=== PATIENT | female | born 1965 | race Caucasian/White ===

== ENCOUNTER 2018-04-09 06:50 | Inpatient (IN) | payer SELFPAY ==
[2018-04-09] VITALS (15 sets, daily range): BP systolic 109–156; BP diastolic 57–91
[~2018-04-09] VITALS: Ht 157.5 cm; Wt 71.7 kg
[2018-04-09] MEDS ORDERED: IV NORMAL SALINE 1000ML BAG 1,000 ML IV ONE ×2 (07:00→08:45)
[2018-04-09] MEDS ORDERED: ONDANSETRON PF 4 MG/2 ML VIAL. IV ONE (07:00)
[2018-04-09] MEDS ORDERED: MORPHINE SULFATE 4 MG/ML DISP.SYRIN. IV ONE ×2 (07:00→08:15)
[2018-04-09] MEDS ORDERED: IOHEXOL 300 MG/ML 100ML VIAL. IV ONE (07:15)
[2018-04-09] MEDS ORDERED: CONTRAST GIVEN. MC PRN (07:15)
--- NOTE | 2018-04-09 07:23 | PHYS DOC ---
Past Medical History Past Medical History: No Pertinent History, CAD Past Surgical History: Cholecystectomy, Hysterectomy Alcohol Use: None Drug Use: None Adult General Chief Complaint Chief Complaint: ABDOMINAL PAIN HPI HPI Patient is a 52 year old F who presents with epigastric abdominal pain. Pt woke up with severe pain in her upper abd. Denies prior history of similar. Denies vomiting or diarrhea. Had a BM this AM which was normal for her. Denies cp, sob, dizziness. Pt is a difficult historian. PMH: notes that a few years ago she 3 times due to a heart attack PSH: Cholecystectomy SH: +Tobacco, denies ETOH, denies drugs Review of Systems Review of Systems Constitutional: Denies fever or chills Eyes: Denies change in visual acuity, redness, or eye pain HENT: Denies nasal congestion or sore throat Respiratory: Denies cough or shortness of breath Cardiovascular: Denies chest pain GI: Denies nausea, vomiting, bloody stools or diarrhea, +abd pain : Denies dysuria or hematuria Musculoskeletal: Denies back pain or joint pain Integument: Denies rash or skin lesions Neurologic: Denies headache, focal weakness or sensory changes Endocrine: Denies polyuria or polydipsia All other systems were reviewed and found to be within normal limits, except as documented in this note. Current Medications Current Medications Current Medications Medications (Trade) Dose Ordered Sig/Rajesh Start Time Stop Time Status Last Admin Dose Admin Dexamethasone Sodium Phosphate (Decadron) 20 mg STK-MED ONCE 04/09/18 08:53 04/09/18 08:54 DC Fentanyl Citrate (Fentanyl 2ml Vial) 100 mcg STK-MED ONCE 04/09/18 08:54 04/09/18 08:56 DC Info (CONTRAST GIVEN -- Rx MONITORING) 1 each PRN DAILY PRN 04/09/18 07:15 04/11/18 07:14 Iohexol (Omnipaque 300 Mg/ml) 75 ml 1X ONCE 04/09/18 07:15 04/09/18 07:16 DC 04/09/18 08:20 75 ML Lidocaine HCl (Lidocaine Pf 2% Vial) 5 ml STK-MED ONCE 04/09/18 08:53 04/09/18 08:54 DC Lorazepam (Ativan) 1 mg 1X ONCE 04/09/18 08:45 04/09/18 08:46 DC 04/09/18 08:41 1 MG Midazolam HCl (Versed) 2 mg STK-MED ONCE 04/09/18 08:54 04/09/18 08:55 DC Morphine Sulfate (Morphine Sulfate) 4 mg PRN Q2HR PRN 04/09/18 09:15 04/10/18 09:14 UNV Ondansetron HCl (Zofran) 4 mg PRN Q8HRS PRN 04/09/18 09:15 04/10/18 09:14 UNV Piperacillin Sod/ Tazobactam Sod 3.375 gm/Sodium Chloride 50 ml @ 100 mls/hr 1X ONCE 04/09/18 09:00 04/09/18 09:29 04/09/18 08:54 100 MLS/HR Propofol 20 ml @ As Directed STK-MED ONCE 04/09/18 08:53 04/09/18 08:54 DC Rocuronium [place] (Zemuron) 50 mg STK-MED ONCE 04/09/18 08:53 04/09/18 08:54 DC Sodium Chloride 1,000 ml @ 1,000 mls/hr 1X ONCE 04/09/18 08:45 04/09/18 09:44 04/09/18 08:45 1,000 MLS/HR Allergies Allergies Allergies Coded Allergies Type Severity Reaction Last Updated Verified No Known Drug Allergies 12/17/14 No Physical Exam Physical Exam Constitutional: Well developed, well nourished, no acute distress, non-toxic appearance. HENT: Normocephalic, atraumatic, bilateral external ears normal, oropharynx moist, no oral exudates, nose normal. Eyes: PERRLA, EOMI, conjunctiva normal, no discharge. Neck: Normal range of motion, no tenderness, supple, no stridor. Cardiovascular:Heart rate regular rhythm, no murmur Lungs & Thorax: Bilateral breath sounds clear to auscultation Abdomen: Bowel sounds normal, soft, TTP upper abdomen Skin: Warm, dry, no erythema, no rash. Back: No tenderness, no CVA tenderness. Extremities: No tenderness, no cyanosis, no clubbing, ROM intact, no edema. Neurologic: Alert and oriented X 3, normal motor function, normal sensory function, no focal deficits noted. Current Patient Data Vital Signs Vital Signs Date Time Temp Pulse Resp B/P (MAP) Pulse Ox O2 Delivery O2 Flow Rate FiO2 04/09/18 08:10 32 97 Room Air 04/09/18 06:58 97.8 84 151/81 (104) 97.8 Lab Values Laboratory Tests Test 04/09/18 07:10 04/09/18 07:21 04/09/18 07:22 04/09/18 07:45 White Blood Count 18.1 x10^3/uL (4.0-11.0) H Red Blood Count 4.71 x10^6/uL (3.50-5.40) Hemoglobin 14.6 g/dL (12.0-15.5) Hematocrit 42.9 % (36.0-47.0) Mean Corpuscular Volume 91 fL (79-100) Mean Corpuscular Hemoglobin 31 pg (25-35) Mean Corpuscular Hemoglobin Concent 34 g/dL (31-37) Red Cell Distribution Width 13.2 % (11.5-14.5) Platelet Count 485 x10^3/uL (140-400) H Neutrophils (%) (Auto) 74 % (31-73) H Lymphocytes (%) (Auto) 18 % (24-48) L Monocytes (%) (Auto) 6 % (0-9) Eosinophils (%) (Auto) 2 % (0-3) Basophils (%) (Auto) 1 % (0-3) Neutrophils # (Auto) 13.3 x10^3uL (1.8-7.7) H Lymphocytes # (Auto) 3.2 x10^3/uL (1.0-4.8) Monocytes # (Auto) 1.2 x10^3/uL (0.0-1.1) H Eosinophils # (Auto) 0.3 x10^3/uL (0.0-0.7) Basophils # (Auto) 0.2 x10^3/uL (0.0-0.2) Platelet Estimate Pending Lactic Acid Level 1.5 mmol/L (0.4-2.0) POC Troponin I 0.00 ng/ml (<0.08) POC Hemoglobin 14.6 g/dL (12-15) POC Hematocrit 43 % (36-40) H POC Sodium 143 mmol/L (135-145) POC Potassium 3.7 mmol/L (3.5-5.0) POC Chloride 102 mmol/L (98-110) POC Total CO2 31 mmol/L (23-32) Anion Gap 14 mmol/L (6-14) POC Blood Urea Nitrogen 27 mg/dL (8-26) H POC Creatinine 1.2 mg/dL (0.5-1.4) Glucose Level 136 mg/dL (70-99) H POC Ionized Calcium (Melba) 1.15 mmol/L (1.13-1.32) Urine Collection Type U cath Urine Color Yellow Urine Clarity Clear Urine pH 7.0 Urine Specific [place] >=1.030 Urine Protein Negative mg/dL (NEG-TRACE) Urine Glucose (UA) Negative mg/dL (NEG) Urine Ketones (Stick) Negative mg/dL (NEG) Urine Blood Negative (NEG) Urine Nitrite Negative (NEG) Urine Bilirubin Negative (NEG) Urine Urobilinogen Dipstick 1.0 mg/dL (0.2 mg/dL) Urine Leukocyte Esterase Negative (NEG) Urine RBC 6-10 /HPF (0-2) Urine WBC 0 /HPF (0-4) Urine Squamous Epithelial Cells Few /LPF Urine Bacteria 0 /HPF (0-FEW) Urine Mucus Slight /LPF Urine Opiates Screen Pos (NEG) Urine Methadone Screen Neg (NEG) Urine Barbiturates Neg (NEG) Urine Phencyclidine Screen Neg (NEG) Urine Amphetamine/Methamphetamine Pos (NEG) Urine Benzodiazepines Screen Neg (NEG) Urine Cocaine Screen Neg (NEG) Urine Cannabinoids Screen Neg (NEG) Urine Ethyl Alcohol Neg (NEG) Test 04/09/18 08:00 Sodium Level 143 mmol/L (136-145) Potassium Level 3.9 mmol/L (3.5-5.1) Chloride Level 105 mmol/L (98-107) Carbon Dioxide Level 28 mmol/L (21-32) Anion Gap 10 (6-14) Blood Urea Nitrogen 27 mg/dL (7-20) H Creatinine 1.2 mg/dL (0.6-1.0) H Estimated GFR (Cockcroft-Gault) 47.0 BUN/Creatinine Ratio 23 (6-20) H Glucose Level 152 mg/dL (70-99) H Calcium Level 9.2 mg/dL (8.5-10.1) Total Bilirubin 0.2 mg/dL (0.2-1.0) Aspartate Amino Transferase (AST) 18 U/L (15-37) Alanine Aminotransferase (ALT) 27 U/L (14-59) Alkaline Phosphatase 121 U/L (46-116) H SR-Bds-R-Type Natriuretic Peptide 67 pg/mL (0-124) Total Protein 7.4 g/dL (6.4-8.2) Albumin 3.8 g/dL (3.4-5.0) Albumin/Globulin Ratio 1.1 (1.0-1.7) Lipase 176 U/L (73-393) Laboratory Tests 04/09/18 07:10 Laboratory Tests 04/09/18 07:22 04/09/18 08:00 EKG EKG NSR 74 bpm, no ST elev or depr to suggest ischemia, normal intervals, normal axis Radiology/Procedures Radiology/Procedures Critical care time was 30 minutes minutes exclusive of procedures. Pt has a high probability of life threatening condition. Course & Med Decision Making Course & Med Decision Making Pertinent Labs and Imaging studies reviewed. (See chart for details) 52 y/o F with h/o CAD presents for epigastric abdominal pain. Exam is benign. Noted epigastric TTP. Check labs. Morphine and zofran given. CT A/P and TEST PREPARATION TUTOR ordered. CXR shows free air. CT shows free air, likely perforated gastric ulcer. Zosyn ordered. Dr. Rojas consulted, pt is NPO, plan for OR today. Pt hemodynamically stable while in ER. continue fluid resuscitation. Admit to Dr. Infante [id number]. [place] Disclaimer Dragon Disclaimer This electronic medical record was generated, in whole or in part, using a voice recognition dictation system. Departure Departure Impression: Primary Impression: Pneumoperitoneum Disposition: ADMITTED INPATIENT Admitting Physician: David Ly Condition: CRITICAL Referrals: NO PCP (PCP) NUPUR WELLER MD Apr 09, 2018 07:22
[2018-04-09 07:32] LABS: BASO # 0.2 x10^3/uL (0.0-0.2); BASO % 1 % (0-3); EOS # 0.3 x10^3/uL (0.0-0.7); EOS % 2 % (0-3); HEMATOCRIT 42.9 % (36.0-47.0); HEMOGLOBIN 14.6 g/dL (12.0-15.5); LYMPH # 3.2 x10^3/uL (1.0-4.8); LYMPH % 18 % (24-48); MEAN CORPUSCULAR HEMOGLOBIN 31 pg (25-35); MEAN CORPUSCULAR HGB CONC 34 g/dL (31-37); MEAN CORPUSCULAR VOLUME 91 fL (79-100); MONO # 1.2 x10^3/uL (0.0-1.1); MONO % 6 % (0-9); NEUT # 13.3 x10^3uL (1.8-7.7); NEUT % 74 % (31-73); PLATELET COUNT 485 x10^3/uL (140-400); RED BLOOD COUNT 4.71 x10^6/uL (3.50-5.40); RED CELL DISTRIBUTION WIDTH 13.2 % (11.5-14.5); WHITE BLOOD COUNT 18.1 x10^3/uL (4.0-11.0)
[2018-04-09 07:43] LABS: CREATININE ISTAT 1.2 mg/dL (0.5-1.4); HEMOGLOBIN ISTAT 14.6 g/dL (12-15); ION CA ISTAT 1.15 mmol/L (1.13-1.32); POTASSIUM ISTAT 3.7 mmol/L (3.5-5.0)
--- NOTE | 2018-04-09 07:55 | RAD ---
Portable chest, 04/09/2018: HISTORY: Chest pain Comparison is made to a study from 12/17/2014. The heart size and pulmonary vascularity are normal. No pulmonary infiltrate is seen. There is no evidence of pleural fluid. There is a faint lucency along the dome of the right hemidiaphragm. The appearance raises the possibility of a tiny amount of free air in the abdomen. IMPRESSION: 1. No acute infiltrates. 2. Possible pneumoperitoneum. Given the history of severe abdominal pain, CT scanning of the abdomen and pelvis is suggested for further evaluation. Electronically signed by: Jake Nguyễn MD (04/09/2018 7:51 AM) [facility]
[2018-04-09 08:05] LABS: BARBITURATES NEG (NEG); BENZODIAZEPINES NEG (NEG); CANNABINOIDS NEG (NEG); COCAINE NEG (NEG); METHADONE NEG (NEG); OPIATES POS (NEG); PHENCYCLIDINE NEG (NEG)
[2018-04-09 08:06] LABS: AMPHETAMINE/METHAMPHETAMINE POS (NEG)
[2018-04-09 08:09] LABS: BACTERIA,URINE 0 /HPF (0-FEW); BILIRUBIN,URINE NEGATIVE (NEG); CLARITY,URINE CLEAR; COLOR,URINE YELLOW; NITRITE,URINE NEGATIVE (NEG); PROTEIN,URINE NEGATIVE (NEG-TRACE); SQUAMOUS EPITHELIAL CELL,UR FEW /LPF; WBC,URINE 0 /HPF (0-4)
[2018-04-09] MEDS ORDERED: MORPHINE SULFATE 10 MG/ML VIAL. IV ONE (08:15)
[2018-04-09 08:27] LABS: CALCIUM 9.2 mg/dL (8.5-10.1); CREATININE 1.2 mg/dL (0.6-1.0); POTASSIUM 3.9 mmol/L (3.5-5.1)
[2018-04-09 08:33] LABS: ALBUMIN 3.8 g/dL (3.4-5.0); ALBUMIN/GLOBULIN RATIO 1.1 (1.0-1.7); TOTAL BILIRUBIN 0.2 mg/dL (0.2-1.0); TOTAL PROTEIN 7.4 g/dL (6.4-8.2)
--- NOTE | 2018-04-09 08:46 | EKG ---
[facility] [address] [place] [address] Test Date: 2018-04-09 Test Time: 06:53:02 Pat Name: ANTHONY SCHMIDT Department: Room: Gender: F Transportation Maintenance Operator: : 1965 Requested By: NUPUR WELLER Order Number: [id number] Reading MD: Measurements Intervals [place] Rate: 74 P: 15 ME: 138 QRS: 64 QRSD: 90 T: 58 QT: 404 QTc: 454 Interpretive Statements SINUS RHYTHM LEFT ATRIAL ABNORMALITY ABNORMAL ECG RI6.01 No previous ECG available for comparison
--- NOTE | 2018-04-09 08:50 | RAD ---
PQRS Compliance Statement: One or more of the following individualized dose reduction techniques were utilized for this examination: 1. Automated exposure control 2. Adjustment of the mA and/or kV according to patient size 3. Use of iterative reconstruction technique CT ABD PELV W/ IV CONTRST ONLY Clinical Indication: SEVERE ABD PAIN Comparison: None. Technique: Helical CT imaging of the abdomen and pelvis is performed after 60 cc of Omnipaque 300 IV contrast. Oral contrast not given. Findings: Mild dependent atelectasis in the lung bases. Cardiac size normal. There is moderate pneumoperitoneum. The source is the stomach. There is a defect of the wall that is probably a perforated ulcer at the fundus body junction along the inner curvature, for example image 20. There is free air and fluid medial to the stomach and extending inferiorly to just inferior to the pancreas. The fluid collection inferiorly does not appear well organized but measures 3 cm AP by 6.6 cm transverse, image 29. Cholecystectomy. Liver, spleen, pancreas, adrenal glands, and abdominal aorta caliber are normal. Kidneys enhance symmetrically, no hydronephrosis. There is cortical scarring of the left kidney, for example coronal image 33. There is no dilated small bowel. The appendix is normal. Scattered stool in the colon. There is no colon wall thickening. Urinary bladder is decompressed. Hysterectomy. Trace pelvic free fluid. No acute bone abnormality. IMPRESSION: 1. There is moderate pneumoperitoneum and moderate free fluid medial and inferior to the stomach. There is gastric perforation at the fundus body junction along the lesser curvature. There may be underlying ulcer. 2. Trace pelvic free fluid. FOR INTERNAL CODING PURPOSES Critical result: Findings discussed with NUPUR WELLER at 04/09/2018 8:33 AM. RESULT CODE: (C) Electronically signed by: Emmanuel Nunez MD (04/09/2018 8:46 AM) [id number]
[2018-04-09] MEDS ORDERED: ONDANSETRON PF 4 MG/2 ML VIAL. ONE (08:53)
[2018-04-09] MEDS ORDERED: DEXAMETHASONE SOD PHOS 20 MG/5 ML VIAL. ONE (08:53)
[2018-04-09] MEDS ORDERED: LIDOCAINE 2% PF Vial for OR 5 ML VIAL. ONE (08:53)
[2018-04-09] MEDS ORDERED: ROCURONIUM 50 MG/5 ML VIAL. ONE ×2 (08:53→11:55)
[2018-04-09] MEDS ORDERED: PROPOFOL 20 ML IV ONE (08:53)
[2018-04-09] MEDS ORDERED: fentaNYL PF VIAL 100 MCG/2 ML VIAL ONE ×2 (08:54→11:00)
[2018-04-09] MEDS ORDERED: MIDAZOLAM HCL/PF 2 MG/2 ML VIAL. ONE (08:54)
[2018-04-09] MEDS ORDERED: PIPERACILLIN/TAZOBACTAM 3.375 GM in IV NORMAL SALINE 50ML 50 ML IV ONE (09:00)
[2018-04-09] MEDS ORDERED: BUPIVACAINE-EPI 0.25%-1:200000 50 ML VIAL. ONE (09:01)
[2018-04-09] MEDS ORDERED: ONDANSETRON PF 4 MG/2 ML VIAL. IV PRN ×3 (09:15→15:00)
[2018-04-09] MEDS ORDERED: MORPHINE SULFATE 4 MG/ML DISP.SYRIN. IV PRN (09:15)
[2018-04-09] MEDS ORDERED: IV RINGERS,LACTATED 1000ML 1,000 ML IV SCH (09:17)
[2018-04-09] MEDS ORDERED: MORPHINE SULFATE 2 MG/ML DISP.SYRIN. IV PRN ×2 (09:30→18:45)
[2018-04-09] MEDS ORDERED: LIDOCAINE 1% PF 2 ML VIAL. ID PRN (09:30)
[2018-04-09] MEDS ORDERED: PROCHLORPERAZINE 10 MG/2 ML VIAL. IV PRN (09:30)
[2018-04-09] MEDS ORDERED: fentaNYL PF VIAL 100 MCG/2 ML VIAL IV PRN ×2 (09:30)
--- NOTE | 2018-04-09 09:36 | PDOC2 ---
CONSULT Date of Consult Date of Consult DATE: 04/09/18 TIME: 09:31 History of Present Illness Reason for Visit: The patient is a 52 year old female who reported to the ER this morning with abdominal pain. She is a difficult historian due to her discomfort, but she states the pain started this morning. She is unable to provide further details and moans repeatedly. Past Medical History Past Medical History Records show CAD, IA, tobacco use Past Surgical History Past Surgical History lap cristina, hysterectomy Social History Social History admits to tobacco use, denies alcohol Current Medications Current Medications Current Medications Sodium Chloride 1,000 ml @ 1,000 mls/hr 1X ONCE IV Last administered on at 07:36; Start 04/09/18 at 07:00; Stop 04/09/18 at 07:59; Status DC Ondansetron HCl (Zofran) 4 mg 1X ONCE IV Last administered on 04/09/18at 07:35; Start 04/09/18 at 07:00; Stop 04/09/18 at 07:02; Status DC Morphine Sulfate (Morphine Sulfate) 4 mg 1X ONCE IV Last administered on at 07:36; Start 04/09/18 at 07:00; Stop 04/09/18 at 07:03; Status DC Iohexol (Omnipaque 300 Mg/ml) 75 ml 1X ONCE IV Last administered on 04/09/18at 08:20; Start 04/09/18 at 07:15; Stop 04/09/18 at 07:16; Status DC Info (CONTRAST GIVEN -- Rx MONITORING) 1 each PRN DAILY PRN MC SEE COMMENTS; Start 04/09/18 at 07:15; Stop 04/11/18 at 07:14 Morphine Sulfate (Morphine Sulfate) 4 mg 1X ONCE IV ; Start 04/09/18 at 08:15; Stop 04/09/18 at 08:15; Status DC Morphine Sulfate (Morphine Sulfate) 6 mg 1X ONCE IV Last administered on at 08:10; Start 04/09/18 at 08:15; Stop 04/09/18 at 08:16; Status DC Lorazepam (Ativan) 1 mg 1X ONCE IV Last administered on 04/09/18at 08:41; Start 04/09/18 at 08:45; Stop 04/09/18 at 08:46; Status DC Piperacillin Sod/ Tazobactam Sod 3.375 gm/Sodium Chloride 50 ml @ 100 mls/hr 1X ONCE IV Last administered on 04/09/18at 08:54; Start 04/09/18 at 09:00; Stop 04/09/18 at 09:29; Status DC Sodium Chloride 1,000 ml @ 1,000 mls/hr 1X ONCE IV Last administered on at 08:45; Start 04/09/18 at 08:45; Stop 04/09/18 at 09:44 Propofol 20 ml @ As Directed STK-MED ONCE IV ; Start 04/09/18 at 08:53; Stop 04/09 at 08:54; Status DC Lidocaine HCl (Lidocaine Pf 2% Vial) 5 ml STK-MED ONCE .ROUTE ; Start 04/09/18 at 08:53; Stop 04/09/18 at 08:54; Status DC Dexamethasone Sodium Phosphate (Decadron) 20 mg STK-MED ONCE .ROUTE ; Start 04/09 at 08:53; Stop 04/09/18 at 08:54; Status DC Ondansetron HCl (Zofran) 4 mg STK-MED ONCE .ROUTE ; Start 04/09/18 at 08:53; Stop 04/09/18 at 08:54; Status DC Rocuronium [place] (Zemuron) 50 mg STK-MED ONCE .ROUTE ; Start 04/09/18 at 08:53 ; Stop 04/09/18 at 08:54; Status DC Midazolam HCl (Versed) 2 mg STK-MED ONCE .ROUTE ; Start 04/09/18 at 08:54; Stop 04/09/18 at 08:55; Status DC Fentanyl Citrate (Fentanyl 2ml Vial) 100 mcg STK-MED ONCE .ROUTE ; Start at 08:54; Stop 04/09/18 at 08:56; Status DC Ondansetron HCl (Zofran) 4 mg PRN Q8HRS PRN IV NAUSEA/VOMITING; Start 04/09/18 at 09:15; Stop 04/10/18 at 09:14 Morphine Sulfate (Morphine Sulfate) 4 mg PRN Q2HR PRN IV PAIN; Start 04/09/18 at 09:15; Stop 04/10/18 at 09:14 Ondansetron HCl (Zofran) 4 mg PRN Q6HRS PRN IV NAUSEA/VOMITING; Start 04/09/18 at 09:30; Stop 04/10/18 at 09:29 Fentanyl Citrate (Fentanyl 2ml Vial) 25 mcg PRN Q5MIN PRN IV MILD PAIN; Start 04/09/18 at 09:30; Stop 04/10/18 at 09:29 Fentanyl Citrate (Fentanyl 2ml Vial) 50 mcg PRN Q5MIN PRN IV MODERATE TO SEVERE PAIN; Start 04/09/18 at 09:30; Stop 04/10/18 at 09:29 Morphine Sulfate (Morphine Sulfate) 1 mg PRN Q10MIN PRN IV SEVERE PAIN; Start 04/09/18 at 09:30; Stop 04/10/18 at 09:29 Ringer's Solution 1,000 ml @ 30 mls/hr Q24H IV ; Start 04/09/18 at 09:17; Stop 04/09/18 at 21:16 Lidocaine HCl (Xylocaine-Mpf 1% Vial) 2 ml PRN 1X PRN ID PRIOR TO IV START; Start 04/09/18 at 09:30; Stop 04/10/18 at 09:29 Prochlorperazine Edisylate (Compazine) 5 mg PACU PRN PRN IV NAUSEA, MRX1; Start 04/09/18 at 09:30; Stop 04/10/18 at 09:29 Allergies Allergies: Coded Allergies: No Known Drug Allergies (Unverified , 12/17/14) ROS Review of System unable to obtain ROS due to patients discomfort Physical Exam General: Alert, severe distress HEENT: Atraumatic Lungs: Clear to auscultation Abdomen: Other (diffusely tender, acute abdomen) Extremities: No clubbing, No cyanosis Skin: No rashes MUSCULOSKELETAL: No joint tenderness, No deformity Vitals VITALS Vital Signs Date Time Temp Pulse Resp B/P (MAP) Pulse Ox O2 Delivery O2 Flow Rate FiO2 04/09/18 09:00 82 31 157/72 (100) 98 04/09/18 08:40 Room Air 04/09/18 07:00 98.7 98.7 Labs Labs Laboratory Tests Test 04/09/18 07:10 04/09/18 07:21 04/09/18 07:22 04/09/18 07:45 White Blood Count 18.1 x10^3/uL (4.0-11.0) Red Blood Count 4.71 x10^6/uL (3.50-5.40) Hemoglobin 14.6 g/dL (12.0-15.5) Hematocrit 42.9 % (36.0-47.0) Mean Corpuscular Volume 91 fL (79-100) Mean Corpuscular Hemoglobin 31 pg (25-35) Mean Corpuscular Hemoglobin Concent 34 g/dL (31-37) Red Cell Distribution Width 13.2 % (11.5-14.5) Platelet Count 485 x10^3/uL (140-400) Neutrophils (%) (Auto) 74 % (31-73) Lymphocytes (%) (Auto) 18 % (24-48) Monocytes (%) (Auto) 6 % (0-9) Eosinophils (%) (Auto) 2 % (0-3) Basophils (%) (Auto) 1 % (0-3) Neutrophils # (Auto) 13.3 x10^3uL (1.8-7.7) Lymphocytes # (Auto) 3.2 x10^3/uL (1.0-4.8) Monocytes # (Auto) 1.2 x10^3/uL (0.0-1.1) Eosinophils # (Auto) 0.3 x10^3/uL (0.0-0.7) Basophils # (Auto) 0.2 x10^3/uL (0.0-0.2) Lactic Acid Level 1.5 mmol/L (0.4-2.0) Bedside Troponin I 0.00 ng/ml (<0.08) Bedside Hemoglobin 14.6 g/dL (12-15) Bedside Hematocrit 43 % (36-40) Bedside Sodium 143 mmol/L (135-145) Bedside Potassium 3.7 mmol/L (3.5-5.0) Bedside Chloride 102 mmol/L (98-110) Bedside Total CO2 31 mmol/L (23-32) Anion Gap 14 mmol/L (6-14) Bedside Blood Urea Nitrogen 27 mg/dL (8-26) Bedside Creatinine 1.2 mg/dL (0.5-1.4) Glucose Level 136 mg/dL (70-99) Bedside Ionized Calcium (Melba) 1.15 mmol/L (1.13-1.32) Urine Collection Type U cath Urine Color Yellow Urine Clarity Clear Urine pH 7.0 Urine Specific [place] >=1.030 Urine Protein Negative mg/dL (NEG-TRACE) Urine Glucose (UA) Negative mg/dL (NEG) Urine Ketones (Stick) Negative mg/dL (NEG) Urine Blood Negative (NEG) Urine Nitrite Negative (NEG) Urine Bilirubin Negative (NEG) Urine Urobilinogen Dipstick 1.0 mg/dL (0.2 mg/dL) Urine Leukocyte Esterase Negative (NEG) Urine RBC 6-10 /HPF (0-2) Urine WBC 0 /HPF (0-4) Urine Squamous Epithelial Cells Few /LPF Urine Bacteria 0 /HPF (0-FEW) Urine Mucus Slight /LPF Urine Opiates Screen Pos (NEG) Urine Methadone Screen Neg (NEG) Urine Barbiturates Neg (NEG) Urine Phencyclidine Screen Neg (NEG) Urine Amphetamine/Methamphetamine Pos (NEG) Urine Benzodiazepines Screen Neg (NEG) Urine Cocaine Screen Neg (NEG) Urine Cannabinoids Screen Neg (NEG) Urine Ethyl Alcohol Neg (NEG) Test 04/09/18 08:00 Sodium Level 143 mmol/L (136-145) Potassium Level 3.9 mmol/L (3.5-5.1) Chloride Level 105 mmol/L (98-107) Carbon Dioxide Level 28 mmol/L (21-32) Anion Gap 10 (6-14) Blood Urea Nitrogen 27 mg/dL (7-20) Creatinine 1.2 mg/dL (0.6-1.0) Estimated GFR (Cockcroft-Gault) 47.0 BUN/Creatinine Ratio 23 (6-20) Glucose Level 152 mg/dL (70-99) Calcium Level 9.2 mg/dL (8.5-10.1) Total Bilirubin 0.2 mg/dL (0.2-1.0) Aspartate Amino Transf (AST/SGOT) 18 U/L (15-37) Alanine Aminotransferase (ALT/SGPT) 27 U/L (14-59) Alkaline Phosphatase 121 U/L (46-116) VA-Dhx-N-Type Natriuretic Peptide 67 pg/mL (0-124) Total Protein 7.4 g/dL (6.4-8.2) Albumin 3.8 g/dL (3.4-5.0) Albumin/Globulin Ratio 1.1 (1.0-1.7) Lipase 176 U/L (73-393) Laboratory Tests Test 04/09/18 07:10 04/09/18 07:21 04/09/18 07:22 04/09/18 07:45 White Blood Count 18.1 x10^3/uL (4.0-11.0) Red Blood Count 4.71 x10^6/uL (3.50-5.40) Hemoglobin 14.6 g/dL (12.0-15.5) Hematocrit 42.9 % (36.0-47.0) Mean Corpuscular Volume 91 fL (79-100) Mean Corpuscular Hemoglobin 31 pg (25-35) Mean Corpuscular Hemoglobin Concent 34 g/dL (31-37) Red Cell Distribution Width 13.2 % (11.5-14.5) Platelet Count 485 x10^3/uL (140-400) Neutrophils (%) (Auto) 74 % (31-73) Lymphocytes (%) (Auto) 18 % (24-48) Monocytes (%) (Auto) 6 % (0-9) Eosinophils (%) (Auto) 2 % (0-3) Basophils (%) (Auto) 1 % (0-3) Neutrophils # (Auto) 13.3 x10^3uL (1.8-7.7) Lymphocytes # (Auto) 3.2 x10^3/uL (1.0-4.8) Monocytes # (Auto) 1.2 x10^3/uL (0.0-1.1) Eosinophils # (Auto) 0.3 x10^3/uL (0.0-0.7) Basophils # (Auto) 0.2 x10^3/uL (0.0-0.2) Lactic Acid Level 1.5 mmol/L (0.4-2.0) Bedside Troponin I 0.00 ng/ml (<0.08) Bedside Hemoglobin 14.6 g/dL (12-15) Bedside Hematocrit 43 % (36-40) Bedside Sodium 143 mmol/L (135-145) Bedside Potassium 3.7 mmol/L (3.5-5.0) Bedside Chloride 102 mmol/L (98-110) Bedside Total CO2 31 mmol/L (23-32) Anion Gap 14 mmol/L (6-14) Bedside Blood Urea Nitrogen 27 mg/dL (8-26) Bedside Creatinine 1.2 mg/dL (0.5-1.4) Glucose Level 136 mg/dL (70-99) Bedside Ionized Calcium (Melba) 1.15 mmol/L (1.13-1.32) Urine Collection Type U cath Urine Color Yellow Urine Clarity Clear Urine pH 7.0 Urine Specific [place] >=1.030 Urine Protein Negative mg/dL (NEG-TRACE) Urine Glucose (UA) Negative mg/dL (NEG) Urine Ketones (Stick) Negative mg/dL (NEG) Urine Blood Negative (NEG) Urine Nitrite Negative (NEG) Urine Bilirubin Negative (NEG) Urine Urobilinogen Dipstick 1.0 mg/dL (0.2 mg/dL) Urine Leukocyte Esterase Negative (NEG) Urine RBC 6-10 /HPF (0-2) Urine WBC 0 /HPF (0-4) Urine Squamous Epithelial Cells Few /LPF Urine Bacteria 0 /HPF (0-FEW) Urine Mucus Slight /LPF Urine Opiates Screen Pos (NEG) Urine Methadone Screen Neg (NEG) Urine Barbiturates Neg (NEG) Urine Phencyclidine Screen Neg (NEG) Urine Amphetamine/Methamphetamine Pos (NEG) Urine Benzodiazepines Screen Neg (NEG) Urine Cocaine Screen Neg (NEG) Urine Cannabinoids Screen Neg (NEG) Urine Ethyl Alcohol Neg (NEG) Test 04/09/18 08:00 Sodium Level 143 mmol/L (136-145) Potassium Level 3.9 mmol/L (3.5-5.1) Chloride Level 105 mmol/L (98-107) Carbon Dioxide Level 28 mmol/L (21-32) Anion Gap 10 (6-14) Blood Urea Nitrogen 27 mg/dL (7-20) Creatinine 1.2 mg/dL (0.6-1.0) Estimated GFR (Cockcroft-Gault) 47.0 BUN/Creatinine Ratio 23 (6-20) Glucose Level 152 mg/dL (70-99) Calcium Level 9.2 mg/dL (8.5-10.1) Total Bilirubin 0.2 mg/dL (0.2-1.0) Aspartate Amino Transf (AST/SGOT) 18 U/L (15-37) Alanine Aminotransferase (ALT/SGPT) 27 U/L (14-59) Alkaline Phosphatase 121 U/L (46-116) LI-Yug-D-Type Natriuretic Peptide 67 pg/mL (0-124) Total Protein 7.4 g/dL (6.4-8.2) Albumin 3.8 g/dL (3.4-5.0) Albumin/Globulin Ratio 1.1 (1.0-1.7) Lipase 176 U/L (73-393) Assessment/Plan Assessment/Plan 52 year old female with abdominal pain, CT showing free air, possible gastric source. Recommend to OR for evaluation/treatment. I attempted to inform the patient of the details and risks of surgery. She states that she understands and would like to proceed. SUDHIR ORTEGA MD Apr 09, 2018 09:36
[2018-04-09] MEDS ORDERED: ALBUMIN HUMAN 5% 500 ML IV ONE (10:23)
[2018-04-09 10:47] LABS: % BANDS 3 % (0-9); % EOS 2 % (0-5); % LYMPHS 28 % (24-48); % MONOS 6 % (0-10); % SEGS 61 % (35-66)
[2018-04-09 10:48] LABS: PLT ESTIMATE INCREASED (ADEQUATE)
--- NOTE | 2018-04-09 11:13 | PDOC1 ---
History and Physical Date of Admission Date of Admission DATE: 04/09/18 TIME: 11:12 Identification/Chief Complaint Chief Complaint 52 year old F who presents with epigastric abdominal pain. ACUTE severe pain in her upper abd THIS AM Past Medical History Past Medical History Past Medical History Past Medical History: No Pertinent History, CAD Past Surgical History: Cholecystectomy, Hysterectomy Alcohol Use: None Drug Use: METH FAMILY HX HTN Renal/: No pertinent hx Family History Family History: High Cholestrol Family History: Parent Social History Smoke: No ALCOHOL: rare Drugs: Crystal meth Current Medications Current Medications Current Medications Sodium Chloride 1,000 ml @ 1,000 mls/hr 1X ONCE IV Last administered on at 07:36; Start 04/09/18 at 07:00; Stop 04/09/18 at 07:59; Status DC Ondansetron HCl (Zofran) 4 mg 1X ONCE IV Last administered on 04/09/18at 07:35; Start 04/09/18 at 07:00; Stop 04/09/18 at 07:02; Status DC Morphine Sulfate (Morphine Sulfate) 4 mg 1X ONCE IV Last administered on at 07:36; Start 04/09/18 at 07:00; Stop 04/09/18 at 07:03; Status DC Iohexol (Omnipaque 300 Mg/ml) 75 ml 1X ONCE IV Last administered on 04/09/18at 08:20; Start 04/09/18 at 07:15; Stop 04/09/18 at 07:16; Status DC Info (CONTRAST GIVEN -- Rx MONITORING) 1 each PRN DAILY PRN MC SEE COMMENTS; Start 04/09/18 at 07:15; Stop 04/11/18 at 07:14 Morphine Sulfate (Morphine Sulfate) 4 mg 1X ONCE IV ; Start 04/09/18 at 08:15; Stop 04/09/18 at 08:15; Status DC Morphine Sulfate (Morphine Sulfate) 6 mg 1X ONCE IV Last administered on at 08:10; Start 04/09/18 at 08:15; Stop 04/09/18 at 08:16; Status DC Lorazepam (Ativan) 1 mg 1X ONCE IV Last administered on 04/09/18at 08:41; Start 04/09/18 at 08:45; Stop 04/09/18 at 08:46; Status DC Piperacillin Sod/ Tazobactam Sod 3.375 gm/Sodium Chloride 50 ml @ 100 mls/hr 1X ONCE IV Last administered on 04/09/18at 08:54; Start 04/09/18 at 09:00; Stop 04/09/18 at 09:29; Status DC Sodium Chloride 1,000 ml @ 1,000 mls/hr 1X ONCE IV Last administered on at 08:45; Start 04/09/18 at 08:45; Stop 04/09/18 at 09:44; Status DC Propofol 20 ml @ As Directed STK-MED ONCE IV ; Start 04/09/18 at 08:53; Stop 04/09 at 08:54; Status DC Lidocaine HCl (Lidocaine Pf 2% Vial) 5 ml STK-MED ONCE .ROUTE ; Start 04/09/18 at 08:53; Stop 04/09/18 at 08:54; Status DC Dexamethasone Sodium Phosphate (Decadron) 20 mg STK-MED ONCE .ROUTE ; Start 04/09 at 08:53; Stop 04/09/18 at 08:54; Status DC Ondansetron HCl (Zofran) 4 mg STK-MED ONCE .ROUTE ; Start 04/09/18 at 08:53; Stop 04/09/18 at 08:54; Status DC Rocuronium [place] (Zemuron) 50 mg STK-MED ONCE .ROUTE ; Start 04/09/18 at 08:53 ; Stop 04/09/18 at 08:54; Status DC Midazolam HCl (Versed) 2 mg STK-MED ONCE .ROUTE ; Start 04/09/18 at 08:54; Stop 04/09/18 at 08:55; Status DC Fentanyl Citrate (Fentanyl 2ml Vial) 100 mcg STK-MED ONCE .ROUTE ; Start at 08:54; Stop 04/09/18 at 08:56; Status DC Ondansetron HCl (Zofran) 4 mg PRN Q8HRS PRN IV NAUSEA/VOMITING; Start 04/09/18 at 09:15; Stop 04/10/18 at 09:14 Morphine Sulfate (Morphine Sulfate) 4 mg PRN Q2HR PRN IV PAIN; Start 04/09/18 at 09:15; Stop 04/10/18 at 09:14 Ondansetron HCl (Zofran) 4 mg PRN Q6HRS PRN IV NAUSEA/VOMITING; Start 04/09/18 at 09:30; Stop 04/10/18 at 09:29 Fentanyl Citrate (Fentanyl 2ml Vial) 25 mcg PRN Q5MIN PRN IV MILD PAIN; Start 04/09/18 at 09:30; Stop 04/10/18 at 09:29 Fentanyl Citrate (Fentanyl 2ml Vial) 50 mcg PRN Q5MIN PRN IV MODERATE TO SEVERE PAIN; Start 04/09/18 at 09:30; Stop 04/10/18 at 09:29 Morphine Sulfate (Morphine Sulfate) 1 mg PRN Q10MIN PRN IV SEVERE PAIN; Start 04/09/18 at 09:30; Stop 04/10/18 at 09:29 Ringer's Solution 1,000 ml @ 30 mls/hr Q24H IV ; Start 04/09/18 at 09:17; Stop 04/09/18 at 21:16 Lidocaine HCl (Xylocaine-Mpf 1% Vial) 2 ml PRN 1X PRN ID PRIOR TO IV START; Start 04/09/18 at 09:30; Stop 04/10/18 at 09:29 Prochlorperazine Edisylate (Compazine) 5 mg PACU PRN PRN IV NAUSEA, MRX1; Start 04/09/18 at 09:30; Stop 04/10/18 at 09:29 Bupivacaine HCl/ Epinephrine Bitart (Marcaine-Epi 0.25%-[id number]) 50 ml STK-MED ONCE .ROUTE ; Start 04/09/18 at 09:01; Stop 04/09/18 at 10:02; Status DC Albumin Human 500 ml @ As Directed STK-MED ONCE IV ; Start 04/09/18 at 10:23; Stop 04/09/18 at 10:24; Status DC Fentanyl Citrate (Fentanyl 2ml Vial) 100 mcg STK-MED ONCE .ROUTE ; Start at 11:00; Stop 04/09/18 at 11:01; Status DC Allergies Allergies: Coded Allergies: No Known Drug Allergies (Unverified , 12/17/14) ROS Review of System Review of Systems Review of Systems Constitutional: Denies fever or chills Eyes: Denies change in visual acuity, redness, or eye pain HENT: Denies nasal congestion or sore throat Respiratory: Denies cough or shortness of breath Cardiovascular: Denies chest pain GI: Denies nausea, vomiting, bloody stools or diarrhea, +abd pain : Denies dysuria or hematuria Musculoskeletal: Denies back pain or joint pain Integument: Denies rash or skin lesions Neurologic: Denies headache, focal weakness or sensory changes Endocrine: Denies polyuria or polydipsia 14 PT systems were reviewed and found to be within normal limits, except as documented PSYCHOLOGICAL ROS: YES: Anxiety Physical Exam Physical Exam Physical Exam Physical Exam Constitutional: Well developed, well nourished, severe acute distress, non- toxic appearance. HENT: Normocephalic, atraumatic, bilateral external ears normal, oropharynx moist, no oral exudates, nose normal. Eyes: PERRLA, EOMI, conjunctiva normal, no discharge. Neck: Normal range of motion, no tenderness, supple, no stridor. Cardiovascular:Heart rate regular rhythm, no murmur Lungs & Thorax: Bilateral breath sounds clear to auscultation Abdomen: TTP upper abdomen Skin: Warm, dry, no erythema, no rash. Back: No tenderness, no CVA tenderness. Extremities: No tenderness, no cyanosis, no clubbing, ROM intact, no edema. Neurologic: Alert and oriented X 3, normal motor function, no focal deficits noted. General: Cooperative Breasts: Not examined Rectal Exam: not examined Extremities: No cyanosis Neuro: Cranial nerves 3-12 NL Vitals Vitals Vital Signs Date Time Temp Pulse Resp B/P (MAP) Pulse Ox O2 Delivery O2 Flow Rate FiO2 04/09/18 09:00 82 31 157/72 (100) 98 04/09/18 08:40 Room Air 04/09/18 07:00 98.7 98.7 Labs Labs Laboratory Tests Test 04/09/18 07:10 04/09/18 07:21 04/09/18 07:22 04/09/18 07:45 White Blood Count 18.1 x10^3/uL (4.0-11.0) Red Blood Count 4.71 x10^6/uL (3.50-5.40) Hemoglobin 14.6 g/dL (12.0-15.5) Hematocrit 42.9 % (36.0-47.0) Mean Corpuscular Volume 91 fL (79-100) Mean Corpuscular Hemoglobin 31 pg (25-35) Mean Corpuscular Hemoglobin Concent 34 g/dL (31-37) Red Cell Distribution Width 13.2 % (11.5-14.5) Platelet Count 485 x10^3/uL (140-400) Neutrophils (%) (Auto) 74 % (31-73) Lymphocytes (%) (Auto) 18 % (24-48) Monocytes (%) (Auto) 6 % (0-9) Eosinophils (%) (Auto) 2 % (0-3) Basophils (%) (Auto) 1 % (0-3) Neutrophils # (Auto) 13.3 x10^3uL (1.8-7.7) Lymphocytes # (Auto) 3.2 x10^3/uL (1.0-4.8) Monocytes # (Auto) 1.2 x10^3/uL (0.0-1.1) Eosinophils # (Auto) 0.3 x10^3/uL (0.0-0.7) Basophils # (Auto) 0.2 x10^3/uL (0.0-0.2) Segmented Neutrophils % 61 % (35-66) Band Neutrophils % 3 % (0-9) Lymphocytes % 28 % (24-48) Monocytes % 6 % (0-10) Eosinophils % 2 % (0-5) Platelet Estimate Increased (ADEQUATE) Lactic Acid Level 1.5 mmol/L (0.4-2.0) Bedside Troponin I 0.00 ng/ml (<0.08) Bedside Hemoglobin 14.6 g/dL (12-15) Bedside Hematocrit 43 % (36-40) Bedside Sodium 143 mmol/L (135-145) Bedside Potassium 3.7 mmol/L (3.5-5.0) Bedside Chloride 102 mmol/L (98-110) Bedside Total CO2 31 mmol/L (23-32) Anion Gap 14 mmol/L (6-14) Bedside Blood Urea Nitrogen 27 mg/dL (8-26) Bedside Creatinine 1.2 mg/dL (0.5-1.4) Glucose Level 136 mg/dL (70-99) Bedside Ionized Calcium (Melba) 1.15 mmol/L (1.13-1.32) Urine Collection Type U cath Urine Color Yellow Urine Clarity Clear Urine pH 7.0 Urine Specific [place] >=1.030 Urine Protein Negative mg/dL (NEG-TRACE) Urine Glucose (UA) Negative mg/dL (NEG) Urine Ketones (Stick) Negative mg/dL (NEG) Urine Blood Negative (NEG) Urine Nitrite Negative (NEG) Urine Bilirubin Negative (NEG) Urine Urobilinogen Dipstick 1.0 mg/dL (0.2 mg/dL) Urine Leukocyte Esterase Negative (NEG) Urine RBC 6-10 /HPF (0-2) Urine WBC 0 /HPF (0-4) Urine Squamous Epithelial Cells Few /LPF Urine Bacteria 0 /HPF (0-FEW) Urine Mucus Slight /LPF Urine Opiates Screen Pos (NEG) Urine Methadone Screen Neg (NEG) Urine Barbiturates Neg (NEG) Urine Phencyclidine Screen Neg (NEG) Urine Amphetamine/Methamphetamine Pos (NEG) Urine Benzodiazepines Screen Neg (NEG) Urine Cocaine Screen Neg (NEG) Urine Cannabinoids Screen Neg (NEG) Urine Ethyl Alcohol Neg (NEG) Test 04/09/18 08:00 Sodium Level 143 mmol/L (136-145) Potassium Level 3.9 mmol/L (3.5-5.1) Chloride Level 105 mmol/L (98-107) Carbon Dioxide Level 28 mmol/L (21-32) Anion Gap 10 (6-14) Blood Urea Nitrogen 27 mg/dL (7-20) Creatinine 1.2 mg/dL (0.6-1.0) Estimated GFR (Cockcroft-Gault) 47.0 BUN/Creatinine Ratio 23 (6-20) Glucose Level 152 mg/dL (70-99) Calcium Level 9.2 mg/dL (8.5-10.1) Total Bilirubin 0.2 mg/dL (0.2-1.0) Aspartate Amino Transf (AST/SGOT) 18 U/L (15-37) Alanine Aminotransferase (ALT/SGPT) 27 U/L (14-59) Alkaline Phosphatase 121 U/L (46-116) RC-Bmc-Y-Type Natriuretic Peptide 67 pg/mL (0-124) Total Protein 7.4 g/dL (6.4-8.2) Albumin 3.8 g/dL (3.4-5.0) Albumin/Globulin Ratio 1.1 (1.0-1.7) Lipase 176 U/L (73-393) Laboratory Tests Test 04/09/18 07:10 04/09/18 07:21 8/8/18 07:22 04/09/18 07:45 White Blood Count 18.1 x10^3/uL (4.0-11.0) Red Blood Count 4.71 x10^6/uL (3.50-5.40) Hemoglobin 14.6 g/dL (12.0-15.5) Hematocrit 42.9 % (36.0-47.0) Mean Corpuscular Volume 91 fL (79-100) Mean Corpuscular Hemoglobin 31 pg (25-35) Mean Corpuscular Hemoglobin Concent 34 g/dL (31-37) Red Cell Distribution Width 13.2 % (11.5-14.5) Platelet Count 485 x10^3/uL (140-400) Neutrophils (%) (Auto) 74 % (31-73) Lymphocytes (%) (Auto) 18 % (24-48) Monocytes (%) (Auto) 6 % (0-9) Eosinophils (%) (Auto) 2 % (0-3) Basophils (%) (Auto) 1 % (0-3) Neutrophils # (Auto) 13.3 x10^3uL (1.8-7.7) Lymphocytes # (Auto) 3.2 x10^3/uL (1.0-4.8) Monocytes # (Auto) 1.2 x10^3/uL (0.0-1.1) Eosinophils # (Auto) 0.3 x10^3/uL (0.0-0.7) Basophils # (Auto) 0.2 x10^3/uL (0.0-0.2) Segmented Neutrophils % 61 % (35-66) Band Neutrophils % 3 % (0-9) Lymphocytes % 28 % (24-48) Monocytes % 6 % (0-10) Eosinophils % 2 % (0-5) Platelet Estimate Increased (ADEQUATE) Lactic Acid Level 1.5 mmol/L (0.4-2.0) Bedside Troponin I 0.00 ng/ml (<0.08) Bedside Hemoglobin 14.6 g/dL (12-15) Bedside Hematocrit 43 % (36-40) Bedside Sodium 143 mmol/L (135-145) Bedside Potassium 3.7 mmol/L (3.5-5.0) Bedside Chloride 102 mmol/L (98-110) Bedside Total CO2 31 mmol/L (23-32) Anion Gap 14 mmol/L (6-14) Bedside Blood Urea Nitrogen 27 mg/dL (8-26) Bedside Creatinine 1.2 mg/dL (0.5-1.4) Glucose Level 136 mg/dL (70-99) Bedside Ionized Calcium (Melba) 1.15 mmol/L (1.13-1.32) Urine Collection Type U cath Urine Color Yellow Urine Clarity Clear Urine pH 7.0 Urine Specific [place] >=1.030 Urine Protein Negative mg/dL (NEG-TRACE) Urine Glucose (UA) Negative mg/dL (NEG) Urine Ketones (Stick) Negative mg/dL (NEG) Urine Blood Negative (NEG) Urine Nitrite Negative (NEG) Urine Bilirubin Negative (NEG) Urine Urobilinogen Dipstick 1.0 mg/dL (0.2 mg/dL) Urine Leukocyte Esterase Negative (NEG) Urine RBC 6-10 /HPF (0-2) Urine WBC 0 /HPF (0-4) Urine Squamous Epithelial Cells Few /LPF Urine Bacteria 0 /HPF (0-FEW) Urine Mucus Slight /LPF Urine Opiates Screen Pos (NEG) Urine Methadone Screen Neg (NEG) Urine Barbiturates Neg (NEG) Urine Phencyclidine Screen Neg (NEG) Urine Amphetamine/Methamphetamine Pos (NEG) Urine Benzodiazepines Screen Neg (NEG) Urine Cocaine Screen Neg (NEG) Urine Cannabinoids Screen Neg (NEG) Urine Ethyl Alcohol Neg (NEG) Test 04/09/18 08:00 Sodium Level 143 mmol/L (136-145) Potassium Level 3.9 mmol/L (3.5-5.1) Chloride Level 105 mmol/L (98-107) Carbon Dioxide Level 28 mmol/L (21-32) Anion Gap 10 (6-14) Blood Urea Nitrogen 27 mg/dL (7-20) Creatinine 1.2 mg/dL (0.6-1.0) Estimated GFR (Cockcroft-Gault) 47.0 BUN/Creatinine Ratio 23 (6-20) Glucose Level 152 mg/dL (70-99) Calcium Level 9.2 mg/dL (8.5-10.1) Total Bilirubin 0.2 mg/dL (0.2-1.0) Aspartate Amino Transf (AST/SGOT) 18 U/L (15-37) Alanine Aminotransferase (ALT/SGPT) 27 U/L (14-59) Alkaline Phosphatase 121 U/L (46-116) LY-Ujk-H-Type Natriuretic Peptide 67 pg/mL (0-124) Total Protein 7.4 g/dL (6.4-8.2) Albumin 3.8 g/dL (3.4-5.0) Albumin/Globulin Ratio 1.1 (1.0-1.7) Lipase 176 U/L (73-393) Images Images CT ABD PELV W/ IV CONTRST ONLY Clinical Indication: SEVERE ABD PAIN Comparison: None. Technique: Helical CT imaging of the abdomen and pelvis is performed after 60 cc of Omnipaque 300 IV contrast. Oral contrast not given. Findings: Mild dependent atelectasis in the lung bases. Cardiac size normal. There is moderate pneumoperitoneum. The source is the stomach. There is a defect of the wall that is probably a perforated ulcer at the fundus body junction along the inner curvature, for example image 20. There is free air and fluid medial to the stomach and extending inferiorly to just inferior to the pancreas. The fluid collection inferiorly does not appear well organized but measures 3 cm AP by 6.6 cm transverse, image 29. Cholecystectomy. Liver, spleen, pancreas, adrenal glands, and abdominal aorta caliber are normal. Kidneys enhance symmetrically, no hydronephrosis. There is cortical scarring of the left kidney, for example coronal image 33. There is no dilated small bowel. The appendix is normal. Scattered stool in the colon. There is no colon wall thickening. Urinary bladder is decompressed. Hysterectomy. Trace pelvic free fluid. No acute bone abnormality. IMPRESSION: 1. There is moderate pneumoperitoneum and moderate free fluid medial and inferior to the stomach. There is gastric perforation at the fundus body junction along the lesser curvature. There may be underlying ulcer. 2. Trace pelvic free fluid. VTE Prophylaxis Ordered VTE Prophylaxis Devices: Yes VTE Pharmacological Prophylaxi: Yes Assessment/Plan Assessment/Plan IMPRESSION 1 moderate pneumoperitoneum and moderate free fluid medial and inferior to the stomach. 2. gastric perforation at the fundus body junction along the lesser curvature 3. meth abuse hx 4. tobacco abuse PLAN 1. ICU ADMIT 2. GEN SURG CONSULT stat in er 3. SCD'S 4. iv ativan 2 mg q 4 hrs prn agitation 5. ID CONSULT, Antibiotics per id d/w family in room 38 min cc time Operative Note Operative Note Operative Note: Preoperative Diagnosis: Perforated viscus Postoperative Diagnosis: Gastric perforation Procedure: Exploratory laparoscopy, exploratory laparotomy, subtotal gastrectomy with Juan Luis-en-Y reconstruction Surgeon: Bob Acid Tender: Dago VILLATORO Anesthesia: Gen. EBL: 200 mL Specimen: Stomach portion to pathology Drains: 19 [place] round Reji drain to left upper quadrant, Milton drain to subcutaneous tissue DAXA DAWN MD Apr 09, 2018 11:13
[2018-04-09] MEDS ORDERED: GLYCOPYRROLATE 1 MG/5 ML VIAL. ONE (13:26)
[2018-04-09] MEDS ORDERED: NEOSTIGMINE METHYLSULFATE 5 MG/5 ML SYRINGE. ONE (13:26)
[2018-04-09] MEDS ORDERED: SEVOFLURANE > 120 MINUTES. IH ONE (13:53)
[2018-04-09] MEDS ORDERED: MORPHINE SULFATE 10 MG/ML VIAL. ONE (14:57)
[2018-04-09] MEDS ORDERED: 0.9 % SODIUM CHLORIDE 10 ML DISP.SYRIN. IV PRN (15:00)
[2018-04-09] MEDS ORDERED: MORPHINE SULFATE/PF 30 ML IV PRN (15:00)
--- NOTE | 2018-04-09 15:21 | PDOC4 ---
Operative Note Operative Note Operative Note: Preoperative Diagnosis: Perforated viscus Postoperative Diagnosis: Gastric perforation Procedure: Exploratory laparoscopy, exploratory laparotomy, subtotal gastrectomy with Juan Luis-en-Y reconstruction Surgeon: Bob [place] Electrician: Dago VILLATORO Anesthesia: Gen. EBL: 200 mL Specimen: Stomach portion to pathology Drains: 19 [place] round Reji drain to left upper quadrant, Milton drain to subcutaneous tissue Complications: None Indication: The patient is a 52-year-old female who reported to emergency department with severe abdominal pain. Her evaluation is consistent with perforated viscus showing pneumoperitoneum. We recommend urgent surgical intervention. The details and risks of surgery were discussed which include bleeding, infection, anastomotic leak, pain, hernia formation, anesthesia risk, visceral injury, potential need for additional surgery or procedure. She understands and would like to proceed. Description: The patient was taken to the operating room and placed supine on the operating table. Gen. anesthesia was performed. The abdomen was prepped with ChloraPrep and draped in a standard surgical manner. A small supraumbilical incision was made in the skin through which a Veress needle was inserted and the pneumoperitoneum was created. A visualized 5 mm trocar was inserted and the laparoscope was introduced. The patient had omentum adhesed up to the anterior abdominal wall. Another 5 mm trochar was placed in the right lateral abdomen. With a combination of sharp dissection and the Harmonic scalpel , the omentum was cleared away from the abdominal wall. We then placed an additional 5 mm trocar in the patient's right abdomen. We directed our attention toward the stomach. There was a clear abnormality with turbid contaminated fluid present. Further inspection showed the involved area to be at the lesser curvature. There was a substantial amount of perigastric inflammatory change and dark fluid making visualization of this area difficult. Based on this location we felt it prudent to proceed with an open approach. The pneumoperitoneum was relieved and the laparoscopic ports were removed. An upper vertical midline incision was made in the skin with a scalpel which was carried just below the umbilicus. Cautery dissection was carried down to the fascia and peritoneum. The Omni retractor was used for the remainder of the case to facilitate exposure. We then were able to better visualize and inspect the lesser curvature of the stomach. The perforation site appeared to be along the lesser curvature in the proximal portion of the stomach. There was a sizable defect with ongoing leakage. The perforation site appeared to be unusual for a typical peptic ulcer and the gastric wall showed marked degradation without the expected surrounding inflammatory change. Given the size and unusual appearance of the ulcer we felt it most prudent for a resection of this portion of the stomach. The duodenum distal to the pylorus was mobilized and divided with a EUNICE -75 stapling device. The omental lesser sac was then opened and divided along the mid greater curvature and inferior aspect of the stomach using the Harmonic scalpel. Some of the vessels supplying the lesser curvature were ligated with 2- 0 Vicryl and divided. We continued the dissection along the lesser curvature just proximal to the perforation site. At this level the stomach was divided using a TA 90 stapler. The specimen was sent to pathology. Gross pathologic evaluation showed the ulcer present with no evidence of tumor or other mucosal abnormality. We then proceeded with a Juan Luis-en-Y reconstruction. The ligament of Treitz was identified and an area selected approximately 40 cm distal for the Juan Luis-en-Y. The bowel was divided at this level with a EUNICE-75 stapling device. The Juan Luis limb was then brought up retrocolic to the gastric remnant. A 2 layer hand sewn end-to-side anastomosis was then constructed between the stomach remnant and small bowel. The posterior seromuscular layer was developed first with interrupted 3-0 Vicryl sutures. The next layer was then constructed with 3 -0 PDS in a running locked fashion. The anterior seromuscular layer was then completed with 3-0 Vicryl sutures. The second anastomosis involve the Y limb small bowel to the Juan Luis limb which was performed in a similar 2 layer handsewn fashion. Upon completion both anastomoses appeared patent and viable. The abdominal cavity was irrigated with sterile saline which was and suctioned. No other abnormalities were identified. A 19 [place] round Reji drain was then placed in proximity to the anastomosis with an exit site in the right lateral trocar incision. This was secured to the skin with 2-0 silk. The fascia was then approximated with a running 1 PDS suture. A Milton drain was left in the subcutaneous tissue which exited inferiorly. The skin was closed over the Milton with jose r. A sterile dressing was then applied. The patient tolerated the procedure well and was sent to the recovery room in stable condition. At the end of the case all counts were correct. ORETGA,SUDHIR D MD Apr 09, 2018 15:21
[2018-04-09] MEDS ORDERED: ENOXAPARIN 40 MG/0.4 ML SYRINGE. SQ SCH (15:30)
[2018-04-09] MEDS: POTASSIUM CL 20MEQ-0.45% NACL 1,000 ML IV SCH (16:17)
[2018-04-09] MEDS: PANTOPRAZOLE SODIUM IV DRIP 80 MG in IV NORMAL SALINE 100ML 100 ML IV SCH ×2 (16:28→23:58)
[2018-04-09] MEDS ORDERED: PIP/TAZO PER PHARMACY MC PRN (18:30)
[2018-04-09] MEDS ORDERED: VANCOMYCIN 1.75 GM in IV NORMAL SALINE 500ML BAG 500 ML IV ONE (19:00)
[2018-04-09] MEDS: PIPERACILLIN/TAZOBACTAM 3.375 GM in IV NORMAL SALINE 50ML 50 ML IV SCH ×2 (19:55→23:57)
[2018-04-09] MEDS: FLUCONAZOLE 400MG/200ML PREMIX 200 ML IV SCH (19:56)
[2018-04-09] MEDS: VANCOMYCIN PER PHARMACY MC PRN (20:02)
[2018-04-09] MEDS ORDERED: diphenhydrAMINE 50 MG/ML VIAL IVP ONE (20:45)
[2018-04-09] MEDS ORDERED: HALOPERIDOL LACTATE 5 MG/ML VIAL. IVP ONE (20:45)
[2018-04-10] VITALS (20 sets, daily range): BP systolic 95–125; BP diastolic 58–74
[2018-04-10] MEDS: MORPHINE SULFATE 4 MG/ML DISP.SYRIN. IV PRN ×7 (00:05→20:43)
[2018-04-10] MEDS: POTASSIUM CL 20MEQ-0.45% NACL 1,000 ML IV SCH ×3 (00:29→16:54)
[2018-04-10] MEDS: ENOXAPARIN 40 MG/0.4 ML SYRINGE. SQ SCH (05:58)
[2018-04-10] MEDS: PIPERACILLIN/TAZOBACTAM 3.375 GM in IV NORMAL SALINE 50ML 50 ML IV SCH ×3 (06:00→17:18)
[2018-04-10 06:53] LABS: BASO % 0 % (0-3); EOS % 0 % (0-3); HEMATOCRIT 31.9 % (36.0-47.0); HEMOGLOBIN 10.9 g/dL (12.0-15.5); LYMPH # 1.8 x10^3/uL (1.0-4.8); LYMPH % 10 % (24-48); MEAN CORPUSCULAR HEMOGLOBIN 32 pg (25-35); MEAN CORPUSCULAR HGB CONC 34 g/dL (31-37); MEAN CORPUSCULAR VOLUME 93 fL (79-100); MONO # 1.1 x10^3/uL (0.0-1.1); MONO % 7 % (0-9); NEUT % 83 % (31-73); PLATELET COUNT 300 x10^3/uL (140-400); RED BLOOD COUNT 3.44 x10^6/uL (3.50-5.40); RED CELL DISTRIBUTION WIDTH 13.5 % (11.5-14.5)
[2018-04-10 07:40] LABS: ALBUMIN 2.6 g/dL (3.4-5.0); ALBUMIN/GLOBULIN RATIO 0.8 (1.0-1.7); CALCIUM 7.8 mg/dL (8.5-10.1); TOTAL BILIRUBIN 0.5 mg/dL (0.2-1.0); TOTAL PROTEIN 5.7 g/dL (6.4-8.2)
--- NOTE | 2018-04-10 08:18 | PDOC ---
Infectious Disease Note Vital Sign Vital Signs Vital Signs Date Time Temp Pulse Resp B/P (MAP) Pulse Ox O2 Delivery O2 Flow Rate FiO2 04/10/18 07:00 99.4 90 22 107/59 (75) 95 Nasal Cannula 2.0 99.4 Labs Lab Laboratory Tests Test 04/09/18 08:00 04/09/18 18:10 04/10/18 06:30 Sodium Level 143 mmol/L (136-145) 141 mmol/L (136-145) Potassium Level 3.9 mmol/L (3.5-5.1) 4.0 mmol/L (3.5-5.1) Chloride Level 105 mmol/L (98-107) 109 mmol/L (98-107) Carbon Dioxide Level 28 mmol/L (21-32) 22 mmol/L (21-32) Anion Gap 10 (6-14) 10 (6-14) Blood Urea Nitrogen 27 mg/dL (7-20) 15 mg/dL (7-20) Creatinine 1.2 mg/dL (0.6-1.0) 1.0 mg/dL (0.6-1.0) Estimated GFR (Cockcroft-Gault) 47.0 58.0 BUN/Creatinine Ratio 23 (6-20) 15 (6-20) Glucose Level 152 mg/dL (70-99) 100 mg/dL (70-99) Calcium Level 9.2 mg/dL (8.5-10.1) 7.8 mg/dL (8.5-10.1) Total Bilirubin 0.2 mg/dL (0.2-1.0) 0.5 mg/dL (0.2-1.0) Aspartate Amino Transf (AST/SGOT) 18 U/L (15-37) 84 U/L (15-37) Alanine Aminotransferase (ALT/SGPT) 27 U/L (14-59) 97 U/L (14-59) Alkaline Phosphatase 121 U/L (46-116) 63 U/L (46-116) NA-Wpo-N-Type Natriuretic Peptide 67 pg/mL (0-124) Total Protein 7.4 g/dL (6.4-8.2) 5.7 g/dL (6.4-8.2) Albumin 3.8 g/dL (3.4-5.0) 2.6 g/dL (3.4-5.0) Albumin/Globulin Ratio 1.1 (1.0-1.7) 0.8 (1.0-1.7) Lipase 176 U/L (73-393) Lactic Acid Level 1.7 mmol/L (0.4-2.0) White Blood Count 17.0 x10^3/uL (4.0-11.0) Red Blood Count 3.44 x10^6/uL (3.50-5.40) Hemoglobin 10.9 g/dL (12.0-15.5) Hematocrit 31.9 % (36.0-47.0) Mean Corpuscular Volume 93 fL (79-100) Mean Corpuscular Hemoglobin 32 pg (25-35) Mean Corpuscular Hemoglobin Concent 34 g/dL (31-37) Red Cell Distribution Width 13.5 % (11.5-14.5) Platelet Count 300 x10^3/uL (140-400) Neutrophils (%) (Auto) 83 % (31-73) Lymphocytes (%) (Auto) 10 % (24-48) Monocytes (%) (Auto) 7 % (0-9) Eosinophils (%) (Auto) 0 % (0-3) Basophils (%) (Auto) 0 % (0-3) Neutrophils # (Auto) 14.0 x10^3uL (1.8-7.7) Lymphocytes # (Auto) 1.8 x10^3/uL (1.0-4.8) Monocytes # (Auto) 1.1 x10^3/uL (0.0-1.1) Eosinophils # (Auto) 0.0 x10^3/uL (0.0-0.7) Basophils # (Auto) 0.0 x10^3/uL (0.0-0.2) Objective Assessment Leukocytosis - reactive plus s/p Dexamethasone 04/09 Gastric perf S/p Exploratory laparoscopy, exploratory laparotomy, subtotal gastrectomy with Juan Luis-en-Y reconstruction 04/09 Encephalopathy Substance abuse Plan Plan of Care Added Vanc/zosyn/Fluconazole given history of substance abuse in the past F/u labs/cults Thank you # [phone] JUDY PACHECO MD Apr 10, 2018 08:18
[2018-04-10] MEDS ORDERED: ALBUTEROL SULFATE 2.5 MG/3 ML NEBU. NEB SCH (10:00)
[2018-04-10] MEDS: PANTOPRAZOLE SODIUM IV DRIP 80 MG in IV NORMAL SALINE 100ML 100 ML IV SCH ×2 (10:52→21:18)
[2018-04-10] MEDS: VANCOMYCIN PER PHARMACY MC PRN (11:29)
--- NOTE | 2018-04-10 12:29 | PDOC ---
JON ROBLES PANEL BUILDER 04/10/18 1229: SURGICAL PROGRESS NOTE Subjective confused Vital Signs Vital Signs Date Time Temp Pulse Resp B/P (MAP) Pulse Ox O2 Delivery O2 Flow Rate FiO2 04/10/18 12:16 98.3 90 119/65 (83) Nasal Cannula 2.0 98.3 04/10/18 11:38 94 04/10/18 07:00 22 I&O Intake and Output 04/10/18 07:00 Intake Total 2658.70 ml Output Total 3000 ml Balance -341.30 ml Intake Oral 0 ml IV Total 2658.70 ml Output Urine Total 2960 ml Drainage Total 40 ml General: Cooperative, No acute distress Abdomen: Soft, Other (dressing dry, GLENYS serosang) Labs Laboratory Tests Test 04/09/18 07:10 04/09/18 07:21 04/09/18 07:22 04/09/18 07:45 White Blood Count 18.1 x10^3/uL (4.0-11.0) Red Blood Count 4.71 x10^6/uL (3.50-5.40) Hemoglobin 14.6 g/dL (12.0-15.5) Hematocrit 42.9 % (36.0-47.0) Mean Corpuscular Volume 91 fL (79-100) Mean Corpuscular Hemoglobin 31 pg (25-35) Mean Corpuscular Hemoglobin Concent 34 g/dL (31-37) Red Cell Distribution Width 13.2 % (11.5-14.5) Platelet Count 485 x10^3/uL (140-400) Neutrophils (%) (Auto) 74 % (31-73) Lymphocytes (%) (Auto) 18 % (24-48) Monocytes (%) (Auto) 6 % (0-9) Eosinophils (%) (Auto) 2 % (0-3) Basophils (%) (Auto) 1 % (0-3) Neutrophils # (Auto) 13.3 x10^3uL (1.8-7.7) Lymphocytes # (Auto) 3.2 x10^3/uL (1.0-4.8) Monocytes # (Auto) 1.2 x10^3/uL (0.0-1.1) Eosinophils # (Auto) 0.3 x10^3/uL (0.0-0.7) Basophils # (Auto) 0.2 x10^3/uL (0.0-0.2) Segmented Neutrophils % 61 % (35-66) Band Neutrophils % 3 % (0-9) Lymphocytes % 28 % (24-48) Monocytes % 6 % (0-10) Eosinophils % 2 % (0-5) Platelet Estimate Increased (ADEQUATE) Lactic Acid Level 1.5 mmol/L (0.4-2.0) Bedside Troponin I 0.00 ng/ml (<0.08) Bedside Hemoglobin 14.6 g/dL (12-15) Bedside Hematocrit 43 % (36-40) Bedside Sodium 143 mmol/L (135-145) Bedside Potassium 3.7 mmol/L (3.5-5.0) Bedside Chloride 102 mmol/L (98-110) Bedside Total CO2 31 mmol/L (23-32) Anion Gap 14 mmol/L (6-14) Bedside Blood Urea Nitrogen 27 mg/dL (8-26) Bedside Creatinine 1.2 mg/dL (0.5-1.4) Glucose Level 136 mg/dL (70-99) Bedside Ionized Calcium (Melba) 1.15 mmol/L (1.13-1.32) Urine Collection Type U cath Urine Color Yellow Urine Clarity Clear Urine pH 7.0 Urine Specific Imogene >=1.030 Urine Protein Negative mg/dL (NEG-TRACE) Urine Glucose (UA) Negative mg/dL (NEG) Urine Ketones (Stick) Negative mg/dL (NEG) Urine Blood Negative (NEG) Urine Nitrite Negative (NEG) Urine Bilirubin Negative (NEG) Urine Urobilinogen Dipstick 1.0 mg/dL (0.2 mg/dL) Urine Leukocyte Esterase Negative (NEG) Urine RBC 6-10 /HPF (0-2) Urine WBC 0 /HPF (0-4) Urine Squamous Epithelial Cells Few /LPF Urine Bacteria 0 /HPF (0-FEW) Urine Mucus Slight /LPF Urine Opiates Screen Pos (NEG) Urine Methadone Screen Neg (NEG) Urine Barbiturates Neg (NEG) Urine Phencyclidine Screen Neg (NEG) Urine Amphetamine/Methamphetamine Pos (NEG) Urine Benzodiazepines Screen Neg (NEG) Urine Cocaine Screen Neg (NEG) Urine Cannabinoids Screen Neg (NEG) Urine Ethyl Alcohol Neg (NEG) Test 04/09/18 08:00 04/09/18 18:10 04/10/18 06:30 Sodium Level 143 mmol/L (136-145) 141 mmol/L (136-145) Potassium Level 3.9 mmol/L (3.5-5.1) 4.0 mmol/L (3.5-5.1) Chloride Level 105 mmol/L (98-107) 109 mmol/L (98-107) Carbon Dioxide Level 28 mmol/L (21-32) 22 mmol/L (21-32) Anion Gap 10 (6-14) 10 (6-14) Blood Urea Nitrogen 27 mg/dL (7-20) 15 mg/dL (7-20) Creatinine 1.2 mg/dL (0.6-1.0) 1.0 mg/dL (0.6-1.0) Estimated GFR (Cockcroft-Gault) 47.0 58.0 BUN/Creatinine Ratio 23 (6-20) 15 (6-20) Glucose Level 152 mg/dL (70-99) 100 mg/dL (70-99) Calcium Level 9.2 mg/dL (8.5-10.1) 7.8 mg/dL (8.5-10.1) Total Bilirubin 0.2 mg/dL (0.2-1.0) 0.5 mg/dL (0.2-1.0) Aspartate Amino Transf (AST/SGOT) 18 U/L (15-37) 84 U/L (15-37) Alanine Aminotransferase (ALT/SGPT) 27 U/L (14-59) 97 U/L (14-59) Alkaline Phosphatase 121 U/L (46-116) 63 U/L (46-116) WP-[id number]-Type Natriuretic Peptide 67 pg/mL (0-124) Total Protein 7.4 g/dL (6.4-8.2) 5.7 g/dL (6.4-8.2) Albumin 3.8 g/dL (3.4-5.0) 2.6 g/dL (3.4-5.0) Albumin/Globulin Ratio 1.1 (1.0-1.7) 0.8 (1.0-1.7) Lipase 176 U/L (73-393) Lactic Acid Level 1.7 mmol/L (0.4-2.0) White Blood Count 17.0 x10^3/uL (4.0-11.0) Red Blood Count 3.44 x10^6/uL (3.50-5.40) Hemoglobin 10.9 g/dL (12.0-15.5) Hematocrit 31.9 % (36.0-47.0) Mean Corpuscular Volume 93 fL (79-100) Mean Corpuscular Hemoglobin 32 pg (25-35) Mean Corpuscular Hemoglobin Concent 34 g/dL (31-37) Red Cell Distribution Width 13.5 % (11.5-14.5) Platelet Count 300 x10^3/uL (140-400) Neutrophils (%) (Auto) 83 % (31-73) Lymphocytes (%) (Auto) 10 % (24-48) Monocytes (%) (Auto) 7 % (0-9) Eosinophils (%) (Auto) 0 % (0-3) Basophils (%) (Auto) 0 % (0-3) Neutrophils # (Auto) 14.0 x10^3uL (1.8-7.7) Lymphocytes # (Auto) 1.8 x10^3/uL (1.0-4.8) Monocytes # (Auto) 1.1 x10^3/uL (0.0-1.1) Eosinophils # (Auto) 0.0 x10^3/uL (0.0-0.7) Basophils # (Auto) 0.0 x10^3/uL (0.0-0.2) Laboratory Tests Test 04/09/18 18:10 04/10/18 06:30 Lactic Acid Level 1.7 mmol/L (0.4-2.0) White Blood Count 17.0 x10^3/uL (4.0-11.0) Red Blood Count 3.44 x10^6/uL (3.50-5.40) Hemoglobin 10.9 g/dL (12.0-15.5) Hematocrit 31.9 % (36.0-47.0) Mean Corpuscular Volume 93 fL (79-100) Mean Corpuscular Hemoglobin 32 pg (25-35) Mean Corpuscular Hemoglobin Concent 34 g/dL (31-37) Red Cell Distribution Width 13.5 % (11.5-14.5) Platelet Count 300 x10^3/uL (140-400) Neutrophils (%) (Auto) 83 % (31-73) Lymphocytes (%) (Auto) 10 % (24-48) Monocytes (%) (Auto) 7 % (0-9) Eosinophils (%) (Auto) 0 % (0-3) Basophils (%) (Auto) 0 % (0-3) Neutrophils # (Auto) 14.0 x10^3uL (1.8-7.7) Lymphocytes # (Auto) 1.8 x10^3/uL (1.0-4.8) Monocytes # (Auto) 1.1 x10^3/uL (0.0-1.1) Eosinophils # (Auto) 0.0 x10^3/uL (0.0-0.7) Basophils # (Auto) 0.0 x10^3/uL (0.0-0.2) Sodium Level 141 mmol/L (136-145) Potassium Level 4.0 mmol/L (3.5-5.1) Chloride Level 109 mmol/L (98-107) Carbon Dioxide Level 22 mmol/L (21-32) Anion Gap 10 (6-14) Blood Urea Nitrogen 15 mg/dL (7-20) Creatinine 1.0 mg/dL (0.6-1.0) Estimated GFR (Cockcroft-Gault) 58.0 BUN/Creatinine Ratio 15 (6-20) Glucose Level 100 mg/dL (70-99) Calcium Level 7.8 mg/dL (8.5-10.1) Total Bilirubin 0.5 mg/dL (0.2-1.0) Aspartate Amino Transf (AST/SGOT) 84 U/L (15-37) Alanine Aminotransferase (ALT/SGPT) 97 U/L (14-59) Alkaline Phosphatase 63 U/L (46-116) Total Protein 5.7 g/dL (6.4-8.2) Albumin 2.6 g/dL (3.4-5.0) Albumin/Globulin Ratio 0.8 (1.0-1.7) Assessment/Plan POD#1Exploratory laparoscopy, exploratory laparotomy, subtotal gastrectomy with Juan Luis-en-Y reconstruction continue PPI, abx bowel rest SUDHIR ORTEGA MD 04/12/18 1023: SURGICAL PROGRESS NOTE Problem List Agree with above JON ROBLES PANEL BUILDER Apr 10, 2018 12:29 SUDHIR ORTEGA MD Apr 12, 2018 10:23
[2018-04-10] MEDS ORDERED: ALBUTEROL SULFATE 2.5 MG/3 ML NEBU. NEB PRN (13:30)
--- NOTE | 2018-04-10 13:32 | PDOC ---
PROGRESS NOTES Chief Complaint Chief Complaint Gastric perf S/p Exploratory laparoscopy, exploratory laparotomy, subtotal gastrectomy with Juan Luis-en-Y reconstruction 04/09 toxic, metabolic Encephalopathy Substance abuse with Amph leukocytosis copd with smoking h/o CAD plan: fu with ID, SX no NGT, ON NC npo ivf protonix drip as per Sx on vanco and zosyn add duoneb, albuterol dvt ppx History of Present Illness History of Present Illness ROS: no fever, chills, sob or chest pain sedated with ativan, not arousable Vitals Vitals Vital Signs Date Time Temp Pulse Resp B/P (MAP) Pulse Ox O2 Delivery O2 Flow Rate FiO2 04/10/18 13:01 98.8 87 125/65 (85) Nasal Cannula 2.0 98.8 04/10/18 11:38 94 04/10/18 07:00 22 Physical Exam Physical Exam GLENYS sanguineous liquis General: No acute distress Heart: Regular rate, Normal S1, Normal S2 Lungs: Other (bl decreased bs with mild wheezing) Abdomen: Soft, Other (dressing dry, GLENYS serosang, no bs) Extremities: No cyanosis Skin: No rashes Labs LABS Laboratory Tests Test 04/09/18 18:10 04/10/18 06:30 Lactic Acid Level 1.7 mmol/L (0.4-2.0) White Blood Count 17.0 x10^3/uL (4.0-11.0) Red Blood Count 3.44 x10^6/uL (3.50-5.40) Hemoglobin 10.9 g/dL (12.0-15.5) Hematocrit 31.9 % (36.0-47.0) Mean Corpuscular Volume 93 fL (79-100) Mean Corpuscular Hemoglobin 32 pg (25-35) Mean Corpuscular Hemoglobin Concent 34 g/dL (31-37) Red Cell Distribution Width 13.5 % (11.5-14.5) Platelet Count 300 x10^3/uL (140-400) Neutrophils (%) (Auto) 83 % (31-73) Lymphocytes (%) (Auto) 10 % (24-48) Monocytes (%) (Auto) 7 % (0-9) Eosinophils (%) (Auto) 0 % (0-3) Basophils (%) (Auto) 0 % (0-3) Neutrophils # (Auto) 14.0 x10^3uL (1.8-7.7) Lymphocytes # (Auto) 1.8 x10^3/uL (1.0-4.8) Monocytes # (Auto) 1.1 x10^3/uL (0.0-1.1) Eosinophils # (Auto) 0.0 x10^3/uL (0.0-0.7) Basophils # (Auto) 0.0 x10^3/uL (0.0-0.2) Sodium Level 141 mmol/L (136-145) Potassium Level 4.0 mmol/L (3.5-5.1) Chloride Level 109 mmol/L (98-107) Carbon Dioxide Level 22 mmol/L (21-32) Anion Gap 10 (6-14) Blood Urea Nitrogen 15 mg/dL (7-20) Creatinine 1.0 mg/dL (0.6-1.0) Estimated GFR (Cockcroft-Gault) 58.0 BUN/Creatinine Ratio 15 (6-20) Glucose Level 100 mg/dL (70-99) Calcium Level 7.8 mg/dL (8.5-10.1) Total Bilirubin 0.5 mg/dL (0.2-1.0) Aspartate Amino Transf (AST/SGOT) 84 U/L (15-37) Alanine Aminotransferase (ALT/SGPT) 97 U/L (14-59) Alkaline Phosphatase 63 U/L (46-116) Total Protein 5.7 g/dL (6.4-8.2) Albumin 2.6 g/dL (3.4-5.0) Albumin/Globulin Ratio 0.8 (1.0-1.7) Comment Review of Relevant I have reviewed the following items dariel (where applicable) has been applied. Labs Laboratory Tests Test 04/09/18 07:10 04/09/18 07:21 04/09/18 07:22 04/09/18 07:45 White Blood Count 18.1 x10^3/uL (4.0-11.0) Red Blood Count 4.71 x10^6/uL (3.50-5.40) Hemoglobin 14.6 g/dL (12.0-15.5) Hematocrit 42.9 % (36.0-47.0) Mean Corpuscular Volume 91 fL (79-100) Mean Corpuscular Hemoglobin 31 pg (25-35) Mean Corpuscular Hemoglobin Concent 34 g/dL (31-37) Red Cell Distribution Width 13.2 % (11.5-14.5) Platelet Count 485 x10^3/uL (140-400) Neutrophils (%) (Auto) 74 % (31-73) Lymphocytes (%) (Auto) 18 % (24-48) Monocytes (%) (Auto) 6 % (0-9) Eosinophils (%) (Auto) 2 % (0-3) Basophils (%) (Auto) 1 % (0-3) Neutrophils # (Auto) 13.3 x10^3uL (1.8-7.7) Lymphocytes # (Auto) 3.2 x10^3/uL (1.0-4.8) Monocytes # (Auto) 1.2 x10^3/uL (0.0-1.1) Eosinophils # (Auto) 0.3 x10^3/uL (0.0-0.7) Basophils # (Auto) 0.2 x10^3/uL (0.0-0.2) Segmented Neutrophils % 61 % (35-66) Band Neutrophils % 3 % (0-9) Lymphocytes % 28 % (24-48) Monocytes % 6 % (0-10) Eosinophils % 2 % (0-5) Platelet Estimate Increased (ADEQUATE) Lactic Acid Level 1.5 mmol/L (0.4-2.0) Bedside Troponin I 0.00 ng/ml (<0.08) Bedside Hemoglobin 14.6 g/dL (12-15) Bedside Hematocrit 43 % (36-40) Bedside Sodium 143 mmol/L (135-145) Bedside Potassium 3.7 mmol/L (3.5-5.0) Bedside Chloride 102 mmol/L (98-110) Bedside Total CO2 31 mmol/L (23-32) Anion Gap 14 mmol/L (6-14) Bedside Blood Urea Nitrogen 27 mg/dL (8-26) Bedside Creatinine 1.2 mg/dL (0.5-1.4) Glucose Level 136 mg/dL (70-99) Bedside Ionized Calcium (Melba) 1.15 mmol/L (1.13-1.32) Urine Collection Type U cath Urine Color Yellow Urine Clarity Clear Urine pH 7.0 Urine Specific [place] >=1.030 Urine Protein Negative mg/dL (NEG-TRACE) Urine Glucose (UA) Negative mg/dL (NEG) Urine Ketones (Stick) Negative mg/dL (NEG) Urine Blood Negative (NEG) Urine Nitrite Negative (NEG) Urine Bilirubin Negative (NEG) Urine Urobilinogen Dipstick 1.0 mg/dL (0.2 mg/dL) Urine Leukocyte Esterase Negative (NEG) Urine RBC 6-10 /HPF (0-2) Urine WBC 0 /HPF (0-4) Urine Squamous Epithelial Cells Few /LPF Urine Bacteria 0 /HPF (0-FEW) Urine Mucus Slight /LPF Urine Opiates Screen Pos (NEG) Urine Methadone Screen Neg (NEG) Urine Barbiturates Neg (NEG) Urine Phencyclidine Screen Neg (NEG) Urine Amphetamine/Methamphetamine Pos (NEG) Urine Benzodiazepines Screen Neg (NEG) Urine Cocaine Screen Neg (NEG) Urine Cannabinoids Screen Neg (NEG) Urine Ethyl Alcohol Neg (NEG) Test 04/09/18 08:00 04/09/18 18:10 04/10/18 06:30 Sodium Level 143 mmol/L (136-145) 141 mmol/L (136-145) Potassium Level 3.9 mmol/L (3.5-5.1) 4.0 mmol/L (3.5-5.1) Chloride Level 105 mmol/L (98-107) 109 mmol/L (98-107) Carbon Dioxide Level 28 mmol/L (21-32) 22 mmol/L (21-32) Anion Gap 10 (6-14) 10 (6-14) Blood Urea Nitrogen 27 mg/dL (7-20) 15 mg/dL (7-20) Creatinine 1.2 mg/dL (0.6-1.0) 1.0 mg/dL (0.6-1.0) Estimated GFR (Cockcroft-Gault) 47.0 58.0 BUN/Creatinine Ratio 23 (6-20) 15 (6-20) Glucose Level 152 mg/dL (70-99) 100 mg/dL (70-99) Calcium Level 9.2 mg/dL (8.5-10.1) 7.8 mg/dL (8.5-10.1) Total Bilirubin 0.2 mg/dL (0.2-1.0) 0.5 mg/dL (0.2-1.0) Aspartate Amino Transf (AST/SGOT) 18 U/L (15-37) 84 U/L (15-37) Alanine Aminotransferase (ALT/SGPT) 27 U/L (14-59) 97 U/L (14-59) Alkaline Phosphatase 121 U/L (46-116) 63 U/L (46-116) SU-Rjz-[id number]-Type Natriuretic Peptide 67 pg/mL (0-124) Total Protein 7.4 g/dL (6.4-8.2) 5.7 g/dL (6.4-8.2) Albumin 3.8 g/dL (3.4-5.0) 2.6 g/dL (3.4-5.0) Albumin/Globulin Ratio 1.1 (1.0-1.7) 0.8 (1.0-1.7) Lipase 176 U/L (73-393) Lactic Acid Level 1.7 mmol/L (0.4-2.0) White Blood Count 17.0 x10^3/uL (4.0-11.0) Red Blood Count 3.44 x10^6/uL (3.50-5.40) Hemoglobin 10.9 g/dL (12.0-15.5) Hematocrit 31.9 % (36.0-47.0) Mean Corpuscular Volume 93 fL (79-100) Mean Corpuscular Hemoglobin 32 pg (25-35) Mean Corpuscular Hemoglobin Concent 34 g/dL (31-37) Red Cell Distribution Width 13.5 % (11.5-14.5) Platelet Count 300 x10^3/uL (140-400) Neutrophils (%) (Auto) 83 % (31-73) Lymphocytes (%) (Auto) 10 % (24-48) Monocytes (%) (Auto) 7 % (0-9) Eosinophils (%) (Auto) 0 % (0-3) Basophils (%) (Auto) 0 % (0-3) Neutrophils # (Auto) 14.0 x10^3uL (1.8-7.7) Lymphocytes # (Auto) 1.8 x10^3/uL (1.0-4.8) Monocytes # (Auto) 1.1 x10^3/uL (0.0-1.1) Eosinophils # (Auto) 0.0 x10^3/uL (0.0-0.7) Basophils # (Auto) 0.0 x10^3/uL (0.0-0.2) Laboratory Tests Test 04/09/18 18:10 04/10/18 06:30 Lactic Acid Level 1.7 mmol/L (0.4-2.0) White Blood Count 17.0 x10^3/uL (4.0-11.0) Red Blood Count 3.44 x10^6/uL (3.50-5.40) Hemoglobin 10.9 g/dL (12.0-15.5) Hematocrit 31.9 % (36.0-47.0) Mean Corpuscular Volume 93 fL (79-100) Mean Corpuscular Hemoglobin 32 pg (25-35) Mean Corpuscular Hemoglobin Concent 34 g/dL (31-37) Red Cell Distribution Width 13.5 % (11.5-14.5) Platelet Count 300 x10^3/uL (140-400) Neutrophils (%) (Auto) 83 % (31-73) Lymphocytes (%) (Auto) 10 % (24-48) Monocytes (%) (Auto) 7 % (0-9) Eosinophils (%) (Auto) 0 % (0-3) Basophils (%) (Auto) 0 % (0-3) Neutrophils # (Auto) 14.0 x10^3uL (1.8-7.7) Lymphocytes # (Auto) 1.8 x10^3/uL (1.0-4.8) Monocytes # (Auto) 1.1 x10^3/uL (0.0-1.1) Eosinophils # (Auto) 0.0 x10^3/uL (0.0-0.7) Basophils # (Auto) 0.0 x10^3/uL (0.0-0.2) Sodium Level 141 mmol/L (136-145) Potassium Level 4.0 mmol/L (3.5-5.1) Chloride Level 109 mmol/L (98-107) Carbon Dioxide Level 22 mmol/L (21-32) Anion Gap 10 (6-14) Blood Urea Nitrogen 15 mg/dL (7-20) Creatinine 1.0 mg/dL (0.6-1.0) Estimated GFR (Cockcroft-Gault) 58.0 BUN/Creatinine Ratio 15 (6-20) Glucose Level 100 mg/dL (70-99) Calcium Level 7.8 mg/dL (8.5-10.1) Total Bilirubin 0.5 mg/dL (0.2-1.0) Aspartate Amino Transf (AST/SGOT) 84 U/L (15-37) Alanine Aminotransferase (ALT/SGPT) 97 U/L (14-59) Alkaline Phosphatase 63 U/L (46-116) Total Protein 5.7 g/dL (6.4-8.2) Albumin 2.6 g/dL (3.4-5.0) Albumin/Globulin Ratio 0.8 (1.0-1.7) Medications Current Medications Sodium Chloride 1,000 ml @ 1,000 mls/hr 1X ONCE IV Last administered on at 07:36; Start 04/09/18 at 07:00; Stop 04/09/18 at 07:59; Status DC Ondansetron HCl (Zofran) 4 mg 1X ONCE IV Last administered on 04/09/18at 07:35; Start 04/09/18 at 07:00; Stop 04/09/18 at 07:02; Status DC Morphine Sulfate (Morphine Sulfate) 4 mg 1X ONCE IV Last administered on at 07:36; Start 04/09/18 at 07:00; Stop 04/09/18 at 07:03; Status DC Iohexol (Omnipaque 300 Mg/ml) 75 ml 1X ONCE IV Last administered on 04/09/18at 08:20; Start 04/09/18 at 07:15; Stop 04/09/18 at 07:16; Status DC Info (CONTRAST GIVEN -- Rx MONITORING) 1 each PRN DAILY PRN MC SEE COMMENTS; Start 04/09/18 at 07:15; Stop 04/11/18 at 07:14 Morphine Sulfate (Morphine Sulfate) 4 mg 1X ONCE IV ; Start 04/09/18 at 08:15; Stop 04/09/18 at 08:15; Status DC Morphine Sulfate (Morphine Sulfate) 6 mg 1X ONCE IV Last administered on at 08:10; Start 04/09/18 at 08:15; Stop 04/09/18 at 08:16; Status DC Lorazepam (Ativan) 1 mg 1X ONCE IV Last administered on 04/09/18at 08:41; Start 04/09/18 at 08:45; Stop 04/09/18 at 08:46; Status DC Piperacillin Sod/ Tazobactam Sod 3.375 gm/Sodium Chloride 50 ml @ 100 mls/hr 1X ONCE IV Last administered on 04/09/18at 08:54; Start 04/09/18 at 09:00; Stop 04/09/18 at 09:29; Status DC Sodium Chloride 1,000 ml @ 1,000 mls/hr 1X ONCE IV Last administered on at 08:45; Start 04/09/18 at 08:45; Stop 04/09/18 at 09:44; Status DC Propofol 20 ml @ As Directed STK-MED ONCE IV ; Start 04/09/18 at 08:53; Stop 04/09 at 08:54; Status DC Lidocaine HCl (Lidocaine Pf 2% Vial) 5 ml STK-MED ONCE .ROUTE ; Start 04/09/18 at 08:53; Stop 04/09/18 at 08:54; Status DC Dexamethasone Sodium Phosphate (Decadron) 20 mg STK-MED ONCE .ROUTE ; Start 04/09 at 08:53; Stop 04/09/18 at 08:54; Status DC Ondansetron HCl (Zofran) 4 mg STK-MED ONCE .ROUTE ; Start 04/09/18 at 08:53; Stop 04/09/18 at 08:54; Status DC Rocuronium [place] (Zemuron) 50 mg STK-MED ONCE .ROUTE ; Start 04/09/18 at 08:53 ; Stop 04/09/18 at 08:54; Status DC Midazolam HCl (Versed) 2 mg STK-MED ONCE .ROUTE ; Start 04/09/18 at 08:54; Stop 04/09/18 at 08:55; Status DC Fentanyl Citrate (Fentanyl 2ml Vial) 100 mcg STK-MED ONCE .ROUTE ; Start at 08:54; Stop 04/09/18 at 08:56; Status DC Ondansetron HCl (Zofran) 4 mg PRN Q8HRS PRN IV NAUSEA/VOMITING; Start 04/09/18 at 09:15; Stop 04/09/18 at 15:20; Status DC Morphine Sulfate (Morphine Sulfate) 4 mg PRN Q2HR PRN IV PAIN Last administered on 04/09/18at 19:45; Start 04/09/18 at 09:15; Stop 04/09/18 at 20:15; Status DC Ondansetron HCl (Zofran) 4 mg PRN Q6HRS PRN IV NAUSEA/VOMITING; Start 04/09/18 at 09:30; Stop 04/09/18 at 15:20; Status DC Fentanyl Citrate (Fentanyl 2ml Vial) 25 mcg PRN Q5MIN PRN IV MILD PAIN; Start 04/09/18 at 09:30; Stop 04/09/18 at 20:14; Status DC Fentanyl Citrate (Fentanyl 2ml Vial) 50 mcg PRN Q5MIN PRN IV MODERATE TO SEVERE PAIN Last administered on 04/09/18at 15:17; Start 04/09/18 at 09:30; Stop at 20:14; Status DC Morphine Sulfate (Morphine Sulfate) 1 mg PRN Q10MIN PRN IV SEVERE PAIN; Start 04/09/18 at 09:30; Stop 04/09/18 at 20:14; Status DC Ringer's Solution 1,000 ml @ 30 mls/hr Q24H IV ; Start 04/09/18 at 09:17; Stop 04/09/18 at 20:14; Status DC Lidocaine HCl (Xylocaine-Mpf 1% Vial) 2 ml PRN 1X PRN ID PRIOR TO IV START; Start 04/09/18 at 09:30; Stop 04/09/18 at 20:14; Status DC Prochlorperazine Edisylate (Compazine) 5 mg PACU PRN PRN IV NAUSEA, MRX1; Start 04/09/18 at 09:30; Stop 04/09/18 at 20:14; Status DC Bupivacaine HCl/ Epinephrine Bitart (Marcaine-Epi 0.25%-1:311013) 50 ml STK-MED ONCE .ROUTE ; Start 04/09/18 at 09:01; Stop 04/09/18 at 10:02; Status DC Albumin Human 500 ml @ As Directed STK-MED ONCE IV ; Start 04/09/18 at 10:23; Stop 04/09/18 at 10:24; Status DC Fentanyl Citrate (Fentanyl 2ml Vial) 100 mcg STK-MED ONCE .ROUTE ; Start at 11:00; Stop 04/09/18 at 11:01; Status DC Rocuronium [place] (Zemuron) 50 mg STK-MED ONCE .ROUTE ; Start 04/09/18 at 11:55 ; Stop 04/09/18 at 11:56; Status DC Neostigmine Methylsulfate (Neostigmine Methylsulfate) 5 mg STK-MED ONCE .ROUTE ; Start 04/09/18 at 13:26; Stop 04/09/18 at 13:27; Status DC Glycopyrrolate (Robinul) 1 mg STK-MED ONCE .ROUTE ; Start 04/09/18 at 13:26; Stop 04/09/18 at 13:27; Status DC Sevoflurane (Ultane) 90 ml STK-MED ONCE IH ; Start 04/09/18 at 13:53; Stop at 13:54; Status DC Morphine Sulfate (Morphine Sulfate) 10 mg STK-MED ONCE .ROUTE ; Start 04/09/18 at 14:57; Stop 04/09/18 at 14:58; Status DC Enoxaparin Sodium (Lovenox 40mg Syringe) 40 mg Q24H SQ ; Start 04/09/18 at 15:30 ; Status Cancel Sodium Chloride (Normal Saline Flush) 3 ml QSHIFT PRN IV AFTER MEDS AND BLOOD DRAWS; Start 04/09/18 at 15:00 Potassium Chloride/Sodium Chloride 1,000 ml @ 125 mls/hr Q8H IV Last administered on 04/10/18at 08:06; Start 04/09/18 at 14:54 Morphine Sulfate 30 ml @ 0 mls/hr CONT PRN PRN IV PER PROTOCOL; Start 04/09/18 at 15:00 Ondansetron HCl (Zofran) 4 mg PRN Q6HRS PRN IV NAUESA, 1ST CHOICE; Start at 15:00 Pantoprazole Sodium 80 mg/ Sodium Chloride 100 ml @ 10 mls/hr Q10H IV Last administered on 04/10/18at 10:52; Start 04/09/18 at 15:00 Enoxaparin Sodium (Lovenox 40mg Syringe) 40 mg Q24H SQ Last administered on 04/10at 05:58; Start 04/10/18 at 05:00 Lorazepam (Ativan) 2 mg PRN Q6HRS PRN IV ANXIETY / AGITATION Last administered on 04/10/18at 05:54; Start 04/09/18 at 16:15; Stop 04/10/18 at 09:45; Status DC Vancomycin HCl (Vanco Per Pharmacy) 1 each PRN DAILY PRN MC SEE COMMENTS Last administered on 04/10/18at 11:29; Start 04/09/18 at 18:30 Piperacillin Sod/ Tazobactam Sod (Zosyn Per Pharmacy) 1 each PRN DAILY PRN MC SEE COMMENTS; Start 04/09/18 at 18:30 Fluconazole/ Sodium Chloride 200 ml @ 100 mls/hr Q24H IV Last administered on 04/09/18at 19:56; Start 04/09/18 at 19:00 Vancomycin HCl 1.75 gm/Sodium Chloride 500 ml @ 250 mls/hr 1X ONCE IV Last administered on 04/09/18at 19:56; Start 04/09/18 at 19:00; Stop 04/09/18 at 20:59; Status DC Piperacillin Sod/ Tazobactam Sod 3.375 gm/Sodium Chloride 50 ml @ 100 mls/hr Q6HRS IV Last administered on 04/10/18at 10:53; Start 04/09/18 at 18:30 Morphine Sulfate (Morphine Sulfate) 2 mg PRN Q3HRS PRN IV PAIN; Start 04/09/18 at 18:45 Morphine Sulfate (Morphine Sulfate) 4 mg PRN Q3HRS PRN IV PAIN Last administered on 04/10/18at 11:12; Start 04/09/18 at 18:45 Morphine Sulfate (Morphine Sulfate) 5 mg PRN Q3HRS PRN IV SEVERE PAIN; Start at 18:45 Vancomycin HCl 1 gm/Sodium Chloride 250 ml @ 250 mls/hr Q24H IV ; Start at 20:00 Vancomycin HCl (Vancomycin Trough Level) 1 each 1X ONCE MC ; Start 04/11/18 at 19:30; Stop 04/11/18 at 19:31 Haloperidol Lactate (Haldol Inj) 5 mg 1X ONCE IVP Last administered on at 20:44; Start 04/09/18 at 20:45; Stop 04/09/18 at 20:46; Status DC Diphenhydramine HCl (Benadryl) 25 mg 1X ONCE IVP Last administered on at 22:47; Start 04/09/18 at 20:45; Stop 04/09/18 at 20:46; Status DC Albuterol Sulfate (Ventolin Neb Soln) 2.5 mg RTQID NEB Last administered on 04/10at 11:36; Start 04/10/18 at 10:00 Lorazepam (Ativan) 2 mg PRN Q4HRS PRN IV ANXIETY / AGITATION Last administered on 04/10/18at 09:56; Start 04/10/18 at 09:45 Vitals/I & O Vital Sign - Last 24 Hours 04/09/18 04/09/18 04/09/18 04/09/18 14:45 15:00 15:15 15:17 Temp 99.1 99.1 Pulse 77 82 78 Resp 12 B/P (MAP) 115/82 (93) 115/82 (93) 109/57 (74) Pulse Ox 99 99 99 91 O2 Delivery Nasal Cannula Nasal Cannula Nasal Cannula Simple Mask O2 Flow Rate 2.0 2.0 2.0 04/09/18 04/09/18 04/09/18 04/09/18 15:30 15:45 15:47 16:00 Pulse 86 92 B/P (MAP) 121/71 (88) 138/71 (93) Pulse Ox 99 99 91 O2 Delivery Nasal Cannula Nasal Cannula Room Air Nasal Cannula O2 Flow Rate 2.0 2.0 2.0 04/09/18 04/09/18 04/09/18 04/09/18 16:00 16:30 17:00 17:30 Temp 97.3 97.3 Pulse 86 84 80 77 B/P (MAP) 138/78 (98) 136/67 (90) 149/76 (100) 130/65 (86) Pulse Ox 99 99 99 99 O2 Delivery Nasal Cannula Nasal Cannula Nasal Cannula Nasal Cannula O2 Flow Rate 2.0 2.0 2.0 2.0 04/09/18 04/09/18 04/09/18 04/09/18 18:00 19:00 19:45 20:00 Temp 97.7 97.7 Pulse 87 86 92 Resp 18 B/P (MAP) 156/86 (109) 133/79 (97) 148/91 (110) Pulse Ox 99 96 99 96 O2 Delivery Nasal Cannula Nasal Cannula Nasal Cannula Nasal Cannula O2 Flow Rate 2.0 2.0 2.0 2.0 04/09/18 04/09/18 04/09/18 04/09/18 20:00 20:15 21:00 22:00 Pulse 85 100 Resp 24 B/P (MAP) 116/68 (84) 135/73 (93) Pulse Ox 95 99 100 O2 Delivery Nasal Cannula Nasal Cannula Nasal Cannula Nasal Cannula O2 Flow Rate 2.0 2.0 2.0 2.0 04/09/18 04/10/18 04/10/18 04/10/18 23:00 00:00 00:00 00:05 Temp 97.9 97.9 Pulse 82 78 Resp 16 18 B/P (MAP) 137/78 (97) 120/68 (85) Pulse Ox 99 99 99 O2 Delivery Nasal Cannula Nasal Cannula Nasal Cannula Nasal Cannula O2 Flow Rate 2.0 2.0 2.0 2.0 04/10/18 04/10/18 04/10/18 04/10/18 01:05 02:00 03:02 03:32 Pulse 86 80 82 Resp 18 18 16 18 B/P (MAP) 113/66 (82) 110/66 (81) 120/66 (84) Pulse Ox 98 97 98 98 O2 Delivery Nasal Cannula Nasal Cannula Nasal Cannula Nasal Cannula O2 Flow Rate 2.0 2.0 2.0 2.0 04/10/18 04/10/18 04/10/18 04/10/18 04:00 04:00 04:02 05:00 Temp 97.9 97.9 Pulse 87 79 Resp 18 18 18 B/P (MAP) 97/64 (75) 115/65 (82) Pulse Ox 96 96 96 O2 Delivery Nasal Cannula Nasal Cannula Nasal Cannula O2 Flow Rate 2.0 2.0 2.0 04/10/18 04/10/18 04/10/18 04/10/18 06:00 07:00 08:00 08:00 Temp 99.4 98.7 99.4 98.7 Pulse 86 90 85 Resp 16 22 B/P (MAP) 99/58 (72) 107/59 (75) 112/60 (77) Pulse Ox 96 95 O2 Delivery Nasal Cannula Nasal Cannula Nasal Cannula Nasal Cannula O2 Flow Rate 2.0 2.0 2.0 2.0 04/10/18 04/10/18 04/10/18 04/10/18 08:05 08:35 09:04 10:09 Temp 98.8 97.8 98.8 97.8 Pulse 98 86 B/P (MAP) 95/58 (70) 107/74 (85) O2 Delivery Nasal Cannula Nasal Cannula Nasal Cannula O2 Flow Rate 2.0 2.0 2.0 2.0 04/10/18 04/10/18 04/10/18 04/10/18 11:03 11:12 11:38 11:44 Temp 98.5 98.5 Pulse 93 B/P (MAP) 116/68 (84) Pulse Ox 94 O2 Delivery Nasal Cannula Nasal Cannula Room Air Room Air O2 Flow Rate 2.0 2.0 04/10/18 04/10/18 04/10/18 12:05 12:16 13:01 Temp 98.3 98.8 98.3 98.8 Pulse 90 87 B/P (MAP) 119/65 (83) 125/65 (85) O2 Delivery Nasal Cannula Nasal Cannula Nasal Cannula O2 Flow Rate 2.0 2.0 2.0 Intake and Output 04/09/18 04/09/18 04/10/18 15:00 23:00 07:00 Intake Total 1000 ml 0 ml 1658.70 ml Output Total 1635 ml 1365 ml Balance 1000 ml -1635 ml 293.70 ml AUGUSTINE MADRID MD Apr 10, 2018 13:32
[2018-04-10] MEDS: IPRATRPIUM/ALBUTEROL 0.5/2.5MG 3 ML NEBU. NEB SCH ×2 (15:52→19:39)
--- NOTE | 2018-04-10 16:29 | CONS ---
DATE OF CONSULTATION: 04/10/2018 ROOM: 114. REQUESTING PHYSICIAN: Dr. Chao. REASON FOR CONSULTATION: Perforated stomach. HISTORY OF PRESENT ILLNESS: The patient is a 52-year-old female, currently is encephalopathic. She did not provide any past medical history, history of present illness, review of systems, obtained mainly from the chart. According to Emergency Room note, she presented to [facility] on the 8th with epigastric pain that started fairly suddenly in the upper abdomen. She had a bowel movement, which was normal. No chest pain, shortness of air. She has a history of previous report of myocardial infarction and a cholecystectomy as well as substance abuse with positive drug screen here for amphetamines and methamphetamines. She subsequently underwent a CT scan, which showed free air, possible gastric source. She was then taken to the operating room by Dr. Duran, underwent exploratory laparotomy, subtotal gastrectomy and Juan Luis-en-Y reconstruction secondary to gastric perforation. I was consulted postoperatively and instituted vancomycin, Zosyn and fluconazole given her history of substance abuse. Perioperatively, she did receive some dexamethasone. Currently, the patient is agitated, moving about the bed, not answering any questions. PAST MEDICAL HISTORY: Positive for coronary artery disease, questionable myocardial infarction, tobacco abuse, substance abuse. PAST SURGICAL HISTORY: Positive for laparoscopic cholecystectomy and hysterectomy and now the above-mentioned procedure. REVIEW OF SYSTEMS: Unobtainable. ALLERGIES: No known drug allergies. SOCIAL HISTORY: She is positive for tobacco as well as a substance abuse. FAMILY HISTORY: Unknown. CURRENT MEDICATIONS: Include Fluconazole, Zosyn, vancomycin, dexamethasone x 1 prior to procedure, Lovenox, Haldol and p.r.n. medications. PHYSICAL EXAMINATION: VITAL SIGNS: Temperature currently is 99.4, pulse 90, respirations 22, blood pressure 107/59, satting 95% on 2 liters of nasal cannula oxygen. CONSTITUTIONAL: Apparently, she is again lying in bed, but she is moving around. HEENT: Her pupils are equal and reactive. Normal conjunctivae. Oral cavity, pharynx was dry. She has nasal cannula in place. NECK: Supple, no JVD. LUNGS: Decreased in the bases. HEART: S1, S2. ABDOMEN: Has a binder in place. Under the binder, she has a surgical dressing with a GLENYS in place. Abdomen is mildly distended with decreased, but some positive bowel sounds. EXTREMITIES: No clubbing, cyanosis or gross edema. SKIN: Warm to touch without generalized signs of rash. NEUROLOGIC: She is agitated and confused. LABORATORY DATA: White count 17, hemoglobin 10.9, platelets of 300, neutrophils 83, lymphs are 10. Glucose 100, AST 84, ALT 97. Lactic acid was 1.7, creatinine of 1. Chest x-ray from the 8th no acute infiltrates. IMPRESSION: 1. Leukocytosis, in part reactive, plus status post dexamethasone on the 8th. 2. Gastric perforation. 3. Exploratory laparoscopy and exploratory laparotomy, subtotal gastrectomy with Juan Luis-en-Y reconstruction on the 8th. 4. Encephalopathy. 5. Substance abuse. RECOMMENDATIONS: Again, I added vancomycin, Zosyn, fluconazole given her history of substance abuse in the past. Concern for potential pseudomonas and/or MRSA exposure. We will follow up on labs and cultures. Thank you for the opportunity to participate in the patient's care. If your have any questions, please do not hesitate to contact me. JUDY PACHECO MD DR: [email or web address] JOB#: [id number] / [id number]
[2018-04-10] MEDS: NICOTINE 21MG PATCH. TD SCH (16:50)
[2018-04-10] MEDS: FLUCONAZOLE 400MG/200ML PREMIX 200 ML IV SCH (17:55)
[2018-04-10] MEDS ORDERED: VANCOMYCIN 1 GM in IV NORMAL SALINE 250ML 250 ML IV SCH (20:00)
[2018-04-10] MEDS: HALOPERIDOL LACTATE 5 MG/ML VIAL. IVP PRN (22:32)
[2018-04-10] MEDS: MORPHINE SULFATE 10 MG/ML VIAL. IV PRN (23:35)
[2018-04-11] VITALS (7 sets, daily range): BP systolic 96–120; BP diastolic 63–87
[2018-04-11] MEDS: PIPERACILLIN/TAZOBACTAM 3.375 GM in IV NORMAL SALINE 50ML 50 ML IV SCH ×5 (00:15→23:56)
[2018-04-11] MEDS: MORPHINE SULFATE 10 MG/ML VIAL. IV PRN ×2 (03:09→06:39)
[2018-04-11 05:13] LABS: BASO % 0 % (0-3); EOS # 0.2 x10^3/uL (0.0-0.7); EOS % 1 % (0-3); HEMATOCRIT 31.7 % (36.0-47.0); HEMOGLOBIN 10.8 g/dL (12.0-15.5); LYMPH # 1.9 x10^3/uL (1.0-4.8); LYMPH % 12 % (24-48); MEAN CORPUSCULAR HEMOGLOBIN 31 pg (25-35); MEAN CORPUSCULAR HGB CONC 34 g/dL (31-37); MEAN CORPUSCULAR VOLUME 93 fL (79-100); MONO # 1.1 x10^3/uL (0.0-1.1); MONO % 7 % (0-9); NEUT # 12.7 x10^3uL (1.8-7.7); NEUT % 80 % (31-73); PLATELET COUNT 280 x10^3/uL (140-400); RED BLOOD COUNT 3.43 x10^6/uL (3.50-5.40); RED CELL DISTRIBUTION WIDTH 13.5 % (11.5-14.5)
[2018-04-11] MEDS: ENOXAPARIN 40 MG/0.4 ML SYRINGE. SQ SCH (05:13)
[2018-04-11 05:39] LABS: CALCIUM 8.2 mg/dL (8.5-10.1); POTASSIUM 3.9 mmol/L (3.5-5.1)
[2018-04-11] MEDS: POTASSIUM CL 20MEQ-0.45% NACL 1,000 ML IV SCH ×2 (06:48→07:09)
--- NOTE | 2018-04-11 08:11 | PDOC ---
Infectious Disease Note Subjective Subjective non verbal s/p meds ROS ROS unobtainable Vital Sign Vital Signs Vital Signs Date Time Temp Pulse Resp B/P (MAP) Pulse Ox O2 Delivery O2 Flow Rate FiO2 04/11/18 07:52 16 96 Nasal Cannula 3.0 04/11/18 07:00 99.8 106 96/65 (75) 99.8 Physical Exam PHYSICAL EXAM CONSTITUTIONAL: NAD, appears comfortable. Non verbal HEENT: Her pupils are equal and reactive. Normal conjunctivae. Oral cavity, pharynx clear. She has nasal cannula in place. NECK: Supple, no JVD. LUNGS: Decreased in the bases. HEART: S1, S2. ABDOMEN: Has a binder in place. Under the binder, she has a surgical dressing with a GLENYS in place with serous tinged fluid. Abdomen is softer with decreased bowel sounds. EXTREMITIES: No clubbing, cyanosis or gross edema. SKIN: Warm to touch without generalized signs of rash. NEUROLOGIC: She is non responsive s/p meds Labs Lab Laboratory Tests Test 04/11/18 04:30 White Blood Count 16.0 x10^3/uL (4.0-11.0) Red Blood Count 3.43 x10^6/uL (3.50-5.40) Hemoglobin 10.8 g/dL (12.0-15.5) Hematocrit 31.7 % (36.0-47.0) Mean Corpuscular Volume 93 fL (79-100) Mean Corpuscular Hemoglobin 31 pg (25-35) Mean Corpuscular Hemoglobin Concent 34 g/dL (31-37) Red Cell Distribution Width 13.5 % (11.5-14.5) Platelet Count 280 x10^3/uL (140-400) Neutrophils (%) (Auto) 80 % (31-73) Lymphocytes (%) (Auto) 12 % (24-48) Monocytes (%) (Auto) 7 % (0-9) Eosinophils (%) (Auto) 1 % (0-3) Basophils (%) (Auto) 0 % (0-3) Neutrophils # (Auto) 12.7 x10^3uL (1.8-7.7) Lymphocytes # (Auto) 1.9 x10^3/uL (1.0-4.8) Monocytes # (Auto) 1.1 x10^3/uL (0.0-1.1) Eosinophils # (Auto) 0.2 x10^3/uL (0.0-0.7) Basophils # (Auto) 0.0 x10^3/uL (0.0-0.2) Sodium Level 136 mmol/L (136-145) Potassium Level 3.9 mmol/L (3.5-5.1) Chloride Level 104 mmol/L (98-107) Carbon Dioxide Level 24 mmol/L (21-32) Anion Gap 8 (6-14) Blood Urea Nitrogen 11 mg/dL (7-20) Creatinine 1.0 mg/dL (0.6-1.0) Estimated GFR (Cockcroft-Gault) 58.0 Glucose Level 75 mg/dL (70-99) Calcium Level 8.2 mg/dL (8.5-10.1) Objective Assessment Fever - ? Post op vs med vs ? withdrawl vs ID but abd improved and Chest clear Leukocytosis - improved reactive plus s/p Dexamethasone 04/09 Gastric perf Mild transaminitis S/p Exploratory laparoscopy, exploratory laparotomy, subtotal gastrectomy with Juan Luis-en-Y reconstruction 04/09 Encephalopathy - now medicated Substance abuse Plan Plan of Care D/c Vanc Begin Zyvox Blood cults times 2 Cont zosyn/Fluconazole F/u labs/cults D/w JUDY MEAD MD Apr 11, 2018 08:11
[2018-04-11] MEDS: HALOPERIDOL LACTATE 5 MG/ML VIAL. IVP PRN (08:43)
[2018-04-11] MEDS: PANTOPRAZOLE SODIUM IV DRIP 80 MG in IV NORMAL SALINE 100ML 100 ML IV SCH ×2 (08:43→17:13)
[2018-04-11] MEDS: IPRATRPIUM/ALBUTEROL 0.5/2.5MG 3 ML NEBU. NEB SCH ×4 (08:47→19:57)
--- NOTE | 2018-04-11 09:36 | PDOC ---
SURGICAL PROGRESS NOTE Subjective Sommulent, not easily aroused Vital Signs Vital Signs Date Time Temp Pulse Resp B/P (MAP) Pulse Ox O2 Delivery O2 Flow Rate FiO2 04/11/18 08:49 96 Nasal Cannula 2.0 04/11/18 07:52 16 04/11/18 07:00 99.8 106 96/65 (75) 99.8 I&O Intake and Output 04/11/18 07:00 Intake Total 2450 ml Output Total 5226 ml Balance -2776 ml IV Total 2450 ml Output Urine Total 4881 ml Drainage Total 345 ml PATIENT HAS A ALCOCER: Yes General: mild distress Abdomen: Soft, Other (hypoactive bs mild incisional TTP GLENYS) Labs Laboratory Tests Test 04/09/18 18:10 04/09/18 19:00 04/10/18 06:30 04/11/18 04:30 Lactic Acid Level 1.7 mmol/L (0.4-2.0) Nasal Screen MRSA (PCR) Negative (Negative) White Blood Count 17.0 x10^3/uL (4.0-11.0) 16.0 x10^3/uL (4.0-11.0) Red Blood Count 3.44 x10^6/uL (3.50-5.40) 3.43 x10^6/uL (3.50-5.40) Hemoglobin 10.9 g/dL (12.0-15.5) 10.8 g/dL (12.0-15.5) Hematocrit 31.9 % (36.0-47.0) 31.7 % (36.0-47.0) Mean Corpuscular Volume 93 fL (79-100) 93 fL (79-100) Mean Corpuscular Hemoglobin 32 pg (25-35) 31 pg (25-35) Mean Corpuscular Hemoglobin Concent 34 g/dL (31-37) 34 g/dL (31-37) Red Cell Distribution Width 13.5 % (11.5-14.5) 13.5 % (11.5-14.5) Platelet Count 300 x10^3/uL (140-400) 280 x10^3/uL (140-400) Neutrophils (%) (Auto) 83 % (31-73) 80 % (31-73) Lymphocytes (%) (Auto) 10 % (24-48) 12 % (24-48) Monocytes (%) (Auto) 7 % (0-9) 7 % (0-9) Eosinophils (%) (Auto) 0 % (0-3) 1 % (0-3) Basophils (%) (Auto) 0 % (0-3) 0 % (0-3) Neutrophils # (Auto) 14.0 x10^3uL (1.8-7.7) 12.7 x10^3uL (1.8-7.7) Lymphocytes # (Auto) 1.8 x10^3/uL (1.0-4.8) 1.9 x10^3/uL (1.0-4.8) Monocytes # (Auto) 1.1 x10^3/uL (0.0-1.1) 1.1 x10^3/uL (0.0-1.1) Eosinophils # (Auto) 0.0 x10^3/uL (0.0-0.7) 0.2 x10^3/uL (0.0-0.7) Basophils # (Auto) 0.0 x10^3/uL (0.0-0.2) 0.0 x10^3/uL (0.0-0.2) Sodium Level 141 mmol/L (136-145) 136 mmol/L (136-145) Potassium Level 4.0 mmol/L (3.5-5.1) 3.9 mmol/L (3.5-5.1) Chloride Level 109 mmol/L (98-107) 104 mmol/L (98-107) Carbon Dioxide Level 22 mmol/L (21-32) 24 mmol/L (21-32) Anion Gap 10 (6-14) 8 (6-14) Blood Urea Nitrogen 15 mg/dL (7-20) 11 mg/dL (7-20) Creatinine 1.0 mg/dL (0.6-1.0) 1.0 mg/dL (0.6-1.0) Estimated GFR (Cockcroft-Gault) 58.0 58.0 BUN/Creatinine Ratio 15 (6-20) Glucose Level 100 mg/dL (70-99) 75 mg/dL (70-99) Calcium Level 7.8 mg/dL (8.5-10.1) 8.2 mg/dL (8.5-10.1) Total Bilirubin 0.5 mg/dL (0.2-1.0) Aspartate Amino Transf (AST/SGOT) 84 U/L (15-37) Alanine Aminotransferase (ALT/SGPT) 97 U/L (14-59) Alkaline Phosphatase 63 U/L (46-116) Total Protein 5.7 g/dL (6.4-8.2) Albumin 2.6 g/dL (3.4-5.0) Albumin/Globulin Ratio 0.8 (1.0-1.7) Laboratory Tests Test 04/11/18 04:30 White Blood Count 16.0 x10^3/uL (4.0-11.0) Red Blood Count 3.43 x10^6/uL (3.50-5.40) Hemoglobin 10.8 g/dL (12.0-15.5) Hematocrit 31.7 % (36.0-47.0) Mean Corpuscular Volume 93 fL (79-100) Mean Corpuscular Hemoglobin 31 pg (25-35) Mean Corpuscular Hemoglobin Concent 34 g/dL (31-37) Red Cell Distribution Width 13.5 % (11.5-14.5) Platelet Count 280 x10^3/uL (140-400) Neutrophils (%) (Auto) 80 % (31-73) Lymphocytes (%) (Auto) 12 % (24-48) Monocytes (%) (Auto) 7 % (0-9) Eosinophils (%) (Auto) 1 % (0-3) Basophils (%) (Auto) 0 % (0-3) Neutrophils # (Auto) 12.7 x10^3uL (1.8-7.7) Lymphocytes # (Auto) 1.9 x10^3/uL (1.0-4.8) Monocytes # (Auto) 1.1 x10^3/uL (0.0-1.1) Eosinophils # (Auto) 0.2 x10^3/uL (0.0-0.7) Basophils # (Auto) 0.0 x10^3/uL (0.0-0.2) Sodium Level 136 mmol/L (136-145) Potassium Level 3.9 mmol/L (3.5-5.1) Chloride Level 104 mmol/L (98-107) Carbon Dioxide Level 24 mmol/L (21-32) Anion Gap 8 (6-14) Blood Urea Nitrogen 11 mg/dL (7-20) Creatinine 1.0 mg/dL (0.6-1.0) Estimated GFR (Cockcroft-Gault) 58.0 Glucose Level 75 mg/dL (70-99) Calcium Level 8.2 mg/dL (8.5-10.1) Assessment/Plan POD #2 partial gastrictomy due to perf ulcer Stable has issues with drug abuse Awaiting return of bowel function DAXA STEINER MD Apr 11, 2018 09:36
[2018-04-11] MEDS: IV NORMAL SALINE 1000ML BAG 1,000 ML IV SCH (09:44)
[2018-04-11] MEDS: NICOTINE 21MG PATCH. TD SCH (09:46)
[2018-04-11] MEDS: AMINO AC 3%/ELECTROLYTE/GLYCER 1,000 ML IV SCH ×2 (09:48→21:58)
--- NOTE | 2018-04-11 12:40 | PDOC ---
PROGRESS NOTES Chief Complaint Chief Complaint Gastric perf S/p Exploratory laparoscopy, exploratory laparotomy, subtotal gastrectomy with Juan Luis-en-Y reconstruction 04/09 toxic, metabolic Encephalopathy Substance abuse with Amph leukocytosis copd with smoking h/o CAD plan: fu with ID, SX no NGT, ON NC npo ivf change to PPN, + NS protonix drip as per Sx on zosyn as per ID, vanco dced add duoneb, albuterol dvt ppx decrease ativan and haldol. History of Present Illness History of Present Illness ROS: no chills, sob or chest pain sedated with ativan and haldol, not arousable fever 100.7 no BM post op [id number] GLENYS drain yesterday Vitals Vitals Vital Signs Date Time Temp Pulse Resp B/P (MAP) Pulse Ox O2 Delivery O2 Flow Rate FiO2 04/11/18 11:34 98 Nasal Cannula 2.0 04/11/18 11:30 99.1 94 117/63 (81) 99.1 04/11/18 07:52 16 Physical Exam Physical Exam CONSTITUTIONAL: appears comfortable. Non verbal. deep sleep HEENT: Her pupils are equal and reactive. Normal conjunctivae. Oral cavity, pharynx clear. She has nasal cannula in place. NECK: Supple, no JVD. LUNGS: Decreased in the bases. HEART: S1, S2. ABDOMEN: Has a binder in place. Under the binder, she has a surgical dressing with a GLENYS in place with serous tinged fluid. Abdomen is softer without bowel sounds. EXTREMITIES: No clubbing, cyanosis or gross edema. SKIN: Warm to touch without generalized signs of rash. NEUROLOGIC: She is non responsive s/p meds General: mild distress Heart: Regular rate, Normal S1, Normal S2 Lungs: Other (bl decreased bs ) Abdomen: Soft, Other (hypoactive bs mild incisional TTP GLENYS) Extremities: No cyanosis Skin: No rashes Labs LABS Laboratory Tests Test 04/11/18 04:30 White Blood Count 16.0 x10^3/uL (4.0-11.0) Red Blood Count 3.43 x10^6/uL (3.50-5.40) Hemoglobin 10.8 g/dL (12.0-15.5) Hematocrit 31.7 % (36.0-47.0) Mean Corpuscular Volume 93 fL (79-100) Mean Corpuscular Hemoglobin 31 pg (25-35) Mean Corpuscular Hemoglobin Concent 34 g/dL (31-37) Red Cell Distribution Width 13.5 % (11.5-14.5) Platelet Count 280 x10^3/uL (140-400) Neutrophils (%) (Auto) 80 % (31-73) Lymphocytes (%) (Auto) 12 % (24-48) Monocytes (%) (Auto) 7 % (0-9) Eosinophils (%) (Auto) 1 % (0-3) Basophils (%) (Auto) 0 % (0-3) Neutrophils # (Auto) 12.7 x10^3uL (1.8-7.7) Lymphocytes # (Auto) 1.9 x10^3/uL (1.0-4.8) Monocytes # (Auto) 1.1 x10^3/uL (0.0-1.1) Eosinophils # (Auto) 0.2 x10^3/uL (0.0-0.7) Basophils # (Auto) 0.0 x10^3/uL (0.0-0.2) Sodium Level 136 mmol/L (136-145) Potassium Level 3.9 mmol/L (3.5-5.1) Chloride Level 104 mmol/L (98-107) Carbon Dioxide Level 24 mmol/L (21-32) Anion Gap 8 (6-14) Blood Urea Nitrogen 11 mg/dL (7-20) Creatinine 1.0 mg/dL (0.6-1.0) Estimated GFR (Cockcroft-Gault) 58.0 Glucose Level 75 mg/dL (70-99) Calcium Level 8.2 mg/dL (8.5-10.1) Comment Review of Relevant I have reviewed the following items dariel (where applicable) has been applied. Labs Laboratory Tests Test 04/09/18 18:10 04/09/18 19:00 04/10/18 06:30 04/11/18 04:30 Lactic Acid Level 1.7 mmol/L (0.4-2.0) Nasal Screen MRSA (PCR) Negative (Negative) White Blood Count 17.0 x10^3/uL (4.0-11.0) 16.0 x10^3/uL (4.0-11.0) Red Blood Count 3.44 x10^6/uL (3.50-5.40) 3.43 x10^6/uL (3.50-5.40) Hemoglobin 10.9 g/dL (12.0-15.5) 10.8 g/dL (12.0-15.5) Hematocrit 31.9 % (36.0-47.0) 31.7 % (36.0-47.0) Mean Corpuscular Volume 93 fL (79-100) 93 fL (79-100) Mean Corpuscular Hemoglobin 32 pg (25-35) 31 pg (25-35) Mean Corpuscular Hemoglobin Concent 34 g/dL (31-37) 34 g/dL (31-37) Red Cell Distribution Width 13.5 % (11.5-14.5) 13.5 % (11.5-14.5) Platelet Count 300 x10^3/uL (140-400) 280 x10^3/uL (140-400) Neutrophils (%) (Auto) 83 % (31-73) 80 % (31-73) Lymphocytes (%) (Auto) 10 % (24-48) 12 % (24-48) Monocytes (%) (Auto) 7 % (0-9) 7 % (0-9) Eosinophils (%) (Auto) 0 % (0-3) 1 % (0-3) Basophils (%) (Auto) 0 % (0-3) 0 % (0-3) Neutrophils # (Auto) 14.0 x10^3uL (1.8-7.7) 12.7 x10^3uL (1.8-7.7) Lymphocytes # (Auto) 1.8 x10^3/uL (1.0-4.8) 1.9 x10^3/uL (1.0-4.8) Monocytes # (Auto) 1.1 x10^3/uL (0.0-1.1) 1.1 x10^3/uL (0.0-1.1) Eosinophils # (Auto) 0.0 x10^3/uL (0.0-0.7) 0.2 x10^3/uL (0.0-0.7) Basophils # (Auto) 0.0 x10^3/uL (0.0-0.2) 0.0 x10^3/uL (0.0-0.2) Sodium Level 141 mmol/L (136-145) 136 mmol/L (136-145) Potassium Level 4.0 mmol/L (3.5-5.1) 3.9 mmol/L (3.5-5.1) Chloride Level 109 mmol/L (98-107) 104 mmol/L (98-107) Carbon Dioxide Level 22 mmol/L (21-32) 24 mmol/L (21-32) Anion Gap 10 (6-14) 8 (6-14) Blood Urea Nitrogen 15 mg/dL (7-20) 11 mg/dL (7-20) Creatinine 1.0 mg/dL (0.6-1.0) 1.0 mg/dL (0.6-1.0) Estimated GFR (Cockcroft-Gault) 58.0 58.0 BUN/Creatinine Ratio 15 (6-20) Glucose Level 100 mg/dL (70-99) 75 mg/dL (70-99) Calcium Level 7.8 mg/dL (8.5-10.1) 8.2 mg/dL (8.5-10.1) Total Bilirubin 0.5 mg/dL (0.2-1.0) Aspartate Amino Transf (AST/SGOT) 84 U/L (15-37) Alanine Aminotransferase (ALT/SGPT) 97 U/L (14-59) Alkaline Phosphatase 63 U/L (46-116) Total Protein 5.7 g/dL (6.4-8.2) Albumin 2.6 g/dL (3.4-5.0) Albumin/Globulin Ratio 0.8 (1.0-1.7) Laboratory Tests Test 04/11/18 04:30 White Blood Count 16.0 x10^3/uL (4.0-11.0) Red Blood Count 3.43 x10^6/uL (3.50-5.40) Hemoglobin 10.8 g/dL (12.0-15.5) Hematocrit 31.7 % (36.0-47.0) Mean Corpuscular Volume 93 fL (79-100) Mean Corpuscular Hemoglobin 31 pg (25-35) Mean Corpuscular Hemoglobin Concent 34 g/dL (31-37) Red Cell Distribution Width 13.5 % (11.5-14.5) Platelet Count 280 x10^3/uL (140-400) Neutrophils (%) (Auto) 80 % (31-73) Lymphocytes (%) (Auto) 12 % (24-48) Monocytes (%) (Auto) 7 % (0-9) Eosinophils (%) (Auto) 1 % (0-3) Basophils (%) (Auto) 0 % (0-3) Neutrophils # (Auto) 12.7 x10^3uL (1.8-7.7) Lymphocytes # (Auto) 1.9 x10^3/uL (1.0-4.8) Monocytes # (Auto) 1.1 x10^3/uL (0.0-1.1) Eosinophils # (Auto) 0.2 x10^3/uL (0.0-0.7) Basophils # (Auto) 0.0 x10^3/uL (0.0-0.2) Sodium Level 136 mmol/L (136-145) Potassium Level 3.9 mmol/L (3.5-5.1) Chloride Level 104 mmol/L (98-107) Carbon Dioxide Level 24 mmol/L (21-32) Anion Gap 8 (6-14) Blood Urea Nitrogen 11 mg/dL (7-20) Creatinine 1.0 mg/dL (0.6-1.0) Estimated GFR (Cockcroft-Gault) 58.0 Glucose Level 75 mg/dL (70-99) Calcium Level 8.2 mg/dL (8.5-10.1) Medications Current Medications Sodium Chloride 1,000 ml @ 1,000 mls/hr 1X ONCE IV Last administered on at 07:36; Start 04/09/18 at 07:00; Stop 04/09/18 at 07:59; Status DC Ondansetron HCl (Zofran) 4 mg 1X ONCE IV Last administered on 04/09/18at 07:35; Start 04/09/18 at 07:00; Stop 04/09/18 at 07:02; Status DC Morphine Sulfate (Morphine Sulfate) 4 mg 1X ONCE IV Last administered on at 07:36; Start 04/09/18 at 07:00; Stop 04/09/18 at 07:03; Status DC Iohexol (Omnipaque 300 Mg/ml) 75 ml 1X ONCE IV Last administered on 04/09/18at 08:20; Start 04/09/18 at 07:15; Stop 04/09/18 at 07:16; Status DC Info (CONTRAST GIVEN -- Rx MONITORING) 1 each PRN DAILY PRN MC SEE COMMENTS; Start 04/09/18 at 07:15; Stop 04/11/18 at 07:14; Status DC Morphine Sulfate (Morphine Sulfate) 4 mg 1X ONCE IV ; Start 04/09/18 at 08:15; Stop 04/09/18 at 08:15; Status DC Morphine Sulfate (Morphine Sulfate) 6 mg 1X ONCE IV Last administered on at 08:10; Start 04/09/18 at 08:15; Stop 04/09/18 at 08:16; Status DC Lorazepam (Ativan) 1 mg 1X ONCE IV Last administered on 04/09/18at 08:41; Start 04/09/18 at 08:45; Stop 04/09/18 at 08:46; Status DC Piperacillin Sod/ Tazobactam Sod 3.375 gm/Sodium Chloride 50 ml @ 100 mls/hr 1X ONCE IV Last administered on 04/09/18at 08:54; Start 04/09/18 at 09:00; Stop 04/09/18 at 09:29; Status DC Sodium Chloride 1,000 ml @ 1,000 mls/hr 1X ONCE IV Last administered on at 08:45; Start 04/09/18 at 08:45; Stop 04/09/18 at 09:44; Status DC Propofol 20 ml @ As Directed STK-MED ONCE IV ; Start 04/09/18 at 08:53; Stop 04/09 at 08:54; Status DC Lidocaine HCl (Lidocaine Pf 2% Vial) 5 ml STK-MED ONCE .ROUTE ; Start 04/09/18 at 08:53; Stop 04/09/18 at 08:54; Status DC Dexamethasone Sodium Phosphate (Decadron) 20 mg STK-MED ONCE .ROUTE ; Start 04/09 at 08:53; Stop 04/09/18 at 08:54; Status DC Ondansetron HCl (Zofran) 4 mg STK-MED ONCE .ROUTE ; Start 04/09/18 at 08:53; Stop 04/09/18 at 08:54; Status DC Rocuronium Coy (Zemuron) 50 mg STK-MED ONCE .ROUTE ; Start 04/09/18 at 08:53 ; Stop 04/09/18 at 08:54; Status DC Midazolam HCl (Versed) 2 mg STK-MED ONCE .ROUTE ; Start 04/09/18 at 08:54; Stop 04/09/18 at 08:55; Status DC Fentanyl Citrate (Fentanyl 2ml Vial) 100 mcg STK-MED ONCE .ROUTE ; Start at 08:54; Stop 04/09/18 at 08:56; Status DC Ondansetron HCl (Zofran) 4 mg PRN Q8HRS PRN IV NAUSEA/VOMITING; Start 04/09/18 at 09:15; Stop 04/09/18 at 15:20; Status DC Morphine Sulfate (Morphine Sulfate) 4 mg PRN Q2HR PRN IV PAIN Last administered on 04/09/18at 19:45; Start 04/09/18 at 09:15; Stop 04/09/18 at 20:15; Status DC Ondansetron HCl (Zofran) 4 mg PRN Q6HRS PRN IV NAUSEA/VOMITING; Start 04/09/18 at 09:30; Stop 04/09/18 at 15:20; Status DC Fentanyl Citrate (Fentanyl 2ml Vial) 25 mcg PRN Q5MIN PRN IV MILD PAIN; Start 04/09/18 at 09:30; Stop 04/09/18 at 20:14; Status DC Fentanyl Citrate (Fentanyl 2ml Vial) 50 mcg PRN Q5MIN PRN IV MODERATE TO SEVERE PAIN Last administered on 04/09/18at 15:17; Start 04/09/18 at 09:30; Stop at 20:14; Status DC Morphine Sulfate (Morphine Sulfate) 1 mg PRN Q10MIN PRN IV SEVERE PAIN; Start 04/09/18 at 09:30; Stop 04/09/18 at 20:14; Status DC Ringer's Solution 1,000 ml @ 30 mls/hr Q24H IV ; Start 04/09/18 at 09:17; Stop 04/09/18 at 20:14; Status DC Lidocaine HCl (Xylocaine-Mpf 1% Vial) 2 ml PRN 1X PRN ID PRIOR TO IV START; Start 04/09/18 at 09:30; Stop 04/09/18 at 20:14; Status DC Prochlorperazine Edisylate (Compazine) 5 mg PACU PRN PRN IV NAUSEA, MRX1; Start 04/09/18 at 09:30; Stop 04/09/18 at 20:14; Status DC Bupivacaine HCl/ Epinephrine Bitart (Marcaine-Epi 0.25%-[id number]) 50 ml STK-MED ONCE .ROUTE ; Start 04/09/18 at 09:01; Stop 04/09/18 at 10:02; Status DC Albumin Human 500 ml @ As Directed STK-MED ONCE IV ; Start 04/09/18 at 10:23; Stop 04/09/18 at 10:24; Status DC Fentanyl Citrate (Fentanyl 2ml Vial) 100 mcg STK-MED ONCE .ROUTE ; Start at 11:00; Stop 04/09/18 at 11:01; Status DC Rocuronium Coy (Zemuron) 50 mg STK-MED ONCE .ROUTE ; Start 04/09/18 at 11:55 ; Stop 04/09/18 at 11:56; Status DC Neostigmine Methylsulfate (Neostigmine Methylsulfate) 5 mg STK-MED ONCE .ROUTE ; Start 04/09/18 at 13:26; Stop 04/09/18 at 13:27; Status DC Glycopyrrolate (Robinul) 1 mg STK-MED ONCE .ROUTE ; Start 04/09/18 at 13:26; Stop 04/09/18 at 13:27; Status DC Sevoflurane (Ultane) 90 ml STK-MED ONCE IH ; Start 04/09/18 at 13:53; Stop at 13:54; Status DC Morphine Sulfate (Morphine Sulfate) 10 mg STK-MED ONCE .ROUTE ; Start 04/09/18 at 14:57; Stop 04/09/18 at 14:58; Status DC Enoxaparin Sodium (Lovenox 40mg Syringe) 40 mg Q24H SQ ; Start 04/09/18 at 15:30 ; Status Cancel Sodium Chloride (Normal Saline Flush) 3 ml QSHIFT PRN IV AFTER MEDS AND BLOOD DRAWS; Start 04/09/18 at 15:00 Potassium Chloride/Sodium Chloride 1,000 ml @ 125 mls/hr Q8H IV Last administered on 04/11/18at 07:09; Start 04/09/18 at 14:54; Stop 04/11/18 at 09:29 ; Status DC Morphine Sulfate 30 ml @ 0 mls/hr CONT PRN PRN IV PER PROTOCOL; Start 04/09/18 at 15:00 Ondansetron HCl (Zofran) 4 mg PRN Q6HRS PRN IV NAUESA, 1ST CHOICE; Start at 15:00 Pantoprazole Sodium 80 mg/ Sodium Chloride 100 ml @ 10 mls/hr Q10H IV Last administered on 04/11/18at 08:43; Start 04/09/18 at 15:00 Enoxaparin Sodium (Lovenox 40mg Syringe) 40 mg Q24H SQ Last administered on 06/19at 05:13; Start 04/10/18 at 05:00 Lorazepam (Ativan) 2 mg PRN Q6HRS PRN IV ANXIETY / AGITATION Last administered on 04/10/18at 05:54; Start 04/09/18 at 16:15; Stop 04/10/18 at 09:45; Status DC Vancomycin HCl (Vanco Per Pharmacy) 1 each PRN DAILY PRN MC SEE COMMENTS Last administered on 04/10/18at 11:29; Start 04/09/18 at 18:30; Stop 04/11/18 at 08:09; Status DC Piperacillin Sod/ Tazobactam Sod (Zosyn Per Pharmacy) 1 each PRN DAILY PRN MC SEE COMMENTS; Start 04/09/18 at 18:30 Fluconazole/ Sodium Chloride 200 ml @ 100 mls/hr Q24H IV Last administered on 04/10/18at 17:55; Start 04/09/18 at 19:00 Vancomycin HCl 1.75 gm/Sodium Chloride 500 ml @ 250 mls/hr 1X ONCE IV Last administered on 04/09/18at 19:56; Start 04/09/18 at 19:00; Stop 04/09/18 at 20:59; Status DC Piperacillin Sod/ Tazobactam Sod 3.375 gm/Sodium Chloride 50 ml @ 100 mls/hr Q6HRS IV Last administered on 04/11/18at 11:38; Start 04/09/18 at 18:30 Morphine Sulfate (Morphine Sulfate) 2 mg PRN Q3HRS PRN IV PAIN; Start 04/09/18 at 18:45 Morphine Sulfate (Morphine Sulfate) 4 mg PRN Q3HRS PRN IV PAIN Last administered on 04/10/18at 20:43; Start 04/09/18 at 18:45 Morphine Sulfate (Morphine Sulfate) 5 mg PRN Q3HRS PRN IV PAIN Last administered on 04/11/18at 06:39; Start 04/09/18 at 18:45 Vancomycin HCl 1 gm/Sodium Chloride 250 ml @ 250 mls/hr Q24H IV Last administered on 04/10/18at 20:01; Start 04/10/18 at 20:00; Stop 04/11/18 at 08:09; Status DC Vancomycin HCl (Vancomycin Trough Level) 1 each 1X ONCE MC ; Start 04/11/18 at 19:30; Stop 04/11/18 at 19:30; Status DC Haloperidol Lactate (Haldol Inj) 5 mg 1X ONCE IVP Last administered on at 20:44; Start 04/09/18 at 20:45; Stop 04/09/18 at 20:46; Status DC Diphenhydramine HCl (Benadryl) 25 mg 1X ONCE IVP Last administered on at 22:47; Start 04/09/18 at 20:45; Stop 04/09/18 at 20:46; Status DC Albuterol Sulfate (Ventolin Neb Soln) 2.5 mg RTQID NEB Last administered on 04/10at 11:36; Start 04/10/18 at 10:00; Stop 04/10/18 at 13:30; Status DC Lorazepam (Ativan) 2 mg PRN Q4HRS PRN IV ANXIETY / AGITATION Last administered on 04/11/18at 05:13; Start 04/10/18 at 09:45; Stop 04/11/18 at 09:05; Status DC Albuterol/ Ipratropium (Duoneb) 3 ml RTQID NEB Last administered on 04/11/18at 11:34; Start 04/10/18 at 16:00 Albuterol Sulfate (Ventolin Neb Soln) 2.5 mg PRN Q4HRS PRN NEB SHORTNESS OF BREATH; Start 04/10/18 at 13:30 Nicotine (Nicoderm Cq 21mg) 1 patch DAILY TD Last administered on 04/11/18at 09: 46; Start 04/10/18 at 15:45 Haloperidol Lactate (Haldol Inj) 2 mg PRN Q6HRS PRN IVP AGITATION, 2ND CHOICE Last administered on 04/11/18at 08:43; Start 04/10/18 at 21:30; Stop 04/11/18 at 09:05; Status DC Linezolid/Dextrose 300 ml @ 300 mls/hr Q12HR IV Last administered on at 09:45; Start 04/11/18 at 09:00 Haloperidol Lactate (Haldol Inj) 1 mg PRN Q6HRS PRN IVP AGITATION, 2ND CHOICE; Start 04/11/18 at 09:15 Lorazepam (Ativan) 0.5 mg PRN Q4HRS PRN IV ANXIETY / AGITATION; Start 04/11/18 at 09:15 Amino Acids/ Glycerin/ Electrolytes 1,000 ml @ 80 mls/hr [id number] IV Last administered on 04/11/18at 09:48; Start 04/11/18 at 09:30 Sodium Chloride 1,000 ml @ 50 mls/hr Q20H IV Last administered on 04/11/18at 09 :44; Start 04/11/18 at 09:30 Active Scripts Active Reported No Known Medications Prior To Admisstion (Info) Each 1 Each Vitals/I & O Vital Sign - Last 24 Hours 04/10/18 04/10/18 04/10/18 04/10/18 13:01 14:02 14:08 15:10 Temp 98.8 98.8 99.8 98.8 98.8 99.8 Pulse 87 97 94 B/P (MAP) 125/65 (85) 111/66 (81) 109/66 (80) O2 Delivery Nasal Cannula Nasal Cannula Nasal Cannula Nasal Cannula O2 Flow Rate 2.0 2.0 2.0 2.0 04/10/18 04/10/18 04/10/18 04/10/18 15:53 16:02 16:18 17:00 Temp 99.3 99.3 Pulse 97 101 Resp 22 B/P (MAP) 111/63 (79) 121/68 (85) Pulse Ox 98 O2 Delivery Nasal Cannula Nasal Cannula Nasal Cannula Nasal Cannula O2 Flow Rate 2.0 2.0 2.0 2.0 04/10/18 04/10/18 04/10/18 04/10/18 17:18 17:54 19:00 19:39 Temp 100.1 100.1 Pulse 102 Resp 22 20 19 B/P (MAP) 120/71 (87) Pulse Ox 96 96 94 98 O2 Delivery Nasal Cannula Nasal Cannula Nasal Cannula Nasal Cannula O2 Flow Rate 2.0 2.0 2.0 2.0 04/10/18 04/10/18 04/11/18 04/11/18 20:00 23:00 03:00 03:09 Temp 100.7 100.4 100.7 100.4 Pulse 103 96 Resp 16 16 16 B/P (MAP) 120/71 (87) 120/72 (88) Pulse Ox 91 94 94 O2 Delivery Nasal Cannula Nasal Cannula Nasal Cannula Nasal Cannula O2 Flow Rate 2.0 2.0 3.0 3.0 04/11/18 04/11/18 04/11/18 04/11/18 07:00 07:52 08:00 08:49 Temp 99.8 99.8 Pulse 106 Resp 16 16 B/P (MAP) 96/65 (75) Pulse Ox 96 96 96 O2 Delivery Nasal Cannula Nasal Cannula Nasal Cannula Nasal Cannula O2 Flow Rate 3.0 3.0 3.0 2.0 04/11/18 04/11/18 11:30 11:34 Temp 99.1 99.1 Pulse 94 B/P (MAP) 117/63 (81) Pulse Ox 98 O2 Delivery Nasal Cannula O2 Flow Rate 2.0 2.0 Intake and Output 04/10/18 04/10/18 04/11/18 15:00 23:00 07:00 Intake Total 50 ml 1208 ml 1192 ml Output Total 1195 ml 1756 ml 2275 ml Balance -1145 ml -548 ml -1083 ml AUGUSTINE MADRID MD Apr 11, 2018 12:40
[2018-04-11] MEDS: MORPHINE SULFATE 4 MG/ML DISP.SYRIN. IV PRN ×3 (13:06→19:35)
[2018-04-11] MEDS: FLUCONAZOLE 400MG/200ML PREMIX 200 ML IV SCH (17:19)
[2018-04-12] MEDS: MORPHINE SULFATE 4 MG/ML DISP.SYRIN. IV PRN ×3 (00:44→22:11)
[2018-04-12] MEDS: HALOPERIDOL LACTATE 5 MG/ML VIAL. IVP PRN ×2 (02:54→10:39)
[2018-04-12 03:00] VITALS: BP 109/69
[2018-04-12] MEDS: IV NORMAL SALINE 1000ML BAG 1,000 ML IV SCH ×2 (05:30→10:37)
[2018-04-12] MEDS: PANTOPRAZOLE SODIUM IV DRIP 80 MG in IV NORMAL SALINE 100ML 100 ML IV SCH ×2 (05:50→17:00)
[2018-04-12] MEDS: PIPERACILLIN/TAZOBACTAM 3.375 GM in IV NORMAL SALINE 50ML 50 ML IV SCH ×4 (05:51→23:59)
[2018-04-12] MEDS: ENOXAPARIN 40 MG/0.4 ML SYRINGE. SQ SCH (05:52)
[2018-04-12 06:02] LABS: BASO # 0.1 x10^3/uL (0.0-0.2); BASO % 1 % (0-3); EOS # 0.5 x10^3/uL (0.0-0.7); EOS % 4 % (0-3); HEMATOCRIT 31.8 % (36.0-47.0); HEMOGLOBIN 10.9 g/dL (12.0-15.5); LYMPH # 1.9 x10^3/uL (1.0-4.8); LYMPH % 14 % (24-48); MEAN CORPUSCULAR HEMOGLOBIN 31 pg (25-35); MEAN CORPUSCULAR HGB CONC 34 g/dL (31-37); MEAN CORPUSCULAR VOLUME 92 fL (79-100); MONO # 0.9 x10^3/uL (0.0-1.1); MONO % 7 % (0-9); NEUT # 10.5 x10^3uL (1.8-7.7); NEUT % 76 % (31-73); PLATELET COUNT 310 x10^3/uL (140-400); RED BLOOD COUNT 3.47 x10^6/uL (3.50-5.40); RED CELL DISTRIBUTION WIDTH 13.2 % (11.5-14.5); WHITE BLOOD COUNT 13.9 x10^3/uL (4.0-11.0)
[2018-04-12 06:19] LABS: ALBUMIN 2.3 g/dL (3.4-5.0); ALBUMIN/GLOBULIN RATIO 0.7 (1.0-1.7); CALCIUM 8.3 mg/dL (8.5-10.1); CREATININE 0.9 mg/dL (0.6-1.0); GFR 65.5; POTASSIUM 3.9 mmol/L (3.5-5.1); TOTAL BILIRUBIN 0.6 mg/dL (0.2-1.0); TOTAL PROTEIN 5.5 g/dL (6.4-8.2)
[2018-04-12 07:08] VITALS: BP 116/76
[2018-04-12] MEDS: IPRATRPIUM/ALBUTEROL 0.5/2.5MG 3 ML NEBU. NEB SCH ×4 (07:37→19:36)
--- NOTE | 2018-04-12 07:51 | PDOC ---
Infectious Disease Note Subjective Subjective non verbal s/p meds ROS ROS unobtainable Vital Sign Vital Signs Vital Signs Date Time Temp Pulse Resp B/P (MAP) Pulse Ox O2 Delivery O2 Flow Rate FiO2 04/12/18 07:38 98 Nasal Cannula 2.0 04/12/18 07:12 19 04/12/18 07:08 97.9 91 116/76 (89) 97.9 Physical Exam PHYSICAL EXAM CONSTITUTIONAL: appears comfortable. Non verbal. deep sleep HEENT: Her pupils are equal and reactive. Normal conjunctivae. Oral cavity, pharynx clear. She has nasal cannula in place. NECK: Supple, no JVD. LUNGS: Decreased in the bases. HEART: S1, S2. ABDOMEN: Has a binder in place. Under the binder, she has a surgical dressing with a GLENYS in place with serous tinged fluid. Abdomen is softer with + bowel sounds. EXTREMITIES: No clubbing, cyanosis or gross edema. SKIN: Warm to touch without generalized signs of rash. MITTS NEUROLOGIC: She is non responsive s/p meds Labs Lab Laboratory Tests Test 04/12/18 05:05 04/12/18 05:25 White Blood Count 13.9 x10^3/uL (4.0-11.0) Red Blood Count 3.47 x10^6/uL (3.50-5.40) Hemoglobin 10.9 g/dL (12.0-15.5) Hematocrit 31.8 % (36.0-47.0) Mean Corpuscular Volume 92 fL (79-100) Mean Corpuscular Hemoglobin 31 pg (25-35) Mean Corpuscular Hemoglobin Concent 34 g/dL (31-37) Red Cell Distribution Width 13.2 % (11.5-14.5) Platelet Count 310 x10^3/uL (140-400) Neutrophils (%) (Auto) 76 % (31-73) Lymphocytes (%) (Auto) 14 % (24-48) Monocytes (%) (Auto) 7 % (0-9) Eosinophils (%) (Auto) 4 % (0-3) Basophils (%) (Auto) 1 % (0-3) Neutrophils # (Auto) 10.5 x10^3uL (1.8-7.7) Lymphocytes # (Auto) 1.9 x10^3/uL (1.0-4.8) Monocytes # (Auto) 0.9 x10^3/uL (0.0-1.1) Eosinophils # (Auto) 0.5 x10^3/uL (0.0-0.7) Basophils # (Auto) 0.1 x10^3/uL (0.0-0.2) Sodium Level 136 mmol/L (136-145) Potassium Level 3.9 mmol/L (3.5-5.1) Chloride Level 103 mmol/L (98-107) Carbon Dioxide Level 25 mmol/L (21-32) Anion Gap 8 (6-14) Blood Urea Nitrogen 13 mg/dL (7-20) Creatinine 0.9 mg/dL (0.6-1.0) Estimated GFR (Cockcroft-Gault) 65.5 BUN/Creatinine Ratio 14 (6-20) Glucose Level 111 mg/dL (70-99) Calcium Level 8.3 mg/dL (8.5-10.1) Total Bilirubin 0.6 mg/dL (0.2-1.0) Aspartate Amino Transf (AST/SGOT) 36 U/L (15-37) Alanine Aminotransferase (ALT/SGPT) 68 U/L (14-59) Alkaline Phosphatase 97 U/L (46-116) Total Protein 5.5 g/dL (6.4-8.2) Albumin 2.3 g/dL (3.4-5.0) Albumin/Globulin Ratio 0.7 (1.0-1.7) Objective Assessment Fever - ? Post op vs med vs ? withdrawl vs ID but abd improved and Chest clear - better Leukocytosis - improved reactive plus s/p Dexamethasone 04/09 Gastric perf Mild transaminitis S/p Exploratory laparoscopy, exploratory laparotomy, subtotal gastrectomy with Juan Luis-en-Y reconstruction 04/09 Encephalopathy - now medicated Substance abuse Plan Plan of Care F/u Blood cults times 2 Cont zosyn/Fluconazole/Zyvox taper soon F/u labs/cults D/w JUDY MEAD MD Apr 12, 2018 07:51
[2018-04-12] MEDS: NICOTINE 21MG PATCH. TD SCH (08:44)
[2018-04-12] MEDS: AMINO AC 3%/ELECTROLYTE/GLYCER 1,000 ML IV SCH ×2 (10:38→23:58)
[2018-04-12 11:03] VITALS: BP 112/76
--- NOTE | 2018-04-12 11:24 | PDOC ---
PROGRESS NOTES Subjective Subjective pt appears sedated Objective Objective Vital Signs Date Time Temp Pulse Resp B/P (MAP) Pulse Ox O2 Delivery O2 Flow Rate FiO2 04/12/18 11:12 Nasal Cannula 2.0 04/12/18 11:03 98.1 91 16 112/76 (88) 98 98.1 Intake and Output 04/12/18 07:00 Intake Total 3168 ml Output Total 4130 ml Balance -962 ml Intake Oral 0 ml IV Total 1488 ml Other 1680 ml Output Urine Total 4050 ml Drainage Total 80 ml Physical Exam Abdomen: Soft (GLENYS serosang) Plan Plan of Care S/P partial gastrectomy; receiving haldol/ativan/morphine; would work to reduce sedatives/narcotics Comment Review of Relevant I have reviewed the following items dariel (where applicable) has been applied. Labs Laboratory Tests Test 04/11/18 04:30 04/12/18 05:05 04/12/18 05:25 White Blood Count 16.0 x10^3/uL (4.0-11.0) 13.9 x10^3/uL (4.0-11.0) Red Blood Count 3.43 x10^6/uL (3.50-5.40) 3.47 x10^6/uL (3.50-5.40) Hemoglobin 10.8 g/dL (12.0-15.5) 10.9 g/dL (12.0-15.5) Hematocrit 31.7 % (36.0-47.0) 31.8 % (36.0-47.0) Mean Corpuscular Volume 93 fL (79-100) 92 fL (79-100) Mean Corpuscular Hemoglobin 31 pg (25-35) 31 pg (25-35) Mean Corpuscular Hemoglobin Concent 34 g/dL (31-37) 34 g/dL (31-37) Red Cell Distribution Width 13.5 % (11.5-14.5) 13.2 % (11.5-14.5) Platelet Count 280 x10^3/uL (140-400) 310 x10^3/uL (140-400) Neutrophils (%) (Auto) 80 % (31-73) 76 % (31-73) Lymphocytes (%) (Auto) 12 % (24-48) 14 % (24-48) Monocytes (%) (Auto) 7 % (0-9) 7 % (0-9) Eosinophils (%) (Auto) 1 % (0-3) 4 % (0-3) Basophils (%) (Auto) 0 % (0-3) 1 % (0-3) Neutrophils # (Auto) 12.7 x10^3uL (1.8-7.7) 10.5 x10^3uL (1.8-7.7) Lymphocytes # (Auto) 1.9 x10^3/uL (1.0-4.8) 1.9 x10^3/uL (1.0-4.8) Monocytes # (Auto) 1.1 x10^3/uL (0.0-1.1) 0.9 x10^3/uL (0.0-1.1) Eosinophils # (Auto) 0.2 x10^3/uL (0.0-0.7) 0.5 x10^3/uL (0.0-0.7) Basophils # (Auto) 0.0 x10^3/uL (0.0-0.2) 0.1 x10^3/uL (0.0-0.2) Sodium Level 136 mmol/L (136-145) 136 mmol/L (136-145) Potassium Level 3.9 mmol/L (3.5-5.1) 3.9 mmol/L (3.5-5.1) Chloride Level 104 mmol/L (98-107) 103 mmol/L (98-107) Carbon Dioxide Level 24 mmol/L (21-32) 25 mmol/L (21-32) Anion Gap 8 (6-14) 8 (6-14) Blood Urea Nitrogen 11 mg/dL (7-20) 13 mg/dL (7-20) Creatinine 1.0 mg/dL (0.6-1.0) 0.9 mg/dL (0.6-1.0) Estimated GFR (Cockcroft-Gault) 58.0 65.5 Glucose Level 75 mg/dL (70-99) 111 mg/dL (70-99) Calcium Level 8.2 mg/dL (8.5-10.1) 8.3 mg/dL (8.5-10.1) BUN/Creatinine Ratio 14 (6-20) Total Bilirubin 0.6 mg/dL (0.2-1.0) Aspartate Amino Transf (AST/SGOT) 36 U/L (15-37) Alanine Aminotransferase (ALT/SGPT) 68 U/L (14-59) Alkaline Phosphatase 97 U/L (46-116) Total Protein 5.5 g/dL (6.4-8.2) Albumin 2.3 g/dL (3.4-5.0) Albumin/Globulin Ratio 0.7 (1.0-1.7) Laboratory Tests Test 04/12/18 05:05 04/12/18 05:25 White Blood Count 13.9 x10^3/uL (4.0-11.0) Red Blood Count 3.47 x10^6/uL (3.50-5.40) Hemoglobin 10.9 g/dL (12.0-15.5) Hematocrit 31.8 % (36.0-47.0) Mean Corpuscular Volume 92 fL (79-100) Mean Corpuscular Hemoglobin 31 pg (25-35) Mean Corpuscular Hemoglobin Concent 34 g/dL (31-37) Red Cell Distribution Width 13.2 % (11.5-14.5) Platelet Count 310 x10^3/uL (140-400) Neutrophils (%) (Auto) 76 % (31-73) Lymphocytes (%) (Auto) 14 % (24-48) Monocytes (%) (Auto) 7 % (0-9) Eosinophils (%) (Auto) 4 % (0-3) Basophils (%) (Auto) 1 % (0-3) Neutrophils # (Auto) 10.5 x10^3uL (1.8-7.7) Lymphocytes # (Auto) 1.9 x10^3/uL (1.0-4.8) Monocytes # (Auto) 0.9 x10^3/uL (0.0-1.1) Eosinophils # (Auto) 0.5 x10^3/uL (0.0-0.7) Basophils # (Auto) 0.1 x10^3/uL (0.0-0.2) Sodium Level 136 mmol/L (136-145) Potassium Level 3.9 mmol/L (3.5-5.1) Chloride Level 103 mmol/L (98-107) Carbon Dioxide Level 25 mmol/L (21-32) Anion Gap 8 (6-14) Blood Urea Nitrogen 13 mg/dL (7-20) Creatinine 0.9 mg/dL (0.6-1.0) Estimated GFR (Cockcroft-Gault) 65.5 BUN/Creatinine Ratio 14 (6-20) Glucose Level 111 mg/dL (70-99) Calcium Level 8.3 mg/dL (8.5-10.1) Total Bilirubin 0.6 mg/dL (0.2-1.0) Aspartate Amino Transf (AST/SGOT) 36 U/L (15-37) Alanine Aminotransferase (ALT/SGPT) 68 U/L (14-59) Alkaline Phosphatase 97 U/L (46-116) Total Protein 5.5 g/dL (6.4-8.2) Albumin 2.3 g/dL (3.4-5.0) Albumin/Globulin Ratio 0.7 (1.0-1.7) Medications Current Medications Sodium Chloride 1,000 ml @ 1,000 mls/hr 1X ONCE IV Last administered on at 07:36; Start 04/09/18 at 07:00; Stop 04/09/18 at 07:59; Status DC Ondansetron HCl (Zofran) 4 mg 1X ONCE IV Last administered on 04/09/18at 07:35; Start 04/09/18 at 07:00; Stop 04/09/18 at 07:02; Status DC Morphine Sulfate (Morphine Sulfate) 4 mg 1X ONCE IV Last administered on at 07:36; Start 04/09/18 at 07:00; Stop 04/09/18 at 07:03; Status DC Iohexol (Omnipaque 300 Mg/ml) 75 ml 1X ONCE IV Last administered on 04/09/18at 08:20; Start 04/09/18 at 07:15; Stop 04/09/18 at 07:16; Status DC Info (CONTRAST GIVEN -- Rx MONITORING) 1 each PRN DAILY PRN MC SEE COMMENTS; Start 04/09/18 at 07:15; Stop 04/11/18 at 07:14; Status DC Morphine Sulfate (Morphine Sulfate) 4 mg 1X ONCE IV ; Start 04/09/18 at 08:15; Stop 04/09/18 at 08:15; Status DC Morphine Sulfate (Morphine Sulfate) 6 mg 1X ONCE IV Last administered on at 08:10; Start 04/09/18 at 08:15; Stop 04/09/18 at 08:16; Status DC Lorazepam (Ativan) 1 mg 1X ONCE IV Last administered on 04/09/18at 08:41; Start 04/09/18 at 08:45; Stop 04/09/18 at 08:46; Status DC Piperacillin Sod/ Tazobactam Sod 3.375 gm/Sodium Chloride 50 ml @ 100 mls/hr 1X ONCE IV Last administered on 04/09/18at 08:54; Start 04/09/18 at 09:00; Stop 04/09/18 at 09:29; Status DC Sodium Chloride 1,000 ml @ 1,000 mls/hr 1X ONCE IV Last administered on at 08:45; Start 04/09/18 at 08:45; Stop 04/09/18 at 09:44; Status DC Propofol 20 ml @ As Directed STK-MED ONCE IV ; Start 04/09/18 at 08:53; Stop 04/09 at 08:54; Status DC Lidocaine HCl (Lidocaine Pf 2% Vial) 5 ml STK-MED ONCE .ROUTE ; Start 04/09/18 at 08:53; Stop 04/09/18 at 08:54; Status DC Dexamethasone Sodium Phosphate (Decadron) 20 mg STK-MED ONCE .ROUTE ; Start 04/09 at 08:53; Stop 04/09/18 at 08:54; Status DC Ondansetron HCl (Zofran) 4 mg STK-MED ONCE .ROUTE ; Start 04/09/18 at 08:53; Stop 04/09/18 at 08:54; Status DC Rocuronium Fortson (Zemuron) 50 mg STK-MED ONCE .ROUTE ; Start 04/09/18 at 08:53 ; Stop 04/09/18 at 08:54; Status DC Midazolam HCl (Versed) 2 mg STK-MED ONCE .ROUTE ; Start 04/09/18 at 08:54; Stop 04/09/18 at 08:55; Status DC Fentanyl Citrate (Fentanyl 2ml Vial) 100 mcg STK-MED ONCE .ROUTE ; Start at 08:54; Stop 04/09/18 at 08:56; Status DC Ondansetron HCl (Zofran) 4 mg PRN Q8HRS PRN IV NAUSEA/VOMITING; Start 04/09/18 at 09:15; Stop 04/09/18 at 15:20; Status DC Morphine Sulfate (Morphine Sulfate) 4 mg PRN Q2HR PRN IV PAIN Last administered on 04/09/18at 19:45; Start 04/09/18 at 09:15; Stop 04/09/18 at 20:15; Status DC Ondansetron HCl (Zofran) 4 mg PRN Q6HRS PRN IV NAUSEA/VOMITING; Start 04/09/18 at 09:30; Stop 04/09/18 at 15:20; Status DC Fentanyl Citrate (Fentanyl 2ml Vial) 25 mcg PRN Q5MIN PRN IV MILD PAIN; Start 04/09/18 at 09:30; Stop 04/09/18 at 20:14; Status DC Fentanyl Citrate (Fentanyl 2ml Vial) 50 mcg PRN Q5MIN PRN IV MODERATE TO SEVERE PAIN Last administered on 04/09/18at 15:17; Start 04/09/18 at 09:30; Stop at 20:14; Status DC Morphine Sulfate (Morphine Sulfate) 1 mg PRN Q10MIN PRN IV SEVERE PAIN; Start 04/09/18 at 09:30; Stop 04/09/18 at 20:14; Status DC Ringer's Solution 1,000 ml @ 30 mls/hr Q24H IV ; Start 04/09/18 at 09:17; Stop 04/09/18 at 20:14; Status DC Lidocaine HCl (Xylocaine-Mpf 1% Vial) 2 ml PRN 1X PRN ID PRIOR TO IV START; Start 04/09/18 at 09:30; Stop 04/09/18 at 20:14; Status DC Prochlorperazine Edisylate (Compazine) 5 mg PACU PRN PRN IV NAUSEA, MRX1; Start 04/09/18 at 09:30; Stop 04/09/18 at 20:14; Status DC Bupivacaine HCl/ Epinephrine Bitart (Marcaine-Epi 0.25%-[id number]) 50 ml STK-MED ONCE .ROUTE ; Start 04/09/18 at 09:01; Stop 04/09/18 at 10:02; Status DC Albumin Human 500 ml @ As Directed STK-MED ONCE IV ; Start 04/09/18 at 10:23; Stop 04/09/18 at 10:24; Status DC Fentanyl Citrate (Fentanyl 2ml Vial) 100 mcg STK-MED ONCE .ROUTE ; Start at 11:00; Stop 04/09/18 at 11:01; Status DC Rocuronium Fortson (Zemuron) 50 mg STK-MED ONCE .ROUTE ; Start 04/09/18 at 11:55 ; Stop 04/09/18 at 11:56; Status DC Neostigmine Methylsulfate (Neostigmine Methylsulfate) 5 mg STK-MED ONCE .ROUTE ; Start 04/09/18 at 13:26; Stop 04/09/18 at 13:27; Status DC Glycopyrrolate (Robinul) 1 mg STK-MED ONCE .ROUTE ; Start 04/09/18 at 13:26; Stop 04/09/18 at 13:27; Status DC Sevoflurane (Ultane) 90 ml STK-MED ONCE IH ; Start 04/09/18 at 13:53; Stop at 13:54; Status DC Morphine Sulfate (Morphine Sulfate) 10 mg STK-MED ONCE .ROUTE ; Start 04/09/18 at 14:57; Stop 04/09/18 at 14:58; Status DC Enoxaparin Sodium (Lovenox 40mg Syringe) 40 mg Q24H SQ ; Start 04/09/18 at 15:30 ; Status Cancel Sodium Chloride (Normal Saline Flush) 3 ml QSHIFT PRN IV AFTER MEDS AND BLOOD DRAWS; Start 04/09/18 at 15:00 Potassium Chloride/Sodium Chloride 1,000 ml @ 125 mls/hr Q8H IV Last administered on 04/11/18at 07:09; Start 04/09/18 at 14:54; Stop 04/11/18 at 09:29 ; Status DC Morphine Sulfate 30 ml @ 0 mls/hr CONT PRN PRN IV PER PROTOCOL; Start 04/09/18 at 15:00 Ondansetron HCl (Zofran) 4 mg PRN Q6HRS PRN IV NAUESA, 1ST CHOICE; Start at 15:00 Pantoprazole Sodium 80 mg/ Sodium Chloride 100 ml @ 10 mls/hr Q10H IV Last administered on 04/12/18at 05:50; Start 04/09/18 at 15:00 Enoxaparin Sodium (Lovenox 40mg Syringe) 40 mg Q24H SQ Last administered on 07/20at 05:52; Start 04/10/18 at 05:00 Lorazepam (Ativan) 2 mg PRN Q6HRS PRN IV ANXIETY / AGITATION Last administered on 04/10/18at 05:54; Start 04/09/18 at 16:15; Stop 04/10/18 at 09:45; Status DC Vancomycin HCl (Vanco Per Pharmacy) 1 each PRN DAILY PRN MC SEE COMMENTS Last administered on 04/10/18at 11:29; Start 04/09/18 at 18:30; Stop 04/11/18 at 08:09; Status DC Piperacillin Sod/ Tazobactam Sod (Zosyn Per Pharmacy) 1 each PRN DAILY PRN MC SEE COMMENTS; Start 04/09/18 at 18:30 Fluconazole/ Sodium Chloride 200 ml @ 100 mls/hr Q24H IV Last administered on 04/11/18at 17:19; Start 04/09/18 at 19:00 Vancomycin HCl 1.75 gm/Sodium Chloride 500 ml @ 250 mls/hr 1X ONCE IV Last administered on 04/09/18at 19:56; Start 04/09/18 at 19:00; Stop 04/09/18 at 20:59; Status DC Piperacillin Sod/ Tazobactam Sod 3.375 gm/Sodium Chloride 50 ml @ 100 mls/hr Q6HRS IV Last administered on 04/12/18at 10:38; Start 04/09/18 at 18:30 Morphine Sulfate (Morphine Sulfate) 2 mg PRN Q3HRS PRN IV PAIN; Start 04/09/18 at 18:45 Morphine Sulfate (Morphine Sulfate) 4 mg PRN Q3HRS PRN IV PAIN Last administered on 04/12/18at 07:12; Start 04/09/18 at 18:45 Morphine Sulfate (Morphine Sulfate) 5 mg PRN Q3HRS PRN IV PAIN Last administered on 04/11/18at 06:39; Start 04/09/18 at 18:45 Vancomycin HCl 1 gm/Sodium Chloride 250 ml @ 250 mls/hr Q24H IV Last administered on 04/10/18at 20:01; Start 04/10/18 at 20:00; Stop 04/11/18 at 08:09; Status DC Vancomycin HCl (Vancomycin Trough Level) 1 each 1X ONCE MC ; Start 04/11/18 at 19:30; Stop 04/11/18 at 19:30; Status DC Haloperidol Lactate (Haldol Inj) 5 mg 1X ONCE IVP Last administered on at 20:44; Start 04/09/18 at 20:45; Stop 04/09/18 at 20:46; Status DC Diphenhydramine HCl (Benadryl) 25 mg 1X ONCE IVP Last administered on at 22:47; Start 04/09/18 at 20:45; Stop 04/09/18 at 20:46; Status DC Albuterol Sulfate (Ventolin Neb Soln) 2.5 mg RTQID NEB Last administered on 04/10at 11:36; Start 04/10/18 at 10:00; Stop 04/10/18 at 13:30; Status DC Lorazepam (Ativan) 2 mg PRN Q4HRS PRN IV ANXIETY / AGITATION Last administered on 04/11/18at 05:13; Start 04/10/18 at 09:45; Stop 04/11/18 at 09:05; Status DC Albuterol/ Ipratropium (Duoneb) 3 ml RTQID NEB Last administered on 04/12/18at 11:11; Start 04/10/18 at 16:00 Albuterol Sulfate (Ventolin Neb Soln) 2.5 mg PRN Q4HRS PRN NEB SHORTNESS OF BREATH; Start 04/10/18 at 13:30 Nicotine (Nicoderm Cq 21mg) 1 patch DAILY TD Last administered on 04/12/18at 08: 44; Start 04/10/18 at 15:45 Haloperidol Lactate (Haldol Inj) 2 mg PRN Q6HRS PRN IVP AGITATION, 2ND CHOICE Last administered on 04/11/18at 08:43; Start 04/10/18 at 21:30; Stop 04/11/18 at 09:05; Status DC Linezolid/Dextrose 300 ml @ 300 mls/hr Q12HR IV Last administered on at 08:44; Start 04/11/18 at 09:00 Haloperidol Lactate (Haldol Inj) 1 mg PRN Q6HRS PRN IVP AGITATION, 2ND CHOICE Last administered on 04/12/18at 02:54; Start 04/11/18 at 09:15 Lorazepam (Ativan) 0.5 mg PRN Q4HRS PRN IV ANXIETY / AGITATION Last administered on 04/12/18at 07:11; Start 04/11/18 at 09:15 Amino Acids/ Glycerin/ Electrolytes 1,000 ml @ 80 mls/hr [id number] IV Last administered on 04/12/18at 10:38; Start 04/11/18 at 09:30 Sodium Chloride 1,000 ml @ 50 mls/hr Q20H IV Last administered on 04/12/18at 10 :37; Start 04/11/18 at 09:30 Active Scripts Active Reported No Known Medications Prior To Admisstion (Info) Each 1 Each Vitals/I & O Vital Sign - Last 24 Hours 04/11/18 04/11/18 04/11/18 04/11/18 11:30 11:34 15:28 15:30 Temp 99.1 98.8 99.1 98.8 Pulse 94 102 B/P (MAP) 117/63 (81) 113/87 (96) Pulse Ox 98 95 O2 Delivery Nasal Cannula Nasal Cannula Nasal Cannula O2 Flow Rate 2.0 2.0 2.0 2.0 04/11/18 04/11/18 04/11/18 04/11/18 16:27 17:21 19:03 19:30 Temp 98.8 98.9 98.8 98.9 Pulse 102 101 Resp 18 18 B/P (MAP) 113/87 (96) 110/79 (89) Pulse Ox 98 95 95 O2 Delivery Nasal Cannula Nasal Cannula Nasal Cannula Nasal Cannula O2 Flow Rate 2.0 2.0 2.0 2.0 04/11/18 04/11/18 04/11/18 04/12/18 19:35 19:57 23:00 00:44 Temp 98.1 98.1 Pulse 94 Resp 20 18 20 B/P (MAP) 119/78 (92) Pulse Ox 95 O2 Delivery Nasal Cannula Nasal Cannula Nasal Cannula Nasal Cannula O2 Flow Rate 2.0 2.0 2.0 2.0 04/12/18 04/12/18 04/12/18 04/12/18 03:00 07:08 07:12 07:30 Temp 97.9 97.9 97.9 97.9 Pulse 99 91 Resp 18 18 19 B/P (MAP) 109/69 (82) 116/76 (89) Pulse Ox 95 98 98 O2 Delivery Nasal Cannula Nasal Cannula Nasal Cannula Nasal Cannula O2 Flow Rate 2.0 2.0 2.0 2.0 04/12/18 04/12/18 04/12/18 04/12/18 07:38 07:45 11:03 11:12 Temp 98.1 98.1 Pulse 91 Resp 19 16 B/P (MAP) 112/76 (88) Pulse Ox 98 98 98 O2 Delivery Nasal Cannula Nasal Cannula Nasal Cannula Nasal Cannula O2 Flow Rate 2.0 2.0 2.0 2.0 Intake and Output 04/11/18 04/11/18 04/12/18 15:00 23:00 07:00 Intake Total 508 ml 2660 ml Output Total 1430 ml 2700 ml Balance -922 ml -40 ml SUDHIR ORTEGA MD Apr 12, 2018 11:24
[2018-04-12 15:04] VITALS: BP 130/77
--- NOTE | 2018-04-12 15:18 | PDOC ---
PROGRESS NOTES Chief Complaint Chief Complaint Gastric perf S/p Exploratory laparoscopy, exploratory laparotomy, subtotal gastrectomy with Juan Luis-en-Y reconstruction 04/09 toxic, metabolic Encephalopathy Substance abuse with Amph leukocytosis copd with smoking h/o CAD plan: fu with ID, SX no NGT, ON NC npo ivf change to PPN, + NS protonix drip as per Sx on zosyn , zyvox as per ID, vanco dced add duoneb, albuterol dvt ppx asked nurse to try to avoid sedative meds. dc ativan, haldol low dose prn. has sitter. History of Present Illness History of Present Illness ROS: no chills, sob or chest pain sedated with ativan ,. arousable, but hard to answer questions or follow commands fever 100.7 04/11, afebrile today no BM post op 80 CC GLENYS drain yesterday much better Vitals Vitals Vital Signs Date Time Temp Pulse Resp B/P (MAP) Pulse Ox O2 Delivery O2 Flow Rate FiO2 04/12/18 15:04 97.6 91 18 130/77 (94) 97 Nasal Cannula 2.0 97.6 Physical Exam Physical Exam CONSTITUTIONAL: appears comfortable. Non verbal. deep sleep HEENT: Her pupils are equal and reactive. Normal conjunctivae. Oral cavity, pharynx clear. She has nasal cannula in place. NECK: Supple, no JVD. LUNGS: Decreased in the bases. HEART: S1, S2. ABDOMEN: Has a binder in place. Under the binder, she has a surgical dressing with a GLENYS in place with serous tinged fluid. Abdomen is softer with + bowel sounds. EXTREMITIES: No clubbing, cyanosis or gross edema. SKIN: Warm to touch without generalized signs of rash. MITTS NEUROLOGIC: She is non responsive s/p meds General: mild distress Heart: Regular rate, Normal S1, Normal S2 Lungs: Other (bl decreased bs ) Abdomen: Soft (GLENYS serosang) Extremities: No cyanosis Skin: No rashes Labs LABS Laboratory Tests Test 04/12/18 05:05 04/12/18 05:25 White Blood Count 13.9 x10^3/uL (4.0-11.0) Red Blood Count 3.47 x10^6/uL (3.50-5.40) Hemoglobin 10.9 g/dL (12.0-15.5) Hematocrit 31.8 % (36.0-47.0) Mean Corpuscular Volume 92 fL (79-100) Mean Corpuscular Hemoglobin 31 pg (25-35) Mean Corpuscular Hemoglobin Concent 34 g/dL (31-37) Red Cell Distribution Width 13.2 % (11.5-14.5) Platelet Count 310 x10^3/uL (140-400) Neutrophils (%) (Auto) 76 % (31-73) Lymphocytes (%) (Auto) 14 % (24-48) Monocytes (%) (Auto) 7 % (0-9) Eosinophils (%) (Auto) 4 % (0-3) Basophils (%) (Auto) 1 % (0-3) Neutrophils # (Auto) 10.5 x10^3uL (1.8-7.7) Lymphocytes # (Auto) 1.9 x10^3/uL (1.0-4.8) Monocytes # (Auto) 0.9 x10^3/uL (0.0-1.1) Eosinophils # (Auto) 0.5 x10^3/uL (0.0-0.7) Basophils # (Auto) 0.1 x10^3/uL (0.0-0.2) Sodium Level 136 mmol/L (136-145) Potassium Level 3.9 mmol/L (3.5-5.1) Chloride Level 103 mmol/L (98-107) Carbon Dioxide Level 25 mmol/L (21-32) Anion Gap 8 (6-14) Blood Urea Nitrogen 13 mg/dL (7-20) Creatinine 0.9 mg/dL (0.6-1.0) Estimated GFR (Cockcroft-Gault) 65.5 BUN/Creatinine Ratio 14 (6-20) Glucose Level 111 mg/dL (70-99) Calcium Level 8.3 mg/dL (8.5-10.1) Total Bilirubin 0.6 mg/dL (0.2-1.0) Aspartate Amino Transf (AST/SGOT) 36 U/L (15-37) Alanine Aminotransferase (ALT/SGPT) 68 U/L (14-59) Alkaline Phosphatase 97 U/L (46-116) Total Protein 5.5 g/dL (6.4-8.2) Albumin 2.3 g/dL (3.4-5.0) Albumin/Globulin Ratio 0.7 (1.0-1.7) Comment Review of Relevant I have reviewed the following items dariel (where applicable) has been applied. Labs Laboratory Tests Test 04/11/18 04:30 04/12/18 05:05 04/12/18 05:25 White Blood Count 16.0 x10^3/uL (4.0-11.0) 13.9 x10^3/uL (4.0-11.0) Red Blood Count 3.43 x10^6/uL (3.50-5.40) 3.47 x10^6/uL (3.50-5.40) Hemoglobin 10.8 g/dL (12.0-15.5) 10.9 g/dL (12.0-15.5) Hematocrit 31.7 % (36.0-47.0) 31.8 % (36.0-47.0) Mean Corpuscular Volume 93 fL (79-100) 92 fL (79-100) Mean Corpuscular Hemoglobin 31 pg (25-35) 31 pg (25-35) Mean Corpuscular Hemoglobin Concent 34 g/dL (31-37) 34 g/dL (31-37) Red Cell Distribution Width 13.5 % (11.5-14.5) 13.2 % (11.5-14.5) Platelet Count 280 x10^3/uL (140-400) 310 x10^3/uL (140-400) Neutrophils (%) (Auto) 80 % (31-73) 76 % (31-73) Lymphocytes (%) (Auto) 12 % (24-48) 14 % (24-48) Monocytes (%) (Auto) 7 % (0-9) 7 % (0-9) Eosinophils (%) (Auto) 1 % (0-3) 4 % (0-3) Basophils (%) (Auto) 0 % (0-3) 1 % (0-3) Neutrophils # (Auto) 12.7 x10^3uL (1.8-7.7) 10.5 x10^3uL (1.8-7.7) Lymphocytes # (Auto) 1.9 x10^3/uL (1.0-4.8) 1.9 x10^3/uL (1.0-4.8) Monocytes # (Auto) 1.1 x10^3/uL (0.0-1.1) 0.9 x10^3/uL (0.0-1.1) Eosinophils # (Auto) 0.2 x10^3/uL (0.0-0.7) 0.5 x10^3/uL (0.0-0.7) Basophils # (Auto) 0.0 x10^3/uL (0.0-0.2) 0.1 x10^3/uL (0.0-0.2) Sodium Level 136 mmol/L (136-145) 136 mmol/L (136-145) Potassium Level 3.9 mmol/L (3.5-5.1) 3.9 mmol/L (3.5-5.1) Chloride Level 104 mmol/L (98-107) 103 mmol/L (98-107) Carbon Dioxide Level 24 mmol/L (21-32) 25 mmol/L (21-32) Anion Gap 8 (6-14) 8 (6-14) Blood Urea Nitrogen 11 mg/dL (7-20) 13 mg/dL (7-20) Creatinine 1.0 mg/dL (0.6-1.0) 0.9 mg/dL (0.6-1.0) Estimated GFR (Cockcroft-Gault) 58.0 65.5 Glucose Level 75 mg/dL (70-99) 111 mg/dL (70-99) Calcium Level 8.2 mg/dL (8.5-10.1) 8.3 mg/dL (8.5-10.1) BUN/Creatinine Ratio 14 (6-20) Total Bilirubin 0.6 mg/dL (0.2-1.0) Aspartate Amino Transf (AST/SGOT) 36 U/L (15-37) Alanine Aminotransferase (ALT/SGPT) 68 U/L (14-59) Alkaline Phosphatase 97 U/L (46-116) Total Protein 5.5 g/dL (6.4-8.2) Albumin 2.3 g/dL (3.4-5.0) Albumin/Globulin Ratio 0.7 (1.0-1.7) Laboratory Tests Test 04/12/18 05:05 04/12/18 05:25 White Blood Count 13.9 x10^3/uL (4.0-11.0) Red Blood Count 3.47 x10^6/uL (3.50-5.40) Hemoglobin 10.9 g/dL (12.0-15.5) Hematocrit 31.8 % (36.0-47.0) Mean Corpuscular Volume 92 fL (79-100) Mean Corpuscular Hemoglobin 31 pg (25-35) Mean Corpuscular Hemoglobin Concent 34 g/dL (31-37) Red Cell Distribution Width 13.2 % (11.5-14.5) Platelet Count 310 x10^3/uL (140-400) Neutrophils (%) (Auto) 76 % (31-73) Lymphocytes (%) (Auto) 14 % (24-48) Monocytes (%) (Auto) 7 % (0-9) Eosinophils (%) (Auto) 4 % (0-3) Basophils (%) (Auto) 1 % (0-3) Neutrophils # (Auto) 10.5 x10^3uL (1.8-7.7) Lymphocytes # (Auto) 1.9 x10^3/uL (1.0-4.8) Monocytes # (Auto) 0.9 x10^3/uL (0.0-1.1) Eosinophils # (Auto) 0.5 x10^3/uL (0.0-0.7) Basophils # (Auto) 0.1 x10^3/uL (0.0-0.2) Sodium Level 136 mmol/L (136-145) Potassium Level 3.9 mmol/L (3.5-5.1) Chloride Level 103 mmol/L (98-107) Carbon Dioxide Level 25 mmol/L (21-32) Anion Gap 8 (6-14) Blood Urea Nitrogen 13 mg/dL (7-20) Creatinine 0.9 mg/dL (0.6-1.0) Estimated GFR (Cockcroft-Gault) 65.5 BUN/Creatinine Ratio 14 (6-20) Glucose Level 111 mg/dL (70-99) Calcium Level 8.3 mg/dL (8.5-10.1) Total Bilirubin 0.6 mg/dL (0.2-1.0) Aspartate Amino Transf (AST/SGOT) 36 U/L (15-37) Alanine Aminotransferase (ALT/SGPT) 68 U/L (14-59) Alkaline Phosphatase 97 U/L (46-116) Total Protein 5.5 g/dL (6.4-8.2) Albumin 2.3 g/dL (3.4-5.0) Albumin/Globulin Ratio 0.7 (1.0-1.7) Microbiology 04/11/18 Blood Culture - Preliminary, Resulted NO GROWTH AFTER 1 DAY Medications Current Medications Sodium Chloride 1,000 ml @ 1,000 mls/hr 1X ONCE IV Last administered on at 07:36; Start 04/09/18 at 07:00; Stop 04/09/18 at 07:59; Status DC Ondansetron HCl (Zofran) 4 mg 1X ONCE IV Last administered on 04/09/18at 07:35; Start 04/09/18 at 07:00; Stop 04/09/18 at 07:02; Status DC Morphine Sulfate (Morphine Sulfate) 4 mg 1X ONCE IV Last administered on at 07:36; Start 04/09/18 at 07:00; Stop 04/09/18 at 07:03; Status DC Iohexol (Omnipaque 300 Mg/ml) 75 ml 1X ONCE IV Last administered on 04/09/18at 08:20; Start 04/09/18 at 07:15; Stop 04/09/18 at 07:16; Status DC Info (CONTRAST GIVEN -- Rx MONITORING) 1 each PRN DAILY PRN MC SEE COMMENTS; Start 04/09/18 at 07:15; Stop 04/11/18 at 07:14; Status DC Morphine Sulfate (Morphine Sulfate) 4 mg 1X ONCE IV ; Start 04/09/18 at 08:15; Stop 04/09/18 at 08:15; Status DC Morphine Sulfate (Morphine Sulfate) 6 mg 1X ONCE IV Last administered on at 08:10; Start 04/09/18 at 08:15; Stop 04/09/18 at 08:16; Status DC Lorazepam (Ativan) 1 mg 1X ONCE IV Last administered on 04/09/18at 08:41; Start 04/09/18 at 08:45; Stop 04/09/18 at 08:46; Status DC Piperacillin Sod/ Tazobactam Sod 3.375 gm/Sodium Chloride 50 ml @ 100 mls/hr 1X ONCE IV Last administered on 04/09/18at 08:54; Start 04/09/18 at 09:00; Stop 04/09/18 at 09:29; Status DC Sodium Chloride 1,000 ml @ 1,000 mls/hr 1X ONCE IV Last administered on at 08:45; Start 04/09/18 at 08:45; Stop 04/09/18 at 09:44; Status DC Propofol 20 ml @ As Directed STK-MED ONCE IV ; Start 04/09/18 at 08:53; Stop 04/09 at 08:54; Status DC Lidocaine HCl (Lidocaine Pf 2% Vial) 5 ml STK-MED ONCE .ROUTE ; Start 04/09/18 at 08:53; Stop 04/09/18 at 08:54; Status DC Dexamethasone Sodium Phosphate (Decadron) 20 mg STK-MED ONCE .ROUTE ; Start 04/09 at 08:53; Stop 04/09/18 at 08:54; Status DC Ondansetron HCl (Zofran) 4 mg STK-MED ONCE .ROUTE ; Start 04/09/18 at 08:53; Stop 04/09/18 at 08:54; Status DC Rocuronium [place] (Zemuron) 50 mg STK-MED ONCE .ROUTE ; Start 04/09/18 at 08:53 ; Stop 04/09/18 at 08:54; Status DC Midazolam HCl (Versed) 2 mg STK-MED ONCE .ROUTE ; Start 04/09/18 at 08:54; Stop 04/09/18 at 08:55; Status DC Fentanyl Citrate (Fentanyl 2ml Vial) 100 mcg STK-MED ONCE .ROUTE ; Start at 08:54; Stop 04/09/18 at 08:56; Status DC Ondansetron HCl (Zofran) 4 mg PRN Q8HRS PRN IV NAUSEA/VOMITING; Start 04/09/18 at 09:15; Stop 04/09/18 at 15:20; Status DC Morphine Sulfate (Morphine Sulfate) 4 mg PRN Q2HR PRN IV PAIN Last administered on 04/09/18at 19:45; Start 04/09/18 at 09:15; Stop 04/09/18 at 20:15; Status DC Ondansetron HCl (Zofran) 4 mg PRN Q6HRS PRN IV NAUSEA/VOMITING; Start 04/09/18 at 09:30; Stop 04/09/18 at 15:20; Status DC Fentanyl Citrate (Fentanyl 2ml Vial) 25 mcg PRN Q5MIN PRN IV MILD PAIN; Start 04/09/18 at 09:30; Stop 04/09/18 at 20:14; Status DC Fentanyl Citrate (Fentanyl 2ml Vial) 50 mcg PRN Q5MIN PRN IV MODERATE TO SEVERE PAIN Last administered on 04/09/18at 15:17; Start 04/09/18 at 09:30; Stop at 20:14; Status DC Morphine Sulfate (Morphine Sulfate) 1 mg PRN Q10MIN PRN IV SEVERE PAIN; Start 04/09/18 at 09:30; Stop 04/09/18 at 20:14; Status DC Ringer's Solution 1,000 ml @ 30 mls/hr Q24H IV ; Start 04/09/18 at 09:17; Stop 04/09/18 at 20:14; Status DC Lidocaine HCl (Xylocaine-Mpf 1% Vial) 2 ml PRN 1X PRN ID PRIOR TO IV START; Start 04/09/18 at 09:30; Stop 04/09/18 at 20:14; Status DC Prochlorperazine Edisylate (Compazine) 5 mg PACU PRN PRN IV NAUSEA, MRX1; Start 04/09/18 at 09:30; Stop 04/09/18 at 20:14; Status DC Bupivacaine HCl/ Epinephrine Bitart (Marcaine-Epi 0.25%-[id number]) 50 ml STK-MED ONCE .ROUTE ; Start 04/09/18 at 09:01; Stop 04/09/18 at 10:02; Status DC Albumin Human 500 ml @ As Directed STK-MED ONCE IV ; Start 04/09/18 at 10:23; Stop 04/09/18 at 10:24; Status DC Fentanyl Citrate (Fentanyl 2ml Vial) 100 mcg STK-MED ONCE .ROUTE ; Start at 11:00; Stop 04/09/18 at 11:01; Status DC Rocuronium [place] (Zemuron) 50 mg STK-MED ONCE .ROUTE ; Start 04/09/18 at 11:55 ; Stop 04/09/18 at 11:56; Status DC Neostigmine Methylsulfate (Neostigmine Methylsulfate) 5 mg STK-MED ONCE .ROUTE ; Start 04/09/18 at 13:26; Stop 04/09/18 at 13:27; Status DC Glycopyrrolate (Robinul) 1 mg STK-MED ONCE .ROUTE ; Start 04/09/18 at 13:26; Stop 04/09/18 at 13:27; Status DC Sevoflurane (Ultane) 90 ml STK-MED ONCE IH ; Start 04/09/18 at 13:53; Stop at 13:54; Status DC Morphine Sulfate (Morphine Sulfate) 10 mg STK-MED ONCE .ROUTE ; Start 04/09/18 at 14:57; Stop 04/09/18 at 14:58; Status DC Enoxaparin Sodium (Lovenox 40mg Syringe) 40 mg Q24H SQ ; Start 04/09/18 at 15:30 ; Status Cancel Sodium Chloride (Normal Saline Flush) 3 ml QSHIFT PRN IV AFTER MEDS AND BLOOD DRAWS; Start 04/09/18 at 15:00 Potassium Chloride/Sodium Chloride 1,000 ml @ 125 mls/hr Q8H IV Last administered on 04/11/18at 07:09; Start 04/09/18 at 14:54; Stop 04/11/18 at 09:29 ; Status DC Morphine Sulfate 30 ml @ 0 mls/hr CONT PRN PRN IV PER PROTOCOL; Start 04/09/18 at 15:00 Ondansetron HCl (Zofran) 4 mg PRN Q6HRS PRN IV NAUESA, 1ST CHOICE; Start at 15:00 Pantoprazole Sodium 80 mg/ Sodium Chloride 100 ml @ 10 mls/hr Q10H IV Last administered on 04/12/18at 05:50; Start 04/09/18 at 15:00 Enoxaparin Sodium (Lovenox 40mg Syringe) 40 mg Q24H SQ Last administered on 07/20at 05:52; Start 04/10/18 at 05:00 Lorazepam (Ativan) 2 mg PRN Q6HRS PRN IV ANXIETY / AGITATION Last administered on 04/10/18at 05:54; Start 04/09/18 at 16:15; Stop 04/10/18 at 09:45; Status DC Vancomycin HCl (Vanco Per Pharmacy) 1 each PRN DAILY PRN MC SEE COMMENTS Last administered on 04/10/18at 11:29; Start 04/09/18 at 18:30; Stop 04/11/18 at 08:09; Status DC Piperacillin Sod/ Tazobactam Sod (Zosyn Per Pharmacy) 1 each PRN DAILY PRN MC SEE COMMENTS; Start 04/09/18 at 18:30 Fluconazole/ Sodium Chloride 200 ml @ 100 mls/hr Q24H IV Last administered on 04/11/18at 17:19; Start 04/09/18 at 19:00 Vancomycin HCl 1.75 gm/Sodium Chloride 500 ml @ 250 mls/hr 1X ONCE IV Last administered on 04/09/18at 19:56; Start 04/09/18 at 19:00; Stop 04/09/18 at 20:59; Status DC Piperacillin Sod/ Tazobactam Sod 3.375 gm/Sodium Chloride 50 ml @ 100 mls/hr Q6HRS IV Last administered on 04/12/18at 10:38; Start 04/09/18 at 18:30 Morphine Sulfate (Morphine Sulfate) 2 mg PRN Q3HRS PRN IV MODERATE TO SEVERE PAIN; Start 04/09/18 at 18:45 Morphine Sulfate (Morphine Sulfate) 4 mg PRN Q3HRS PRN IV MODERATE TO SEVERE PAIN Last administered on 04/12/18at 07:12; Start 04/09/18 at 18:45 Morphine Sulfate (Morphine Sulfate) 5 mg PRN Q3HRS PRN IV MODERATE TO SEVERE PAIN Last administered on 04/11/18at 06:39; Start 04/09/18 at 18:45 Vancomycin HCl 1 gm/Sodium Chloride 250 ml @ 250 mls/hr Q24H IV Last administered on 04/10/18at 20:01; Start 04/10/18 at 20:00; Stop 04/11/18 at 08:09; Status DC Vancomycin HCl (Vancomycin Trough Level) 1 each 1X ONCE MC ; Start 04/11/18 at 19:30; Stop 04/11/18 at 19:30; Status DC Haloperidol Lactate (Haldol Inj) 5 mg 1X ONCE IVP Last administered on at 20:44; Start 04/09/18 at 20:45; Stop 04/09/18 at 20:46; Status DC Diphenhydramine HCl (Benadryl) 25 mg 1X ONCE IVP Last administered on at 22:47; Start 04/09/18 at 20:45; Stop 04/09/18 at 20:46; Status DC Albuterol Sulfate (Ventolin Neb Soln) 2.5 mg RTQID NEB Last administered on 04/10at 11:36; Start 04/10/18 at 10:00; Stop 04/10/18 at 13:30; Status DC Lorazepam (Ativan) 2 mg PRN Q4HRS PRN IV ANXIETY / AGITATION Last administered on 04/11/18at 05:13; Start 04/10/18 at 09:45; Stop 04/11/18 at 09:05; Status DC Albuterol/ Ipratropium (Duoneb) 3 ml RTQID NEB Last administered on 04/12/18at 11:11; Start 04/10/18 at 16:00 Albuterol Sulfate (Ventolin Neb Soln) 2.5 mg PRN Q4HRS PRN NEB SHORTNESS OF BREATH; Start 04/10/18 at 13:30 Nicotine (Nicoderm Cq 21mg) 1 patch DAILY TD Last administered on 04/12/18at 08: 44; Start 04/10/18 at 15:45 Haloperidol Lactate (Haldol Inj) 2 mg PRN Q6HRS PRN IVP AGITATION, 2ND CHOICE Last administered on 04/11/18at 08:43; Start 04/10/18 at 21:30; Stop 04/11/18 at 09:05; Status DC Linezolid/Dextrose 300 ml @ 300 mls/hr Q12HR IV Last administered on 08:44; Start 04/11/18 at 09:00 Haloperidol Lactate (Haldol Inj) 1 mg PRN Q6HRS PRN IVP AGITATION, 2ND CHOICE Last administered on 04/12/18at 02:54; Start 04/11/18 at 09:15 Lorazepam (Ativan) 0.5 mg PRN Q4HRS PRN IV ANXIETY / AGITATION Last administered on 04/12/18at 07:11; Start 04/11/18 at 09:15 Amino Acids/ Glycerin/ Electrolytes 1,000 ml @ 80 mls/hr [id number] IV Last administered on 04/12/18at 10:38; Start 04/11/18 at 09:30 Sodium Chloride 1,000 ml @ 50 mls/hr Q20H IV Last administered on 04/12/18at 10 :37; Start 04/11/18 at 09:30 Active Scripts Active Reported No Known Medications Prior To Admisstion (Info) Each 1 Each Vitals/I & O Vital Sign - Last 24 Hours 04/11/18 04/11/18 04/11/18 04/11/18 15:28 15:30 16:27 17:21 Temp 98.8 98.8 98.8 98.8 Pulse 102 102 Resp 18 B/P (MAP) 113/87 (96) 113/87 (96) Pulse Ox 95 98 95 O2 Delivery Nasal Cannula Nasal Cannula Nasal Cannula Nasal Cannula O2 Flow Rate 2.0 2.0 2.0 2.0 04/11/18 04/11/18 04/11/18 04/11/18 19:03 19:30 19:35 19:57 Temp 98.9 98.9 Pulse 101 Resp 18 20 B/P (MAP) 110/79 (89) Pulse Ox 95 O2 Delivery Nasal Cannula Nasal Cannula Nasal Cannula Nasal Cannula O2 Flow Rate 2.0 2.0 2.0 2.0 04/11/18 04/12/18 04/12/18 04/12/18 23:00 00:44 03:00 07:08 Temp 98.1 97.9 97.9 98.1 97.9 97.9 Pulse 94 99 91 Resp 18 20 18 18 B/P (MAP) 119/78 (92) 109/69 (82) 116/76 (89) Pulse Ox 95 95 98 O2 Delivery Nasal Cannula Nasal Cannula Nasal Cannula Nasal Cannula O2 Flow Rate 2.0 2.0 2.0 2.0 04/12/18 04/12/18 04/12/18 04/12/18 07:12 07:30 07:38 07:45 Resp 19 19 Pulse Ox 98 98 98 O2 Delivery Nasal Cannula Nasal Cannula Nasal Cannula Nasal Cannula O2 Flow Rate 2.0 2.0 2.0 2.0 04/12/18 04/12/18 04/12/18 11:03 11:12 15:04 Temp 98.1 97.6 98.1 97.6 Pulse 91 91 Resp 16 18 B/P (MAP) 112/76 (88) 130/77 (94) Pulse Ox 98 97 O2 Delivery Nasal Cannula Nasal Cannula Nasal Cannula O2 Flow Rate 2.0 2.0 2.0 Intake and Output 04/11/18 04/11/18 04/12/18 15:00 23:00 07:00 Intake Total 508 ml 2660 ml Output Total 1430 ml 2700 ml Balance -922 ml -40 ml AUGUSTINE MADRID MD Apr 12, 2018 15:18
[2018-04-12 19:00] VITALS: BP 144/70
[2018-04-12] MEDS: FLUCONAZOLE 400MG/200ML PREMIX 200 ML IV SCH (20:42)
[2018-04-12 22:50] VITALS: BP 121/78
[2018-04-13 03:05] VITALS: BP 114/68
[2018-04-13 05:23] LABS: BASO # 0.1 x10^3/uL (0.0-0.2); BASO % 1 % (0-3); EOS # 0.6 x10^3/uL (0.0-0.7); EOS % 6 % (0-3); HEMATOCRIT 29.8 % (36.0-47.0); HEMOGLOBIN 10.4 g/dL (12.0-15.5); LYMPH # 1.8 x10^3/uL (1.0-4.8); LYMPH % 17 % (24-48); MEAN CORPUSCULAR HEMOGLOBIN 32 pg (25-35); MEAN CORPUSCULAR HGB CONC 35 g/dL (31-37); MEAN CORPUSCULAR VOLUME 92 fL (79-100); MONO # 1.1 x10^3/uL (0.0-1.1); MONO % 10 % (0-9); NEUT # 7.3 x10^3uL (1.8-7.7); NEUT % 67 % (31-73); PLATELET COUNT 325 x10^3/uL (140-400); RED BLOOD COUNT 3.26 x10^6/uL (3.50-5.40); RED CELL DISTRIBUTION WIDTH 13.3 % (11.5-14.5); WHITE BLOOD COUNT 10.9 x10^3/uL (4.0-11.0)
[2018-04-13] MEDS: ENOXAPARIN 40 MG/0.4 ML SYRINGE. SQ SCH (05:38)
[2018-04-13] MEDS: MORPHINE SULFATE 4 MG/ML DISP.SYRIN. IV PRN ×5 (05:41→22:28)
[2018-04-13] MEDS: PIPERACILLIN/TAZOBACTAM 3.375 GM in IV NORMAL SALINE 50ML 50 ML IV SCH ×3 (05:41→16:57)
[2018-04-13 05:44] LABS: CALCIUM 8.5 mg/dL (8.5-10.1); CREATININE 0.8 mg/dL (0.6-1.0); POTASSIUM 3.5 mmol/L (3.5-5.1)
[2018-04-13 07:13] VITALS: BP 122/70
[2018-04-13] MEDS: IPRATRPIUM/ALBUTEROL 0.5/2.5MG 3 ML NEBU. NEB SCH ×4 (07:53→20:00)
[2018-04-13] MEDS: PANTOPRAZOLE SODIUM IV DRIP 80 MG in IV NORMAL SALINE 100ML 100 ML IV SCH ×3 (08:37)
[2018-04-13] MEDS: NICOTINE 21MG PATCH. TD SCH (08:38)
[2018-04-13] MEDS: AMINO AC 3%/ELECTROLYTE/GLYCER 1,000 ML IV SCH (10:46)
[2018-04-13 11:14] VITALS: BP 117/76
--- NOTE | 2018-04-13 13:33 | PDOC ---
PROGRESS NOTES Subjective Subjective more awake, alert, comfortable, denies pain Objective Objective Vital Signs Date Time Temp Pulse Resp B/P (MAP) Pulse Ox O2 Delivery O2 Flow Rate FiO2 04/13/18 12:51 Nasal Cannula 2.0 04/13/18 11:15 17 96 04/13/18 11:14 98.1 86 117/76 (90) 98.1 Intake and Output 04/13/18 07:00 Intake Total 0 ml Output Total 4300 ml Balance -4300 ml Intake Oral 0 ml Output Urine Total 4250 ml Drainage Total 50 ml Physical Exam Abdomen: Soft, No tenderness Plan Plan of Care Sips H20, Ice chips, ambulate Comment Review of Relevant I have reviewed the following items dariel (where applicable) has been applied. Labs Laboratory Tests Test 04/12/18 05:05 04/12/18 05:25 04/13/18 04:35 White Blood Count 13.9 x10^3/uL (4.0-11.0) 10.9 x10^3/uL (4.0-11.0) Red Blood Count 3.47 x10^6/uL (3.50-5.40) 3.26 x10^6/uL (3.50-5.40) Hemoglobin 10.9 g/dL (12.0-15.5) 10.4 g/dL (12.0-15.5) Hematocrit 31.8 % (36.0-47.0) 29.8 % (36.0-47.0) Mean Corpuscular Volume 92 fL (79-100) 92 fL (79-100) Mean Corpuscular Hemoglobin 31 pg (25-35) 32 pg (25-35) Mean Corpuscular Hemoglobin Concent 34 g/dL (31-37) 35 g/dL (31-37) Red Cell Distribution Width 13.2 % (11.5-14.5) 13.3 % (11.5-14.5) Platelet Count 310 x10^3/uL (140-400) 325 x10^3/uL (140-400) Neutrophils (%) (Auto) 76 % (31-73) 67 % (31-73) Lymphocytes (%) (Auto) 14 % (24-48) 17 % (24-48) Monocytes (%) (Auto) 7 % (0-9) 10 % (0-9) Eosinophils (%) (Auto) 4 % (0-3) 6 % (0-3) Basophils (%) (Auto) 1 % (0-3) 1 % (0-3) Neutrophils # (Auto) 10.5 x10^3uL (1.8-7.7) 7.3 x10^3uL (1.8-7.7) Lymphocytes # (Auto) 1.9 x10^3/uL (1.0-4.8) 1.8 x10^3/uL (1.0-4.8) Monocytes # (Auto) 0.9 x10^3/uL (0.0-1.1) 1.1 x10^3/uL (0.0-1.1) Eosinophils # (Auto) 0.5 x10^3/uL (0.0-0.7) 0.6 x10^3/uL (0.0-0.7) Basophils # (Auto) 0.1 x10^3/uL (0.0-0.2) 0.1 x10^3/uL (0.0-0.2) Sodium Level 136 mmol/L (136-145) 137 mmol/L (136-145) Potassium Level 3.9 mmol/L (3.5-5.1) 3.5 mmol/L (3.5-5.1) Chloride Level 103 mmol/L (98-107) 104 mmol/L (98-107) Carbon Dioxide Level 25 mmol/L (21-32) 24 mmol/L (21-32) Anion Gap 8 (6-14) 9 (6-14) Blood Urea Nitrogen 13 mg/dL (7-20) 12 mg/dL (7-20) Creatinine 0.9 mg/dL (0.6-1.0) 0.8 mg/dL (0.6-1.0) Estimated GFR (Cockcroft-Gault) 65.5 75.0 BUN/Creatinine Ratio 14 (6-20) Glucose Level 111 mg/dL (70-99) 100 mg/dL (70-99) Calcium Level 8.3 mg/dL (8.5-10.1) 8.5 mg/dL (8.5-10.1) Total Bilirubin 0.6 mg/dL (0.2-1.0) Aspartate Amino Transf (AST/SGOT) 36 U/L (15-37) Alanine Aminotransferase (ALT/SGPT) 68 U/L (14-59) Alkaline Phosphatase 97 U/L (46-116) Total Protein 5.5 g/dL (6.4-8.2) Albumin 2.3 g/dL (3.4-5.0) Albumin/Globulin Ratio 0.7 (1.0-1.7) Laboratory Tests Test 04/13/18 04:35 White Blood Count 10.9 x10^3/uL (4.0-11.0) Red Blood Count 3.26 x10^6/uL (3.50-5.40) Hemoglobin 10.4 g/dL (12.0-15.5) Hematocrit 29.8 % (36.0-47.0) Mean Corpuscular Volume 92 fL (79-100) Mean Corpuscular Hemoglobin 32 pg (25-35) Mean Corpuscular Hemoglobin Concent 35 g/dL (31-37) Red Cell Distribution Width 13.3 % (11.5-14.5) Platelet Count 325 x10^3/uL (140-400) Neutrophils (%) (Auto) 67 % (31-73) Lymphocytes (%) (Auto) 17 % (24-48) Monocytes (%) (Auto) 10 % (0-9) Eosinophils (%) (Auto) 6 % (0-3) Basophils (%) (Auto) 1 % (0-3) Neutrophils # (Auto) 7.3 x10^3uL (1.8-7.7) Lymphocytes # (Auto) 1.8 x10^3/uL (1.0-4.8) Monocytes # (Auto) 1.1 x10^3/uL (0.0-1.1) Eosinophils # (Auto) 0.6 x10^3/uL (0.0-0.7) Basophils # (Auto) 0.1 x10^3/uL (0.0-0.2) Sodium Level 137 mmol/L (136-145) Potassium Level 3.5 mmol/L (3.5-5.1) Chloride Level 104 mmol/L (98-107) Carbon Dioxide Level 24 mmol/L (21-32) Anion Gap 9 (6-14) Blood Urea Nitrogen 12 mg/dL (7-20) Creatinine 0.8 mg/dL (0.6-1.0) Estimated GFR (Cockcroft-Gault) 75.0 Glucose Level 100 mg/dL (70-99) Calcium Level 8.5 mg/dL (8.5-10.1) Microbiology 04/11/18 Blood Culture - Preliminary, Resulted NO GROWTH AFTER 2 DAYS Medications Current Medications Sodium Chloride 1,000 ml @ 1,000 mls/hr 1X ONCE IV Last administered on at 07:36; Start 04/09/18 at 07:00; Stop 04/09/18 at 07:59; Status DC Ondansetron HCl (Zofran) 4 mg 1X ONCE IV Last administered on 04/09/18at 07:35; Start 04/09/18 at 07:00; Stop 04/09/18 at 07:02; Status DC Morphine Sulfate (Morphine Sulfate) 4 mg 1X ONCE IV Last administered on at 07:36; Start 04/09/18 at 07:00; Stop 04/09/18 at 07:03; Status DC Iohexol (Omnipaque 300 Mg/ml) 75 ml 1X ONCE IV Last administered on 04/09/18at 08:20; Start 04/09/18 at 07:15; Stop 04/09/18 at 07:16; Status DC Info (CONTRAST GIVEN -- Rx MONITORING) 1 each PRN DAILY PRN MC SEE COMMENTS; Start 04/09/18 at 07:15; Stop 04/11/18 at 07:14; Status DC Morphine Sulfate (Morphine Sulfate) 4 mg 1X ONCE IV ; Start 04/09/18 at 08:15; Stop 04/09/18 at 08:15; Status DC Morphine Sulfate (Morphine Sulfate) 6 mg 1X ONCE IV Last administered on at 08:10; Start 04/09/18 at 08:15; Stop 04/09/18 at 08:16; Status DC Lorazepam (Ativan) 1 mg 1X ONCE IV Last administered on 04/09/18at 08:41; Start 04/09/18 at 08:45; Stop 04/09/18 at 08:46; Status DC Piperacillin Sod/ Tazobactam Sod 3.375 gm/Sodium Chloride 50 ml @ 100 mls/hr 1X ONCE IV Last administered on 04/09/18at 08:54; Start 04/09/18 at 09:00; Stop 04/09/18 at 09:29; Status DC Sodium Chloride 1,000 ml @ 1,000 mls/hr 1X ONCE IV Last administered on at 08:45; Start 04/09/18 at 08:45; Stop 04/09/18 at 09:44; Status DC Propofol 20 ml @ As Directed STK-MED ONCE IV ; Start 04/09/18 at 08:53; Stop 04/09 at 08:54; Status DC Lidocaine HCl (Lidocaine Pf 2% Vial) 5 ml STK-MED ONCE .ROUTE ; Start 04/09/18 at 08:53; Stop 04/09/18 at 08:54; Status DC Dexamethasone Sodium Phosphate (Decadron) 20 mg STK-MED ONCE .ROUTE ; Start 04/09 at 08:53; Stop 04/09/18 at 08:54; Status DC Ondansetron HCl (Zofran) 4 mg STK-MED ONCE .ROUTE ; Start 04/09/18 at 08:53; Stop 04/09/18 at 08:54; Status DC Rocuronium [place] (Zemuron) 50 mg STK-MED ONCE .ROUTE ; Start 04/09/18 at 08:53 ; Stop 04/09/18 at 08:54; Status DC Midazolam HCl (Versed) 2 mg STK-MED ONCE .ROUTE ; Start 04/09/18 at 08:54; Stop 04/09/18 at 08:55; Status DC Fentanyl Citrate (Fentanyl 2ml Vial) 100 mcg STK-MED ONCE .ROUTE ; Start at 08:54; Stop 04/09/18 at 08:56; Status DC Ondansetron HCl (Zofran) 4 mg PRN Q8HRS PRN IV NAUSEA/VOMITING; Start 04/09/18 at 09:15; Stop 04/09/18 at 15:20; Status DC Morphine Sulfate (Morphine Sulfate) 4 mg PRN Q2HR PRN IV PAIN Last administered on 04/09/18at 19:45; Start 04/09/18 at 09:15; Stop 04/09/18 at 20:15; Status DC Ondansetron HCl (Zofran) 4 mg PRN Q6HRS PRN IV NAUSEA/VOMITING; Start 04/09/18 at 09:30; Stop 04/09/18 at 15:20; Status DC Fentanyl Citrate (Fentanyl 2ml Vial) 25 mcg PRN Q5MIN PRN IV MILD PAIN; Start 04/09/18 at 09:30; Stop 04/09/18 at 20:14; Status DC Fentanyl Citrate (Fentanyl 2ml Vial) 50 mcg PRN Q5MIN PRN IV MODERATE TO SEVERE PAIN Last administered on 04/09/18at 15:17; Start 04/09/18 at 09:30; Stop at 20:14; Status DC Morphine Sulfate (Morphine Sulfate) 1 mg PRN Q10MIN PRN IV SEVERE PAIN; Start 04/09/18 at 09:30; Stop 04/09/18 at 20:14; Status DC Ringer's Solution 1,000 ml @ 30 mls/hr Q24H IV ; Start 04/09/18 at 09:17; Stop 04/09/18 at 20:14; Status DC Lidocaine HCl (Xylocaine-Mpf 1% Vial) 2 ml PRN 1X PRN ID PRIOR TO IV START; Start 04/09/18 at 09:30; Stop 04/09/18 at 20:14; Status DC Prochlorperazine Edisylate (Compazine) 5 mg PACU PRN PRN IV NAUSEA, MRX1; Start 04/09/18 at 09:30; Stop 04/09/18 at 20:14; Status DC Bupivacaine HCl/ Epinephrine Bitart (Marcaine-Epi 0.25%-1:110224) 50 ml STK-MED ONCE .ROUTE ; Start 04/09/18 at 09:01; Stop 04/09/18 at 10:02; Status DC Albumin Human 500 ml @ As Directed STK-MED ONCE IV ; Start 04/09/18 at 10:23; Stop 04/09/18 at 10:24; Status DC Fentanyl Citrate (Fentanyl 2ml Vial) 100 mcg STK-MED ONCE .ROUTE ; Start at 11:00; Stop 04/09/18 at 11:01; Status DC Rocuronium [place] (Zemuron) 50 mg STK-MED ONCE .ROUTE ; Start 04/09/18 at 11:55 ; Stop 04/09/18 at 11:56; Status DC Neostigmine Methylsulfate (Neostigmine Methylsulfate) 5 mg STK-MED ONCE .ROUTE ; Start 04/09/18 at 13:26; Stop 04/09/18 at 13:27; Status DC Glycopyrrolate (Robinul) 1 mg STK-MED ONCE .ROUTE ; Start 04/09/18 at 13:26; Stop 04/09/18 at 13:27; Status DC Sevoflurane (Ultane) 90 ml STK-MED ONCE IH ; Start 04/09/18 at 13:53; Stop at 13:54; Status DC Morphine Sulfate (Morphine Sulfate) 10 mg STK-MED ONCE .ROUTE ; Start 04/09/18 at 14:57; Stop 04/09/18 at 14:58; Status DC Enoxaparin Sodium (Lovenox 40mg Syringe) 40 mg Q24H SQ ; Start 04/09/18 at 15:30 ; Status Cancel Sodium Chloride (Normal Saline Flush) 3 ml QSHIFT PRN IV AFTER MEDS AND BLOOD DRAWS; Start 04/09/18 at 15:00 Potassium Chloride/Sodium Chloride 1,000 ml @ 125 mls/hr Q8H IV Last administered on 04/11/18at 07:09; Start 04/09/18 at 14:54; Stop 04/11/18 at 09:29 ; Status DC Morphine Sulfate 30 ml @ 0 mls/hr CONT PRN PRN IV PER PROTOCOL; Start 04/09/18 at 15:00 Ondansetron HCl (Zofran) 4 mg PRN Q6HRS PRN IV MERISSAA, 1ST CHOICE; Start at 15:00 Pantoprazole Sodium 80 mg/ Sodium Chloride 100 ml @ 10 mls/hr Q10H IV Last administered on 04/13/18at 08:37; Start 04/09/18 at 15:00 Enoxaparin Sodium (Lovenox 40mg Syringe) 40 mg Q24H SQ Last administered on 08/19at 05:38; Start 04/10/18 at 05:00 Lorazepam (Ativan) 2 mg PRN Q6HRS PRN IV ANXIETY / AGITATION Last administered on 04/10/18at 05:54; Start 04/09/18 at 16:15; Stop 04/10/18 at 09:45; Status DC Vancomycin HCl (Vanco Per Pharmacy) 1 each PRN DAILY PRN MC SEE COMMENTS Last administered on 04/10/18at 11:29; Start 04/09/18 at 18:30; Stop 04/11/18 at 08:09; Status DC Piperacillin Sod/ Tazobactam Sod (Zosyn Per Pharmacy) 1 each PRN DAILY PRN MC SEE COMMENTS; Start 04/09/18 at 18:30 Fluconazole/ Sodium Chloride 200 ml @ 100 mls/hr Q24H IV Last administered on 04/12/18at 20:42; Start 04/09/18 at 19:00 Vancomycin HCl 1.75 gm/Sodium Chloride 500 ml @ 250 mls/hr 1X ONCE IV Last administered on 04/09/18at 19:56; Start 04/09/18 at 19:00; Stop 04/09/18 at 20:59; Status DC Piperacillin Sod/ Tazobactam Sod 3.375 gm/Sodium Chloride 50 ml @ 100 mls/hr Q6HRS IV Last administered on 04/13/18at 11:28; Start 04/09/18 at 18:30 Morphine Sulfate (Morphine Sulfate) 2 mg PRN Q3HRS PRN IV MODERATE TO SEVERE PAIN; Start 04/09/18 at 18:45 Morphine Sulfate (Morphine Sulfate) 4 mg PRN Q3HRS PRN IV MODERATE TO SEVERE PAIN Last administered on 04/13/18at 10:45; Start 04/09/18 at 18:45 Morphine Sulfate (Morphine Sulfate) 5 mg PRN Q3HRS PRN IV MODERATE TO SEVERE PAIN Last administered on 04/11/18at 06:39; Start 04/09/18 at 18:45 Vancomycin HCl 1 gm/Sodium Chloride 250 ml @ 250 mls/hr Q24H IV Last administered on 04/10/18at 20:01; Start 04/10/18 at 20:00; Stop 04/11/18 at 08:09; Status DC Vancomycin HCl (Vancomycin Trough Level) 1 each 1X ONCE MC ; Start 04/11/18 at 19:30; Stop 04/11/18 at 19:30; Status DC Haloperidol Lactate (Haldol Inj) 5 mg 1X ONCE IVP Last administered on at 20:44; Start 04/09/18 at 20:45; Stop 04/09/18 at 20:46; Status DC Diphenhydramine HCl (Benadryl) 25 mg 1X ONCE IVP Last administered on at 22:47; Start 04/09/18 at 20:45; Stop 04/09/18 at 20:46; Status DC Albuterol Sulfate (Ventolin Neb Soln) 2.5 mg RTQID NEB Last administered on 04/10at 11:36; Start 04/10/18 at 10:00; Stop 04/10/18 at 13:30; Status DC Lorazepam (Ativan) 2 mg PRN Q4HRS PRN IV ANXIETY / AGITATION Last administered on 04/11/18at 05:13; Start 04/10/18 at 09:45; Stop 04/11/18 at 09:05; Status DC Albuterol/ Ipratropium (Duoneb) 3 ml RTQID NEB Last administered on 04/13/18at 12:50; Start 04/10/18 at 16:00 Albuterol Sulfate (Ventolin Neb Soln) 2.5 mg PRN Q4HRS PRN NEB SHORTNESS OF BREATH; Start 04/10/18 at 13:30 Nicotine (Nicoderm Cq 21mg) 1 patch DAILY TD Last administered on 04/13/18at 08: 38; Start 04/10/18 at 15:45 Haloperidol Lactate (Haldol Inj) 2 mg PRN Q6HRS PRN IVP AGITATION, 2ND CHOICE Last administered on 04/11/18at 08:43; Start 04/10/18 at 21:30; Stop 04/11/18 at 09:05; Status DC Linezolid/Dextrose 300 ml @ 300 mls/hr Q12HR IV Last administered on at 08:37; Start 04/11/18 at 09:00 Haloperidol Lactate (Haldol Inj) 1 mg PRN Q6HRS PRN IVP AGITATION, 2ND CHOICE Last administered on 04/12/18at 02:54; Start 04/11/18 at 09:15 Lorazepam (Ativan) 0.5 mg PRN Q4HRS PRN IV ANXIETY / AGITATION Last administered on 04/12/18at 07:11; Start 04/11/18 at 09:15; Stop 8/11/18 at 15:17 ; Status DC Amino Acids/ Glycerin/ Electrolytes 1,000 ml @ 80 mls/hr [id number] IV Last administered on 04/13/18at 10:46; Start 04/11/18 at 09:30 Sodium Chloride 1,000 ml @ 50 mls/hr Q20H IV Last administered on 04/12/18at 10 :37; Start 04/11/18 at 09:30 Active Scripts Active Reported No Known Medications Prior To Admisstion (Info) Each 1 Each Vitals/I & O Vital Sign - Last 24 Hours 04/12/18 04/12/18 04/12/18 04/12/18 15:04 15:26 19:00 20:30 Temp 97.6 99.7 97.6 99.7 Pulse 91 88 Resp 18 18 B/P (MAP) 130/77 (94) 144/70 (94) Pulse Ox 97 97 O2 Delivery Nasal Cannula Nasal Cannula Nasal Cannula Nasal Cannula O2 Flow Rate 2.0 2.0 2.0 2.0 04/12/18 04/12/18 04/12/18 04/13/18 22:11 22:41 22:50 03:05 Temp 99.0 98.2 99.0 98.2 Pulse 86 88 Resp 16 18 20 B/P (MAP) 121/78 (92) 114/68 (83) Pulse Ox 97 99 98 O2 Delivery Nasal Cannula Nasal Cannula Nasal Cannula O2 Flow Rate 2.0 2.0 2.0 2.0 04/13/18 04/13/18 04/13/18 04/13/18 05:41 07:13 07:55 08:30 Temp 97.8 97.8 Pulse 91 Resp 18 B/P (MAP) 122/70 (87) Pulse Ox 98 97 97 O2 Delivery Nasal Cannula Nasal Cannula Nasal Cannula Nasal Cannula O2 Flow Rate 2.0 2.0 2.0 2.0 04/13/18 04/13/18 04/13/18 04/13/18 10:45 11:14 11:15 12:51 Temp 98.1 98.1 Pulse 86 Resp 18 18 17 B/P (MAP) 117/76 (90) Pulse Ox 97 96 96 O2 Delivery Room Air Room Air Room Air Nasal Cannula O2 Flow Rate 2.0 Intake and Output 04/12/18 04/12/18 04/13/18 15:00 23:00 07:00 Intake Total 0 ml Output Total 1550 ml 750 ml 2000 ml Balance -1550 ml -750 ml -2000 ml SUDHIR ORTEGA MD Apr 13, 2018 13:33
[2018-04-13] MEDS: IV NORMAL SALINE 1000ML BAG 1,000 ML IV SCH (14:32)
[2018-04-13 15:00] VITALS: BP 121/77
--- NOTE | 2018-04-13 15:03 | PDOC ---
PROGRESS NOTES Chief Complaint Chief Complaint Gastric perf S/p Exploratory laparoscopy, exploratory laparotomy, subtotal gastrectomy with Juan Luis-en-Y reconstruction 04/09 toxic, metabolic Encephalopathy Substance abuse with Amph leukocytosis copd with smoking h/o CAD plan: fu with ID, SX no NGT, ON NC npo ivf change to PPN, + NS dc protonix drip to iv daily on zosyn ad zyvox as per ID, vanco dced add duoneb, albuterol dvt ppx asked nurse to try to avoid sedative meds. dc ativan, haldol low dose prn. has sitter. remove rendon, dc 1 to 1 ob History of Present Illness History of Present Illness ROS: no chills, sob or chest pain in the past 3 ds, sedated with ativan ,. arousable, but hard to answer questions or follow commands fever 100.7 04/11, afebrile today no BM post op 50 CC GLENYS drain yesterday much better 04/13: first day pt wakes up, able to walk , weak tho, aaox3 Vitals Vitals Vital Signs Date Time Temp Pulse Resp B/P (MAP) Pulse Ox O2 Delivery O2 Flow Rate FiO2 04/13/18 14:31 17 96 Room Air 04/13/18 12:51 2.0 04/13/18 11:14 98.1 86 117/76 (90) 98.1 Physical Exam Physical Exam CONSTITUTIONAL: appears comfortable. Non verbal. deep sleep HEENT: Her pupils are equal and reactive. Normal conjunctivae. Oral cavity, pharynx clear. She has nasal cannula in place. NECK: Supple, no JVD. LUNGS: Decreased in the bases. HEART: S1, S2. ABDOMEN: Has a binder in place. Under the binder, she has a surgical dressing with a GLENYS in place with serous tinged fluid. Abdomen is softer with + bowel sounds. EXTREMITIES: No clubbing, cyanosis or gross edema. SKIN: Warm to touch without generalized signs of rash. MITTS NEUROLOGIC: She is non responsive s/p meds General: mild distress Heart: Regular rate, Normal S1, Normal S2 Lungs: Other (bl decreased bs ) Abdomen: Soft, No tenderness Extremities: No cyanosis Skin: No rashes Labs LABS Laboratory Tests Test 04/13/18 04:35 White Blood Count 10.9 x10^3/uL (4.0-11.0) Red Blood Count 3.26 x10^6/uL (3.50-5.40) Hemoglobin 10.4 g/dL (12.0-15.5) Hematocrit 29.8 % (36.0-47.0) Mean Corpuscular Volume 92 fL (79-100) Mean Corpuscular Hemoglobin 32 pg (25-35) Mean Corpuscular Hemoglobin Concent 35 g/dL (31-37) Red Cell Distribution Width 13.3 % (11.5-14.5) Platelet Count 325 x10^3/uL (140-400) Neutrophils (%) (Auto) 67 % (31-73) Lymphocytes (%) (Auto) 17 % (24-48) Monocytes (%) (Auto) 10 % (0-9) Eosinophils (%) (Auto) 6 % (0-3) Basophils (%) (Auto) 1 % (0-3) Neutrophils # (Auto) 7.3 x10^3uL (1.8-7.7) Lymphocytes # (Auto) 1.8 x10^3/uL (1.0-4.8) Monocytes # (Auto) 1.1 x10^3/uL (0.0-1.1) Eosinophils # (Auto) 0.6 x10^3/uL (0.0-0.7) Basophils # (Auto) 0.1 x10^3/uL (0.0-0.2) Sodium Level 137 mmol/L (136-145) Potassium Level 3.5 mmol/L (3.5-5.1) Chloride Level 104 mmol/L (98-107) Carbon Dioxide Level 24 mmol/L (21-32) Anion Gap 9 (6-14) Blood Urea Nitrogen 12 mg/dL (7-20) Creatinine 0.8 mg/dL (0.6-1.0) Estimated GFR (Cockcroft-Gault) 75.0 Glucose Level 100 mg/dL (70-99) Calcium Level 8.5 mg/dL (8.5-10.1) Comment Review of Relevant I have reviewed the following items dariel (where applicable) has been applied. Labs Laboratory Tests Test 04/12/18 05:05 04/12/18 05:25 04/13/18 04:35 White Blood Count 13.9 x10^3/uL (4.0-11.0) 10.9 x10^3/uL (4.0-11.0) Red Blood Count 3.47 x10^6/uL (3.50-5.40) 3.26 x10^6/uL (3.50-5.40) Hemoglobin 10.9 g/dL (12.0-15.5) 10.4 g/dL (12.0-15.5) Hematocrit 31.8 % (36.0-47.0) 29.8 % (36.0-47.0) Mean Corpuscular Volume 92 fL (79-100) 92 fL (79-100) Mean Corpuscular Hemoglobin 31 pg (25-35) 32 pg (25-35) Mean Corpuscular Hemoglobin Concent 34 g/dL (31-37) 35 g/dL (31-37) Red Cell Distribution Width 13.2 % (11.5-14.5) 13.3 % (11.5-14.5) Platelet Count 310 x10^3/uL (140-400) 325 x10^3/uL (140-400) Neutrophils (%) (Auto) 76 % (31-73) 67 % (31-73) Lymphocytes (%) (Auto) 14 % (24-48) 17 % (24-48) Monocytes (%) (Auto) 7 % (0-9) 10 % (0-9) Eosinophils (%) (Auto) 4 % (0-3) 6 % (0-3) Basophils (%) (Auto) 1 % (0-3) 1 % (0-3) Neutrophils # (Auto) 10.5 x10^3uL (1.8-7.7) 7.3 x10^3uL (1.8-7.7) Lymphocytes # (Auto) 1.9 x10^3/uL (1.0-4.8) 1.8 x10^3/uL (1.0-4.8) Monocytes # (Auto) 0.9 x10^3/uL (0.0-1.1) 1.1 x10^3/uL (0.0-1.1) Eosinophils # (Auto) 0.5 x10^3/uL (0.0-0.7) 0.6 x10^3/uL (0.0-0.7) Basophils # (Auto) 0.1 x10^3/uL (0.0-0.2) 0.1 x10^3/uL (0.0-0.2) Sodium Level 136 mmol/L (136-145) 137 mmol/L (136-145) Potassium Level 3.9 mmol/L (3.5-5.1) 3.5 mmol/L (3.5-5.1) Chloride Level 103 mmol/L (98-107) 104 mmol/L (98-107) Carbon Dioxide Level 25 mmol/L (21-32) 24 mmol/L (21-32) Anion Gap 8 (6-14) 9 (6-14) Blood Urea Nitrogen 13 mg/dL (7-20) 12 mg/dL (7-20) Creatinine 0.9 mg/dL (0.6-1.0) 0.8 mg/dL (0.6-1.0) Estimated GFR (Cockcroft-Gault) 65.5 75.0 BUN/Creatinine Ratio 14 (6-20) Glucose Level 111 mg/dL (70-99) 100 mg/dL (70-99) Calcium Level 8.3 mg/dL (8.5-10.1) 8.5 mg/dL (8.5-10.1) Total Bilirubin 0.6 mg/dL (0.2-1.0) Aspartate Amino Transf (AST/SGOT) 36 U/L (15-37) Alanine Aminotransferase (ALT/SGPT) 68 U/L (14-59) Alkaline Phosphatase 97 U/L (46-116) Total Protein 5.5 g/dL (6.4-8.2) Albumin 2.3 g/dL (3.4-5.0) Albumin/Globulin Ratio 0.7 (1.0-1.7) Laboratory Tests Test 04/13/18 04:35 White Blood Count 10.9 x10^3/uL (4.0-11.0) Red Blood Count 3.26 x10^6/uL (3.50-5.40) Hemoglobin 10.4 g/dL (12.0-15.5) Hematocrit 29.8 % (36.0-47.0) Mean Corpuscular Volume 92 fL (79-100) Mean Corpuscular Hemoglobin 32 pg (25-35) Mean Corpuscular Hemoglobin Concent 35 g/dL (31-37) Red Cell Distribution Width 13.3 % (11.5-14.5) Platelet Count 325 x10^3/uL (140-400) Neutrophils (%) (Auto) 67 % (31-73) Lymphocytes (%) (Auto) 17 % (24-48) Monocytes (%) (Auto) 10 % (0-9) Eosinophils (%) (Auto) 6 % (0-3) Basophils (%) (Auto) 1 % (0-3) Neutrophils # (Auto) 7.3 x10^3uL (1.8-7.7) Lymphocytes # (Auto) 1.8 x10^3/uL (1.0-4.8) Monocytes # (Auto) 1.1 x10^3/uL (0.0-1.1) Eosinophils # (Auto) 0.6 x10^3/uL (0.0-0.7) Basophils # (Auto) 0.1 x10^3/uL (0.0-0.2) Sodium Level 137 mmol/L (136-145) Potassium Level 3.5 mmol/L (3.5-5.1) Chloride Level 104 mmol/L (98-107) Carbon Dioxide Level 24 mmol/L (21-32) Anion Gap 9 (6-14) Blood Urea Nitrogen 12 mg/dL (7-20) Creatinine 0.8 mg/dL (0.6-1.0) Estimated GFR (Cockcroft-Gault) 75.0 Glucose Level 100 mg/dL (70-99) Calcium Level 8.5 mg/dL (8.5-10.1) Microbiology 04/11/18 Blood Culture - Preliminary, Resulted NO GROWTH AFTER 2 DAYS Medications Current Medications Sodium Chloride 1,000 ml @ 1,000 mls/hr 1X ONCE IV Last administered on at 07:36; Start 04/09/18 at 07:00; Stop 04/09/18 at 07:59; Status DC Ondansetron HCl (Zofran) 4 mg 1X ONCE IV Last administered on 04/09/18at 07:35; Start 04/09/18 at 07:00; Stop 04/09/18 at 07:02; Status DC Morphine Sulfate (Morphine Sulfate) 4 mg 1X ONCE IV Last administered on at 07:36; Start 04/09/18 at 07:00; Stop 04/09/18 at 07:03; Status DC Iohexol (Omnipaque 300 Mg/ml) 75 ml 1X ONCE IV Last administered on 04/09/18at 08:20; Start 04/09/18 at 07:15; Stop 04/09/18 at 07:16; Status DC Info (CONTRAST GIVEN -- Rx MONITORING) 1 each PRN DAILY PRN MC SEE COMMENTS; Start 04/09/18 at 07:15; Stop 04/11/18 at 07:14; Status DC Morphine Sulfate (Morphine Sulfate) 4 mg 1X ONCE IV ; Start 04/09/18 at 08:15; Stop 04/09/18 at 08:15; Status DC Morphine Sulfate (Morphine Sulfate) 6 mg 1X ONCE IV Last administered on at 08:10; Start 04/09/18 at 08:15; Stop 04/09/18 at 08:16; Status DC Lorazepam (Ativan) 1 mg 1X ONCE IV Last administered on 04/09/18at 08:41; Start 04/09/18 at 08:45; Stop 04/09/18 at 08:46; Status DC Piperacillin Sod/ Tazobactam Sod 3.375 gm/Sodium Chloride 50 ml @ 100 mls/hr 1X ONCE IV Last administered on 04/09/18at 08:54; Start 04/09/18 at 09:00; Stop 04/09/18 at 09:29; Status DC Sodium Chloride 1,000 ml @ 1,000 mls/hr 1X ONCE IV Last administered on at 08:45; Start 04/09/18 at 08:45; Stop 04/09/18 at 09:44; Status DC Propofol 20 ml @ As Directed STK-MED ONCE IV ; Start 04/09/18 at 08:53; Stop 04/09 at 08:54; Status DC Lidocaine HCl (Lidocaine Pf 2% Vial) 5 ml STK-MED ONCE .ROUTE ; Start 04/09/18 at 08:53; Stop 04/09/18 at 08:54; Status DC Dexamethasone Sodium Phosphate (Decadron) 20 mg STK-MED ONCE .ROUTE ; Start 04/09 at 08:53; Stop 04/09/18 at 08:54; Status DC Ondansetron HCl (Zofran) 4 mg STK-MED ONCE .ROUTE ; Start 04/09/18 at 08:53; Stop 04/09/18 at 08:54; Status DC Rocuronium Mascot (Zemuron) 50 mg STK-MED ONCE .ROUTE ; Start 04/09/18 at 08:53 ; Stop 04/09/18 at 08:54; Status DC Midazolam HCl (Versed) 2 mg STK-MED ONCE .ROUTE ; Start 04/09/18 at 08:54; Stop 04/09/18 at 08:55; Status DC Fentanyl Citrate (Fentanyl 2ml Vial) 100 mcg STK-MED ONCE .ROUTE ; Start at 08:54; Stop 04/09/18 at 08:56; Status DC Ondansetron HCl (Zofran) 4 mg PRN Q8HRS PRN IV NAUSEA/VOMITING; Start 04/09/18 at 09:15; Stop 04/09/18 at 15:20; Status DC Morphine Sulfate (Morphine Sulfate) 4 mg PRN Q2HR PRN IV PAIN Last administered on 04/09/18at 19:45; Start 04/09/18 at 09:15; Stop 04/09/18 at 20:15; Status DC Ondansetron HCl (Zofran) 4 mg PRN Q6HRS PRN IV NAUSEA/VOMITING; Start 04/09/18 at 09:30; Stop 04/09/18 at 15:20; Status DC Fentanyl Citrate (Fentanyl 2ml Vial) 25 mcg PRN Q5MIN PRN IV MILD PAIN; Start 04/09/18 at 09:30; Stop 04/09/18 at 20:14; Status DC Fentanyl Citrate (Fentanyl 2ml Vial) 50 mcg PRN Q5MIN PRN IV MODERATE TO SEVERE PAIN Last administered on 04/09/18at 15:17; Start 04/09/18 at 09:30; Stop at 20:14; Status DC Morphine Sulfate (Morphine Sulfate) 1 mg PRN Q10MIN PRN IV SEVERE PAIN; Start 04/09/18 at 09:30; Stop 04/09/18 at 20:14; Status DC Ringer's Solution 1,000 ml @ 30 mls/hr Q24H IV ; Start 04/09/18 at 09:17; Stop 04/09/18 at 20:14; Status DC Lidocaine HCl (Xylocaine-Mpf 1% Vial) 2 ml PRN 1X PRN ID PRIOR TO IV START; Start 04/09/18 at 09:30; Stop 04/09/18 at 20:14; Status DC Prochlorperazine Edisylate (Compazine) 5 mg PACU PRN PRN IV NAUSEA, MRX1; Start 04/09/18 at 09:30; Stop 04/09/18 at 20:14; Status DC Bupivacaine HCl/ Epinephrine Bitart (Marcaine-Epi 0.25%-[id number]) 50 ml STK-MED ONCE .ROUTE ; Start 04/09/18 at 09:01; Stop 04/09/18 at 10:02; Status DC Albumin Human 500 ml @ As Directed STK-MED ONCE IV ; Start 04/09/18 at 10:23; Stop 04/09/18 at 10:24; Status DC Fentanyl Citrate (Fentanyl 2ml Vial) 100 mcg STK-MED ONCE .ROUTE ; Start at 11:00; Stop 04/09/18 at 11:01; Status DC Rocuronium Mascot (Zemuron) 50 mg STK-MED ONCE .ROUTE ; Start 04/09/18 at 11:55 ; Stop 04/09/18 at 11:56; Status DC Neostigmine Methylsulfate (Neostigmine Methylsulfate) 5 mg STK-MED ONCE .ROUTE ; Start 04/09/18 at 13:26; Stop 04/09/18 at 13:27; Status DC Glycopyrrolate (Robinul) 1 mg STK-MED ONCE .ROUTE ; Start 04/09/18 at 13:26; Stop 04/09/18 at 13:27; Status DC Sevoflurane (Ultane) 90 ml STK-MED ONCE IH ; Start 04/09/18 at 13:53; Stop at 13:54; Status DC Morphine Sulfate (Morphine Sulfate) 10 mg STK-MED ONCE .ROUTE ; Start 04/09/18 at 14:57; Stop 04/09/18 at 14:58; Status DC Enoxaparin Sodium (Lovenox 40mg Syringe) 40 mg Q24H SQ ; Start 04/09/18 at 15:30 ; Status Cancel Sodium Chloride (Normal Saline Flush) 3 ml QSHIFT PRN IV AFTER MEDS AND BLOOD DRAWS; Start 04/09/18 at 15:00 Potassium Chloride/Sodium Chloride 1,000 ml @ 125 mls/hr Q8H IV Last administered on 04/11/18at 07:09; Start 04/09/18 at 14:54; Stop 04/11/18 at 09:29 ; Status DC Morphine Sulfate 30 ml @ 0 mls/hr CONT PRN PRN IV PER PROTOCOL; Start 04/09/18 at 15:00 Ondansetron HCl (Zofran) 4 mg PRN Q6HRS PRN IV NAUESA, 1ST CHOICE; Start at 15:00 Pantoprazole Sodium 80 mg/ Sodium Chloride 100 ml @ 10 mls/hr Q10H IV Last administered on 04/13/18at 08:37; Start 04/09/18 at 15:00 Enoxaparin Sodium (Lovenox 40mg Syringe) 40 mg Q24H SQ Last administered on 08/19at 05:38; Start 04/10/18 at 05:00 Lorazepam (Ativan) 2 mg PRN Q6HRS PRN IV ANXIETY / AGITATION Last administered on 04/10/18at 05:54; Start 04/09/18 at 16:15; Stop 04/10/18 at 09:45; Status DC Vancomycin HCl (Vanco Per Pharmacy) 1 each PRN DAILY PRN MC SEE COMMENTS Last administered on 04/10/18at 11:29; Start 04/09/18 at 18:30; Stop 04/11/18 at 08:09; Status DC Piperacillin Sod/ Tazobactam Sod (Zosyn Per Pharmacy) 1 each PRN DAILY PRN MC SEE COMMENTS; Start 04/09/18 at 18:30 Fluconazole/ Sodium Chloride 200 ml @ 100 mls/hr Q24H IV Last administered on 04/12/18at 20:42; Start 04/09/18 at 19:00 Vancomycin HCl 1.75 gm/Sodium Chloride 500 ml @ 250 mls/hr 1X ONCE IV Last administered on 04/09/18at 19:56; Start 04/09/18 at 19:00; Stop 04/09/18 at 20:59; Status DC Piperacillin Sod/ Tazobactam Sod 3.375 gm/Sodium Chloride 50 ml @ 100 mls/hr Q6HRS IV Last administered on 04/13/18at 11:28; Start 04/09/18 at 18:30 Morphine Sulfate (Morphine Sulfate) 2 mg PRN Q3HRS PRN IV MODERATE TO SEVERE PAIN; Start 04/09/18 at 18:45 Morphine Sulfate (Morphine Sulfate) 4 mg PRN Q3HRS PRN IV MODERATE TO SEVERE PAIN Last administered on 04/13/18at 14:31; Start 04/09/18 at 18:45 Morphine Sulfate (Morphine Sulfate) 5 mg PRN Q3HRS PRN IV MODERATE TO SEVERE PAIN Last administered on 04/11/18at 06:39; Start 04/09/18 at 18:45 Vancomycin HCl 1 gm/Sodium Chloride 250 ml @ 250 mls/hr Q24H IV Last administered on 04/10/18at 20:01; Start 04/10/18 at 20:00; Stop 04/11/18 at 08:09; Status DC Vancomycin HCl (Vancomycin Trough Level) 1 each 1X ONCE MC ; Start 04/11/18 at 19:30; Stop 04/11/18 at 19:30; Status DC Haloperidol Lactate (Haldol Inj) 5 mg 1X ONCE IVP Last administered on at 20:44; Start 04/09/18 at 20:45; Stop 04/09/18 at 20:46; Status DC Diphenhydramine HCl (Benadryl) 25 mg 1X ONCE IVP Last administered on at 22:47; Start 04/09/18 at 20:45; Stop 04/09/18 at 20:46; Status DC Albuterol Sulfate (Ventolin Neb Soln) 2.5 mg RTQID NEB Last administered on 04/10at 11:36; Start 04/10/18 at 10:00; Stop 04/10/18 at 13:30; Status DC Lorazepam (Ativan) 2 mg PRN Q4HRS PRN IV ANXIETY / AGITATION Last administered on 04/11/18at 05:13; Start 04/10/18 at 09:45; Stop 04/11/18 at 09:05; Status DC Albuterol/ Ipratropium (Duoneb) 3 ml RTQID NEB Last administered on 04/13/18at 12:50; Start 04/10/18 at 16:00 Albuterol Sulfate (Ventolin Neb Soln) 2.5 mg PRN Q4HRS PRN NEB SHORTNESS OF BREATH; Start 04/10/18 at 13:30 Nicotine (Nicoderm Cq 21mg) 1 patch DAILY TD Last administered on 04/13/18at 08: 38; Start 04/10/18 at 15:45 Haloperidol Lactate (Haldol Inj) 2 mg PRN Q6HRS PRN IVP AGITATION, 2ND CHOICE Last administered on 04/11/18at 08:43; Start 04/10/18 at 21:30; Stop 04/11/18 at 09:05; Status DC Linezolid/Dextrose 300 ml @ 300 mls/hr Q12HR IV Last administered on at 08:37; Start 04/11/18 at 09:00 Haloperidol Lactate (Haldol Inj) 1 mg PRN Q6HRS PRN IVP AGITATION, 2ND CHOICE Last administered on 04/12/18at 02:54; Start 04/11/18 at 09:15 Lorazepam (Ativan) 0.5 mg PRN Q4HRS PRN IV ANXIETY / AGITATION Last administered on 04/12/18at 07:11; Start 04/11/18 at 09:15; Stop 04/12/18 at 15:17 ; Status DC Amino Acids/ Glycerin/ Electrolytes 1,000 ml @ 80 mls/hr [id number] IV Last administered on 04/13/18at 10:46; Start 04/11/18 at 09:30 Sodium Chloride 1,000 ml @ 50 mls/hr Q20H IV Last administered on 04/13/18at 14 :32; Start 04/11/18 at 09:30 Active Scripts Active Reported No Known Medications Prior To Admisstion (Info) Each 1 Each Vitals/I & O Vital Sign - Last 24 Hours 04/12/18 04/12/18 04/12/18 04/12/18 15:04 15:26 19:00 20:30 Temp 97.6 99.7 97.6 99.7 Pulse 91 88 Resp 18 18 B/P (MAP) 130/77 (94) 144/70 (94) Pulse Ox 97 97 O2 Delivery Nasal Cannula Nasal Cannula Nasal Cannula Nasal Cannula O2 Flow Rate 2.0 2.0 2.0 2.0 04/12/18 04/12/18 04/12/18 04/13/18 22:11 22:41 22:50 03:05 Temp 99.0 98.2 99.0 98.2 Pulse 86 88 Resp 16 18 20 B/P (MAP) 121/78 (92) 114/68 (83) Pulse Ox 97 99 98 O2 Delivery Nasal Cannula Nasal Cannula Nasal Cannula O2 Flow Rate 2.0 2.0 2.0 2.0 04/13/18 04/13/18 04/13/18 04/13/18 05:41 07:13 07:55 08:30 Temp 97.8 97.8 Pulse 91 Resp 18 B/P (MAP) 122/70 (87) Pulse Ox 98 97 97 O2 Delivery Nasal Cannula Nasal Cannula Nasal Cannula Nasal Cannula O2 Flow Rate 2.0 2.0 2.0 2.0 04/13/18 04/13/18 04/13/18 04/13/18 10:45 11:14 11:15 12:51 Temp 98.1 98.1 Pulse 86 Resp 18 18 17 B/P (MAP) 117/76 (90) Pulse Ox 97 96 96 O2 Delivery Room Air Room Air Room Air Nasal Cannula O2 Flow Rate 2.0 04/13/18 14:31 Resp 17 Pulse Ox 96 O2 Delivery Room Air Intake and Output 04/12/18 04/12/18 04/13/18 15:00 23:00 07:00 Intake Total 0 ml Output Total 1550 ml 750 ml 2000 ml Balance -1550 ml -750 ml -2000 ml AUGUSTINE MADRID MD Apr 13, 2018 15:03
[2018-04-13] MEDS: FLUCONAZOLE 400MG/200ML PREMIX 200 ML IV SCH (18:53)
[2018-04-13 19:00] VITALS: BP 126/72
[2018-04-13 23:00] VITALS: BP 116/60
[2018-04-14] MEDS: AMINO AC 3%/ELECTROLYTE/GLYCER 1,000 ML IV SCH ×2 (00:05→13:03)
[2018-04-14] MEDS: PIPERACILLIN/TAZOBACTAM 3.375 GM in IV NORMAL SALINE 50ML 50 ML IV SCH ×4 (00:06→17:15)
[2018-04-14] MEDS: MORPHINE SULFATE 4 MG/ML DISP.SYRIN. IV PRN ×7 (01:36→23:17)
[2018-04-14 03:00] VITALS: BP 115/68
[2018-04-14 04:27] LABS: BASO # 0.1 x10^3/uL (0.0-0.2); BASO % 1 % (0-3); EOS # 0.7 x10^3/uL (0.0-0.7); EOS % 6 % (0-3); HEMATOCRIT 30.1 % (36.0-47.0); HEMOGLOBIN 10.3 g/dL (12.0-15.5); LYMPH % 17 % (24-48); MEAN CORPUSCULAR HEMOGLOBIN 32 pg (25-35); MEAN CORPUSCULAR HGB CONC 34 g/dL (31-37); MEAN CORPUSCULAR VOLUME 92 fL (79-100); MONO # 1.4 x10^3/uL (0.0-1.1); MONO % 12 % (0-9); NEUT % 65 % (31-73); PLATELET COUNT 346 x10^3/uL (140-400); RED BLOOD COUNT 3.28 x10^6/uL (3.50-5.40); RED CELL DISTRIBUTION WIDTH 13.5 % (11.5-14.5); WHITE BLOOD COUNT 12.3 x10^3/uL (4.0-11.0)
[2018-04-14 05:27] LABS: CALCIUM 8.9 mg/dL (8.5-10.1); CREATININE 0.9 mg/dL (0.6-1.0); GFR 65.5; POTASSIUM 3.5 mmol/L (3.5-5.1)
[2018-04-14] MEDS: ENOXAPARIN 40 MG/0.4 ML SYRINGE. SQ SCH (05:40)
[2018-04-14 07:00] VITALS: BP 112/76
[2018-04-14] MEDS: IPRATRPIUM/ALBUTEROL 0.5/2.5MG 3 ML NEBU. NEB SCH ×4 (08:06→19:29)
--- NOTE | 2018-04-14 08:56 | PDOC ---
JON ROBLES BIOMEDICAL MANAGER 04/14/18 0855: SURGICAL PROGRESS NOTE Subjective pain managed no n/v + flatus Vital Signs Vital Signs Date Time Temp Pulse Resp B/P (MAP) Pulse Ox O2 Delivery O2 Flow Rate FiO2 04/14/18 08:08 94 Room Air 04/14/18 07:00 100.6 81 18 112/76 (88) 100.6 04/13/18 20:21 2.0 I&O Intake and Output 04/14/18 07:00 Intake Total 5280 ml Output Total 1040 ml Balance 4240 ml Intake Oral 720 ml IV Total 2480 ml Other 2080 ml Output Urine Total 1000 ml Drainage Total 40 ml # Voids 5 General: Alert, Oriented X3, Cooperative, No acute distress Abdomen: Soft, Other (drain serous, incision c/d/i, no erythema) Labs Laboratory Tests Test 04/13/18 04:35 04/14/18 03:35 White Blood Count 10.9 x10^3/uL (4.0-11.0) 12.3 x10^3/uL (4.0-11.0) Red Blood Count 3.26 x10^6/uL (3.50-5.40) 3.28 x10^6/uL (3.50-5.40) Hemoglobin 10.4 g/dL (12.0-15.5) 10.3 g/dL (12.0-15.5) Hematocrit 29.8 % (36.0-47.0) 30.1 % (36.0-47.0) Mean Corpuscular Volume 92 fL (79-100) 92 fL (79-100) Mean Corpuscular Hemoglobin 32 pg (25-35) 32 pg (25-35) Mean Corpuscular Hemoglobin Concent 35 g/dL (31-37) 34 g/dL (31-37) Red Cell Distribution Width 13.3 % (11.5-14.5) 13.5 % (11.5-14.5) Platelet Count 325 x10^3/uL (140-400) 346 x10^3/uL (140-400) Neutrophils (%) (Auto) 67 % (31-73) 65 % (31-73) Lymphocytes (%) (Auto) 17 % (24-48) 17 % (24-48) Monocytes (%) (Auto) 10 % (0-9) 12 % (0-9) Eosinophils (%) (Auto) 6 % (0-3) 6 % (0-3) Basophils (%) (Auto) 1 % (0-3) 1 % (0-3) Neutrophils # (Auto) 7.3 x10^3uL (1.8-7.7) 8.0 x10^3uL (1.8-7.7) Lymphocytes # (Auto) 1.8 x10^3/uL (1.0-4.8) 2.0 x10^3/uL (1.0-4.8) Monocytes # (Auto) 1.1 x10^3/uL (0.0-1.1) 1.4 x10^3/uL (0.0-1.1) Eosinophils # (Auto) 0.6 x10^3/uL (0.0-0.7) 0.7 x10^3/uL (0.0-0.7) Basophils # (Auto) 0.1 x10^3/uL (0.0-0.2) 0.1 x10^3/uL (0.0-0.2) Sodium Level 137 mmol/L (136-145) 136 mmol/L (136-145) Potassium Level 3.5 mmol/L (3.5-5.1) 3.5 mmol/L (3.5-5.1) Chloride Level 104 mmol/L (98-107) 104 mmol/L (98-107) Carbon Dioxide Level 24 mmol/L (21-32) 23 mmol/L (21-32) Anion Gap 9 (6-14) 9 (6-14) Blood Urea Nitrogen 12 mg/dL (7-20) 12 mg/dL (7-20) Creatinine 0.8 mg/dL (0.6-1.0) 0.9 mg/dL (0.6-1.0) Estimated GFR (Cockcroft-Gault) 75.0 65.5 Glucose Level 100 mg/dL (70-99) 98 mg/dL (70-99) Calcium Level 8.5 mg/dL (8.5-10.1) 8.9 mg/dL (8.5-10.1) Laboratory Tests Test 04/14/18 03:35 White Blood Count 12.3 x10^3/uL (4.0-11.0) Red Blood Count 3.28 x10^6/uL (3.50-5.40) Hemoglobin 10.3 g/dL (12.0-15.5) Hematocrit 30.1 % (36.0-47.0) Mean Corpuscular Volume 92 fL (79-100) Mean Corpuscular Hemoglobin 32 pg (25-35) Mean Corpuscular Hemoglobin Concent 34 g/dL (31-37) Red Cell Distribution Width 13.5 % (11.5-14.5) Platelet Count 346 x10^3/uL (140-400) Neutrophils (%) (Auto) 65 % (31-73) Lymphocytes (%) (Auto) 17 % (24-48) Monocytes (%) (Auto) 12 % (0-9) Eosinophils (%) (Auto) 6 % (0-3) Basophils (%) (Auto) 1 % (0-3) Neutrophils # (Auto) 8.0 x10^3uL (1.8-7.7) Lymphocytes # (Auto) 2.0 x10^3/uL (1.0-4.8) Monocytes # (Auto) 1.4 x10^3/uL (0.0-1.1) Eosinophils # (Auto) 0.7 x10^3/uL (0.0-0.7) Basophils # (Auto) 0.1 x10^3/uL (0.0-0.2) Sodium Level 136 mmol/L (136-145) Potassium Level 3.5 mmol/L (3.5-5.1) Chloride Level 104 mmol/L (98-107) Carbon Dioxide Level 23 mmol/L (21-32) Anion Gap 9 (6-14) Blood Urea Nitrogen 12 mg/dL (7-20) Creatinine 0.9 mg/dL (0.6-1.0) Estimated GFR (Cockcroft-Gault) 65.5 Glucose Level 98 mg/dL (70-99) Calcium Level 8.9 mg/dL (8.5-10.1) Problem List s/p partial gastrectomy start diandras SUDHIR ORTEGA MD 04/14/18 1232: SURGICAL PROGRESS NOTE Assessment/Plan Agree with above JON ROBLES BIOMEDICAL MANAGER Apr 14, 2018 08:55 SUDHIR ORTEGA MD Apr 14, 2018 12:32
[2018-04-14] MEDS: PANTOPRAZOLE IV PUSH 40 MG VIAL. IVP SCH (09:36)
[2018-04-14] MEDS: NICOTINE 21MG PATCH. TD SCH (09:37)
--- NOTE | 2018-04-14 09:38 | PDOC ---
Infectious Disease Note Subjective Subjective says feeling better, though pain present, up in chair ROS ROS no n/v/d/ does have fever Vital Sign Vital Signs Vital Signs Date Time Temp Pulse Resp B/P (MAP) Pulse Ox O2 Delivery O2 Flow Rate FiO2 04/14/18 08:08 94 Room Air 04/14/18 07:00 100.6 81 18 112/76 (88) 100.6 04/13/18 20:21 2.0 Physical Exam PHYSICAL EXAM CONSTITUTIONAL: appears comfortable. Non verbal. deep sleep HEENT: Her pupils are equal and reactive. Normal conjunctivae. Oral cavity, pharynx clear. She has nasal cannula in place. NECK: Supple, no JVD. LUNGS: Decreased in the bases. HEART: S1, S2. ABDOMEN: Has a binder in place. Under the binder, she has a surgical dressing with a GLENYS in place with serous tinged fluid. Abdomen is softer with + bowel sounds. EXTREMITIES: No clubbing, cyanosis or gross edema. SKIN: Warm to touch without generalized signs of rash. NEUROLOGIC: She is non responsive s/p meds Labs Lab Laboratory Tests Test 04/14/18 03:35 White Blood Count 12.3 x10^3/uL (4.0-11.0) Red Blood Count 3.28 x10^6/uL (3.50-5.40) Hemoglobin 10.3 g/dL (12.0-15.5) Hematocrit 30.1 % (36.0-47.0) Mean Corpuscular Volume 92 fL (79-100) Mean Corpuscular Hemoglobin 32 pg (25-35) Mean Corpuscular Hemoglobin Concent 34 g/dL (31-37) Red Cell Distribution Width 13.5 % (11.5-14.5) Platelet Count 346 x10^3/uL (140-400) Neutrophils (%) (Auto) 65 % (31-73) Lymphocytes (%) (Auto) 17 % (24-48) Monocytes (%) (Auto) 12 % (0-9) Eosinophils (%) (Auto) 6 % (0-3) Basophils (%) (Auto) 1 % (0-3) Neutrophils # (Auto) 8.0 x10^3uL (1.8-7.7) Lymphocytes # (Auto) 2.0 x10^3/uL (1.0-4.8) Monocytes # (Auto) 1.4 x10^3/uL (0.0-1.1) Eosinophils # (Auto) 0.7 x10^3/uL (0.0-0.7) Basophils # (Auto) 0.1 x10^3/uL (0.0-0.2) Sodium Level 136 mmol/L (136-145) Potassium Level 3.5 mmol/L (3.5-5.1) Chloride Level 104 mmol/L (98-107) Carbon Dioxide Level 23 mmol/L (21-32) Anion Gap 9 (6-14) Blood Urea Nitrogen 12 mg/dL (7-20) Creatinine 0.9 mg/dL (0.6-1.0) Estimated GFR (Cockcroft-Gault) 65.5 Glucose Level 98 mg/dL (70-99) Calcium Level 8.9 mg/dL (8.5-10.1) Micro Microbiology 04/11/18 Blood Culture - Preliminary, Resulted NO GROWTH AFTER 2 DAYS Objective Assessment Fever - ? Post op vs med vs ? withdrawl vs ID but abd improved and Chest clear - better Leukocytosis - reactive plus s/p Dexamethasone 04/09 Gastric perf Mild transaminitis S/p Exploratory laparoscopy, exploratory laparotomy, subtotal gastrectomy with Juan Luis-en-Y reconstruction 04/09 Encephalopathy - now medicated Substance abuse Plan Plan of Care F/u Blood cults times 2 Cont zosyn/Fluconazole/Zyvox taper soon F/u labs/cults pt/ot D/w MARYLU ANNE MD Apr 14, 2018 09:38
[2018-04-14] MEDS ORDERED: ACETAMINOPHEN 500 MG TABLET PO PRN (10:00)
--- NOTE | 2018-04-14 10:03 | PDOC ---
PROGRESS NOTES Chief Complaint Chief Complaint Gastric perf S/p Exploratory laparoscopy, exploratory laparotomy, subtotal gastrectomy with Juan Luis-en-Y reconstruction 04/09 toxic, metabolic Encephalopathy Substance abuse with Amph leukocytosis copd with smoking h/o CAD Fevers History of Present Illness History of Present Illness Low-grade temperatures GS has advanced to clear liquids today Saturday from ice chips Transfered out of ICU postop WBC 12.3 UA on 04/09 is okay Chest x-ray on 04/09 was okay Plan: Incentive spirometry Check a UA Check 2 views chest x-ray rule out pneumonia postop, but could likely be just atelectasis Patient just recently started ambulating Tylenol when necessary Blandon catheter out and voiding well dw RN Vitals Vitals Vital Signs Date Time Temp Pulse Resp B/P (MAP) Pulse Ox O2 Delivery O2 Flow Rate FiO2 04/14/18 09:36 94 Room Air 04/14/18 07:00 100.6 81 18 112/76 (88) 100.6 04/13/18 20:21 2.0 Physical Exam Physical Exam CONSTITUTIONAL: appears comfortable. Non verbal. deep sleep HEENT: Her pupils are equal and reactive. Normal conjunctivae. Oral cavity, pharynx clear. She has nasal cannula in place. NECK: Supple, no JVD. LUNGS: Decreased in the bases. HEART: S1, S2. ABDOMEN: Has a binder in place. Under the binder, she has a surgical dressing with a GLENYS in place with serous tinged fluid. Abdomen is softer with + bowel sounds. EXTREMITIES: No clubbing, cyanosis or gross edema. SKIN: Warm to touch without generalized signs of rash. NEUROLOGIC: She is non responsive s/p meds General: Alert, Oriented X3, Cooperative, No acute distress Heart: Regular rate, Normal S1, Normal S2 Lungs: Other (bl decreased bs ) Abdomen: Soft, Other (drain serous, incision c/d/i, no erythema) Extremities: No cyanosis Skin: No rashes Labs LABS Laboratory Tests Test 04/14/18 03:35 White Blood Count 12.3 x10^3/uL (4.0-11.0) Red Blood Count 3.28 x10^6/uL (3.50-5.40) Hemoglobin 10.3 g/dL (12.0-15.5) Hematocrit 30.1 % (36.0-47.0) Mean Corpuscular Volume 92 fL (79-100) Mean Corpuscular Hemoglobin 32 pg (25-35) Mean Corpuscular Hemoglobin Concent 34 g/dL (31-37) Red Cell Distribution Width 13.5 % (11.5-14.5) Platelet Count 346 x10^3/uL (140-400) Neutrophils (%) (Auto) 65 % (31-73) Lymphocytes (%) (Auto) 17 % (24-48) Monocytes (%) (Auto) 12 % (0-9) Eosinophils (%) (Auto) 6 % (0-3) Basophils (%) (Auto) 1 % (0-3) Neutrophils # (Auto) 8.0 x10^3uL (1.8-7.7) Lymphocytes # (Auto) 2.0 x10^3/uL (1.0-4.8) Monocytes # (Auto) 1.4 x10^3/uL (0.0-1.1) Eosinophils # (Auto) 0.7 x10^3/uL (0.0-0.7) Basophils # (Auto) 0.1 x10^3/uL (0.0-0.2) Sodium Level 136 mmol/L (136-145) Potassium Level 3.5 mmol/L (3.5-5.1) Chloride Level 104 mmol/L (98-107) Carbon Dioxide Level 23 mmol/L (21-32) Anion Gap 9 (6-14) Blood Urea Nitrogen 12 mg/dL (7-20) Creatinine 0.9 mg/dL (0.6-1.0) Estimated GFR (Cockcroft-Gault) 65.5 Glucose Level 98 mg/dL (70-99) Calcium Level 8.9 mg/dL (8.5-10.1) Review of Systems Review of Systems Weak, poor by mouth Left IV line hurts, the rest of ROS negative Comment Review of Relevant I have reviewed the following items dariel (where applicable) has been applied. Labs Laboratory Tests Test 04/13/18 04:35 04/14/18 03:35 White Blood Count 10.9 x10^3/uL (4.0-11.0) 12.3 x10^3/uL (4.0-11.0) Red Blood Count 3.26 x10^6/uL (3.50-5.40) 3.28 x10^6/uL (3.50-5.40) Hemoglobin 10.4 g/dL (12.0-15.5) 10.3 g/dL (12.0-15.5) Hematocrit 29.8 % (36.0-47.0) 30.1 % (36.0-47.0) Mean Corpuscular Volume 92 fL (79-100) 92 fL (79-100) Mean Corpuscular Hemoglobin 32 pg (25-35) 32 pg (25-35) Mean Corpuscular Hemoglobin Concent 35 g/dL (31-37) 34 g/dL (31-37) Red Cell Distribution Width 13.3 % (11.5-14.5) 13.5 % (11.5-14.5) Platelet Count 325 x10^3/uL (140-400) 346 x10^3/uL (140-400) Neutrophils (%) (Auto) 67 % (31-73) 65 % (31-73) Lymphocytes (%) (Auto) 17 % (24-48) 17 % (24-48) Monocytes (%) (Auto) 10 % (0-9) 12 % (0-9) Eosinophils (%) (Auto) 6 % (0-3) 6 % (0-3) Basophils (%) (Auto) 1 % (0-3) 1 % (0-3) Neutrophils # (Auto) 7.3 x10^3uL (1.8-7.7) 8.0 x10^3uL (1.8-7.7) Lymphocytes # (Auto) 1.8 x10^3/uL (1.0-4.8) 2.0 x10^3/uL (1.0-4.8) Monocytes # (Auto) 1.1 x10^3/uL (0.0-1.1) 1.4 x10^3/uL (0.0-1.1) Eosinophils # (Auto) 0.6 x10^3/uL (0.0-0.7) 0.7 x10^3/uL (0.0-0.7) Basophils # (Auto) 0.1 x10^3/uL (0.0-0.2) 0.1 x10^3/uL (0.0-0.2) Sodium Level 137 mmol/L (136-145) 136 mmol/L (136-145) Potassium Level 3.5 mmol/L (3.5-5.1) 3.5 mmol/L (3.5-5.1) Chloride Level 104 mmol/L (98-107) 104 mmol/L (98-107) Carbon Dioxide Level 24 mmol/L (21-32) 23 mmol/L (21-32) Anion Gap 9 (6-14) 9 (6-14) Blood Urea Nitrogen 12 mg/dL (7-20) 12 mg/dL (7-20) Creatinine 0.8 mg/dL (0.6-1.0) 0.9 mg/dL (0.6-1.0) Estimated GFR (Cockcroft-Gault) 75.0 65.5 Glucose Level 100 mg/dL (70-99) 98 mg/dL (70-99) Calcium Level 8.5 mg/dL (8.5-10.1) 8.9 mg/dL (8.5-10.1) Laboratory Tests Test 04/14/18 03:35 White Blood Count 12.3 x10^3/uL (4.0-11.0) Red Blood Count 3.28 x10^6/uL (3.50-5.40) Hemoglobin 10.3 g/dL (12.0-15.5) Hematocrit 30.1 % (36.0-47.0) Mean Corpuscular Volume 92 fL (79-100) Mean Corpuscular Hemoglobin 32 pg (25-35) Mean Corpuscular Hemoglobin Concent 34 g/dL (31-37) Red Cell Distribution Width 13.5 % (11.5-14.5) Platelet Count 346 x10^3/uL (140-400) Neutrophils (%) (Auto) 65 % (31-73) Lymphocytes (%) (Auto) 17 % (24-48) Monocytes (%) (Auto) 12 % (0-9) Eosinophils (%) (Auto) 6 % (0-3) Basophils (%) (Auto) 1 % (0-3) Neutrophils # (Auto) 8.0 x10^3uL (1.8-7.7) Lymphocytes # (Auto) 2.0 x10^3/uL (1.0-4.8) Monocytes # (Auto) 1.4 x10^3/uL (0.0-1.1) Eosinophils # (Auto) 0.7 x10^3/uL (0.0-0.7) Basophils # (Auto) 0.1 x10^3/uL (0.0-0.2) Sodium Level 136 mmol/L (136-145) Potassium Level 3.5 mmol/L (3.5-5.1) Chloride Level 104 mmol/L (98-107) Carbon Dioxide Level 23 mmol/L (21-32) Anion Gap 9 (6-14) Blood Urea Nitrogen 12 mg/dL (7-20) Creatinine 0.9 mg/dL (0.6-1.0) Estimated GFR (Cockcroft-Gault) 65.5 Glucose Level 98 mg/dL (70-99) Calcium Level 8.9 mg/dL (8.5-10.1) Microbiology 04/11/18 Blood Culture - Preliminary, Resulted NO GROWTH AFTER 2 DAYS Medications Current Medications Sodium Chloride 1,000 ml @ 1,000 mls/hr 1X ONCE IV Last administered on at 07:36; Start 04/09/18 at 07:00; Stop 04/09/18 at 07:59; Status DC Ondansetron HCl (Zofran) 4 mg 1X ONCE IV Last administered on 04/09/18at 07:35; Start 04/09/18 at 07:00; Stop 04/09/18 at 07:02; Status DC Morphine Sulfate (Morphine Sulfate) 4 mg 1X ONCE IV Last administered on at 07:36; Start 04/09/18 at 07:00; Stop 04/09/18 at 07:03; Status DC Iohexol (Omnipaque 300 Mg/ml) 75 ml 1X ONCE IV Last administered on 04/09/18at 08:20; Start 04/09/18 at 07:15; Stop 04/09/18 at 07:16; Status DC Info (CONTRAST GIVEN -- Rx MONITORING) 1 each PRN DAILY PRN MC SEE COMMENTS; Start 04/09/18 at 07:15; Stop 04/11/18 at 07:14; Status DC Morphine Sulfate (Morphine Sulfate) 4 mg 1X ONCE IV ; Start 04/09/18 at 08:15; Stop 04/09/18 at 08:15; Status DC Morphine Sulfate (Morphine Sulfate) 6 mg 1X ONCE IV Last administered on at 08:10; Start 04/09/18 at 08:15; Stop 04/09/18 at 08:16; Status DC Lorazepam (Ativan) 1 mg 1X ONCE IV Last administered on 04/09/18at 08:41; Start 04/09/18 at 08:45; Stop 04/09/18 at 08:46; Status DC Piperacillin Sod/ Tazobactam Sod 3.375 gm/Sodium Chloride 50 ml @ 100 mls/hr 1X ONCE IV Last administered on 04/09/18at 08:54; Start 04/09/18 at 09:00; Stop 04/09/18 at 09:29; Status DC Sodium Chloride 1,000 ml @ 1,000 mls/hr 1X ONCE IV Last administered on at 08:45; Start 04/09/18 at 08:45; Stop 04/09/18 at 09:44; Status DC Propofol 20 ml @ As Directed STK-MED ONCE IV ; Start 04/09/18 at 08:53; Stop 04/09 at 08:54; Status DC Lidocaine HCl (Lidocaine Pf 2% Vial) 5 ml STK-MED ONCE .ROUTE ; Start 04/09/18 at 08:53; Stop 04/09/18 at 08:54; Status DC Dexamethasone Sodium Phosphate (Decadron) 20 mg STK-MED ONCE .ROUTE ; Start 04/09 at 08:53; Stop 04/09/18 at 08:54; Status DC Ondansetron HCl (Zofran) 4 mg STK-MED ONCE .ROUTE ; Start 04/09/18 at 08:53; Stop 04/09/18 at 08:54; Status DC Rocuronium Perris (Zemuron) 50 mg STK-MED ONCE .ROUTE ; Start 04/09/18 at 08:53 ; Stop 04/09/18 at 08:54; Status DC Midazolam HCl (Versed) 2 mg STK-MED ONCE .ROUTE ; Start 04/09/18 at 08:54; Stop 04/09/18 at 08:55; Status DC Fentanyl Citrate (Fentanyl 2ml Vial) 100 mcg STK-MED ONCE .ROUTE ; Start at 08:54; Stop 04/09/18 at 08:56; Status DC Ondansetron HCl (Zofran) 4 mg PRN Q8HRS PRN IV NAUSEA/VOMITING; Start 04/09/18 at 09:15; Stop 04/09/18 at 15:20; Status DC Morphine Sulfate (Morphine Sulfate) 4 mg PRN Q2HR PRN IV PAIN Last administered on 04/09/18at 19:45; Start 04/09/18 at 09:15; Stop 04/09/18 at 20:15; Status DC Ondansetron HCl (Zofran) 4 mg PRN Q6HRS PRN IV NAUSEA/VOMITING; Start 04/09/18 at 09:30; Stop 04/09/18 at 15:20; Status DC Fentanyl Citrate (Fentanyl 2ml Vial) 25 mcg PRN Q5MIN PRN IV MILD PAIN; Start 04/09/18 at 09:30; Stop 04/09/18 at 20:14; Status DC Fentanyl Citrate (Fentanyl 2ml Vial) 50 mcg PRN Q5MIN PRN IV MODERATE TO SEVERE PAIN Last administered on 04/09/18at 15:17; Start 04/09/18 at 09:30; Stop at 20:14; Status DC Morphine Sulfate (Morphine Sulfate) 1 mg PRN Q10MIN PRN IV SEVERE PAIN; Start 04/09/18 at 09:30; Stop 04/09/18 at 20:14; Status DC Ringer's Solution 1,000 ml @ 30 mls/hr Q24H IV ; Start 04/09/18 at 09:17; Stop 04/09/18 at 20:14; Status DC Lidocaine HCl (Xylocaine-Mpf 1% Vial) 2 ml PRN 1X PRN ID PRIOR TO IV START; Start 04/09/18 at 09:30; Stop 04/09/18 at 20:14; Status DC Prochlorperazine Edisylate (Compazine) 5 mg PACU PRN PRN IV NAUSEA, MRX1; Start 04/09/18 at 09:30; Stop 04/09/18 at 20:14; Status DC Bupivacaine HCl/ Epinephrine Bitart (Marcaine-Epi 0.25%-1:[id number]) 50 ml STK-MED ONCE .ROUTE ; Start 04/09/18 at 09:01; Stop 04/09/18 at 10:02; Status DC Albumin Human 500 ml @ As Directed STK-MED ONCE IV ; Start 04/09/18 at 10:23; Stop 04/09/18 at 10:24; Status DC Fentanyl Citrate (Fentanyl 2ml Vial) 100 mcg STK-MED ONCE .ROUTE ; Start at 11:00; Stop 04/09/18 at 11:01; Status DC Rocuronium Perris (Zemuron) 50 mg STK-MED ONCE .ROUTE ; Start 04/09/18 at 11:55 ; Stop 04/09/18 at 11:56; Status DC Neostigmine Methylsulfate (Neostigmine Methylsulfate) 5 mg STK-MED ONCE .ROUTE ; Start 04/09/18 at 13:26; Stop 04/09/18 at 13:27; Status DC Glycopyrrolate (Robinul) 1 mg STK-MED ONCE .ROUTE ; Start 04/09/18 at 13:26; Stop 04/09/18 at 13:27; Status DC Sevoflurane (Ultane) 90 ml STK-MED ONCE IH ; Start 04/09/18 at 13:53; Stop at 13:54; Status DC Morphine Sulfate (Morphine Sulfate) 10 mg STK-MED ONCE .ROUTE ; Start 04/09/18 at 14:57; Stop 04/09/18 at 14:58; Status DC Enoxaparin Sodium (Lovenox 40mg Syringe) 40 mg Q24H SQ ; Start 04/09/18 at 15:30 ; Status Cancel Sodium Chloride (Normal Saline Flush) 3 ml QSHIFT PRN IV AFTER MEDS AND BLOOD DRAWS; Start 04/09/18 at 15:00 Potassium Chloride/Sodium Chloride 1,000 ml @ 125 mls/hr Q8H IV Last administered on 04/11/18at 07:09; Start 04/09/18 at 14:54; Stop 04/11/18 at 09:29 ; Status DC Morphine Sulfate 30 ml @ 0 mls/hr CONT PRN PRN IV PER PROTOCOL; Start 04/09/18 at 15:00 Ondansetron HCl (Zofran) 4 mg PRN Q6HRS PRN IV NAUESA, 1ST CHOICE; Start at 15:00 Pantoprazole Sodium 80 mg/ Sodium Chloride 100 ml @ 10 mls/hr Q10H IV Last administered on 04/13/18at 08:37; Start 04/09/18 at 15:00; Stop 04/13/18 at 15:02 ; Status DC Enoxaparin Sodium (Lovenox 40mg Syringe) 40 mg Q24H SQ Last administered on at 05:40; Start 04/10/18 at 05:00 Lorazepam (Ativan) 2 mg PRN Q6HRS PRN IV ANXIETY / AGITATION Last administered on 04/10/18at 05:54; Start 04/09/18 at 16:15; Stop 04/10/18 at 09:45; Status DC Vancomycin HCl (Vanco Per Pharmacy) 1 each PRN DAILY PRN MC SEE COMMENTS Last administered on 04/10/18at 11:29; Start 04/09/18 at 18:30; Stop 04/11/18 at 08:09; Status DC Piperacillin Sod/ Tazobactam Sod (Zosyn Per Pharmacy) 1 each PRN DAILY PRN MC SEE COMMENTS; Start 04/09/18 at 18:30 Fluconazole/ Sodium Chloride 200 ml @ 100 mls/hr Q24H IV Last administered on 04/13/18at 18:53; Start 04/09/18 at 19:00 Vancomycin HCl 1.75 gm/Sodium Chloride 500 ml @ 250 mls/hr 1X ONCE IV Last administered on 04/09/18at 19:56; Start 04/09/18 at 19:00; Stop 04/09/18 at 20:59; Status DC Piperacillin Sod/ Tazobactam Sod 3.375 gm/Sodium Chloride 50 ml @ 100 mls/hr Q6HRS IV Last administered on 04/14/18at 05:39; Start 04/09/18 at 18:30 Morphine Sulfate (Morphine Sulfate) 2 mg PRN Q3HRS PRN IV MODERATE TO SEVERE PAIN; Start 04/09/18 at 18:45 Morphine Sulfate (Morphine Sulfate) 4 mg PRN Q3HRS PRN IV MODERATE TO SEVERE PAIN Last administered on 04/14/18at 09:36; Start 04/09/18 at 18:45 Morphine Sulfate (Morphine Sulfate) 5 mg PRN Q3HRS PRN IV MODERATE TO SEVERE PAIN Last administered on 04/11/18at 06:39; Start 04/09/18 at 18:45 Vancomycin HCl 1 gm/Sodium Chloride 250 ml @ 250 mls/hr Q24H IV Last administered on 04/10/18at 20:01; Start 04/10/18 at 20:00; Stop 04/11/18 at 08:09; Status DC Vancomycin HCl (Vancomycin Trough Level) 1 each 1X ONCE MC ; Start 04/11/18 at 19:30; Stop 04/11/18 at 19:30; Status DC Haloperidol Lactate (Haldol Inj) 5 mg 1X ONCE IVP Last administered on at 20:44; Start 04/09/18 at 20:45; Stop 04/09/18 at 20:46; Status DC Diphenhydramine HCl (Benadryl) 25 mg 1X ONCE IVP Last administered on at 22:47; Start 04/09/18 at 20:45; Stop 04/09/18 at 20:46; Status DC Albuterol Sulfate (Ventolin Neb Soln) 2.5 mg RTQID NEB Last administered on 04/10at 11:36; Start 04/10/18 at 10:00; Stop 04/10/18 at 13:30; Status DC Lorazepam (Ativan) 2 mg PRN Q4HRS PRN IV ANXIETY / AGITATION Last administered on 04/11/18at 05:13; Start 04/10/18 at 09:45; Stop 04/11/18 at 09:05; Status DC Albuterol/ Ipratropium (Duoneb) 3 ml RTQID NEB Last administered on 04/14/18at 08:06; Start 04/10/18 at 16:00 Albuterol Sulfate (Ventolin Neb Soln) 2.5 mg PRN Q4HRS PRN NEB SHORTNESS OF BREATH; Start 04/10/18 at 13:30 Nicotine (Nicoderm Cq 21mg) 1 patch DAILY TD Last administered on 04/14/18at 09: 37; Start 04/10/18 at 15:45 Haloperidol Lactate (Haldol Inj) 2 mg PRN Q6HRS PRN IVP AGITATION, 2ND CHOICE Last administered on 04/11/18at 08:43; Start 04/10/18 at 21:30; Stop 04/11/18 at 09:05; Status DC Linezolid/Dextrose 300 ml @ 300 mls/hr Q12HR IV Last administered on at 09:37; Start 04/11/18 at 09:00 Haloperidol Lactate (Haldol Inj) 1 mg PRN Q6HRS PRN IVP AGITATION, 2ND CHOICE Last administered on 04/12/18at 02:54; Start 04/11/18 at 09:15 Lorazepam (Ativan) 0.5 mg PRN Q4HRS PRN IV ANXIETY / AGITATION Last administered on 04/12/18at 07:11; Start 04/11/18 at 09:15; Stop 04/12/18 at 15:17 ; Status DC Amino Acids/ Glycerin/ Electrolytes 1,000 ml @ 80 mls/hr [id number] IV Last administered on 04/14/18at 00:05; Start 04/11/18 at 09:30 Sodium Chloride 1,000 ml @ 50 mls/hr Q20H IV Last administered on 04/13/18at 14 :32; Start 04/11/18 at 09:30 Pantoprazole Sodium (PROTONIX VIAL for IV PUSH) 40 mg DAILYAC IVP Last administered on 04/14/18at 09:36; Start 04/14/18 at 07:30 Active Scripts Active Reported No Known Medications Prior To Admisstion (Info) Each 1 Each Vitals/I & O Vital Sign - Last 24 Hours 04/13/18 04/13/18 04/13/18 04/13/18 10:45 11:14 12:51 14:31 Temp 98.1 98.1 Pulse 86 Resp 18 18 17 B/P (MAP) 117/76 (90) Pulse Ox 97 96 96 O2 Delivery Room Air Room Air Nasal Cannula Room Air O2 Flow Rate 2.0 04/13/18 04/13/18 04/13/18 04/13/18 15:00 15:05 16:52 19:00 Temp 100.2 98.6 100.2 98.6 Pulse 89 90 Resp 16 18 B/P (MAP) 121/77 (92) 126/72 (90) Pulse Ox 94 96 93 O2 Delivery Room Air Nasal Cannula Room Air O2 Flow Rate 2.0 04/13/18 04/13/18 04/13/18 04/13/18 19:40 19:42 20:21 22:28 Resp 16 16 O2 Delivery Room Air Nasal Cannula Nasal Cannula Room Air O2 Flow Rate 2.0 04/13/18 04/14/18 04/14/18 04/14/18 23:00 01:36 03:00 05:39 Temp 98.7 98.0 98.7 98.0 Pulse 87 85 Resp 18 16 18 18 B/P (MAP) 116/60 (78) 115/68 (84) Pulse Ox 93 93 O2 Delivery Room Air Room Air Room Air Room Air 04/14/18 04/14/18 04/14/18 04/14/18 06:14 07:00 08:08 09:36 Temp 100.6 100.6 Pulse 81 Resp 18 18 B/P (MAP) 112/76 (88) Pulse Ox 94 94 94 O2 Delivery Room Air Room Air Room Air Room Air Intake and Output 04/13/18 04/13/18 04/14/18 15:00 23:00 07:00 Intake Total 860 ml 4420 ml Output Total 1000 ml 40 ml Balance -1000 ml 860 ml 4380 ml YARED KAUR MD Apr 14, 2018 10:03
[2018-04-14 11:00] VITALS: BP 117/68
--- NOTE | 2018-04-14 12:25 | RAD ---
AP and Lateral Views of the Chest 04/14/2018 11:01 AM Indication: POST OP FEVERS
ABDOMINAL SURGERY 5 DAYS AGO Comparison: Chest radiograph April 09, 2018. Findings: There is no focal consolidation or infiltrate identified. The cardiomediastinal silhouette is within normal limits. There is no evidence of pneumothorax or pleural effusion. No acute osseous abnormalities are identified. Abdominal drain noted in the upper abdomen Impression: No evidence of acute cardiopulmonary process. Electronically signed by: William Barahona MD (04/14/2018 12:21 PM) [id number]
[2018-04-14 13:59] LABS: BILIRUBIN,URINE NEGATIVE (NEG); CLARITY,URINE CLOUDY; COLOR,URINE YELLOW; NITRITE,URINE NEGATIVE (NEG); PROTEIN,URINE 100 mg/dL (NEG-TRACE); UROBILINOGEN,URINE 0.2 mg/dL (0.2 mg/dL)
[2018-04-14 14:20] LABS: BACTERIA,URINE 0 /HPF (0-FEW); SQUAMOUS EPITHELIAL CELL,UR MOD /LPF
[2018-04-14 15:00] VITALS: BP 105/47
[2018-04-14] MEDS: FLUCONAZOLE 400MG/200ML PREMIX 200 ML IV SCH (17:15)
[2018-04-14] MEDS: IV NORMAL SALINE 1000ML BAG 1,000 ML IV SCH (17:16)
[2018-04-14 19:00] VITALS: BP 106/70
[2018-04-14 23:00] VITALS: BP 123/72
[2018-04-15] MEDS: PIPERACILLIN/TAZOBACTAM 3.375 GM in IV NORMAL SALINE 50ML 50 ML IV SCH ×3 (00:02→12:49)
[2018-04-15 03:00] VITALS: BP 121/68
[2018-04-15 04:20] LABS: BASO # 0.1 x10^3/uL (0.0-0.2); BASO % 1 % (0-3); EOS # 0.7 x10^3/uL (0.0-0.7); EOS % 5 % (0-3); HEMATOCRIT 27.7 % (36.0-47.0); HEMOGLOBIN 9.5 g/dL (12.0-15.5); LYMPH # 2.2 x10^3/uL (1.0-4.8); LYMPH % 18 % (24-48); MEAN CORPUSCULAR HEMOGLOBIN 32 pg (25-35); MEAN CORPUSCULAR HGB CONC 35 g/dL (31-37); MEAN CORPUSCULAR VOLUME 91 fL (79-100); MONO # 1.5 x10^3/uL (0.0-1.1); MONO % 12 % (0-9); NEUT % 64 % (31-73); PLATELET COUNT 342 x10^3/uL (140-400); RED BLOOD COUNT 3.03 x10^6/uL (3.50-5.40); RED CELL DISTRIBUTION WIDTH 13.5 % (11.5-14.5); WHITE BLOOD COUNT 12.5 x10^3/uL (4.0-11.0)
[2018-04-15] MEDS: MORPHINE SULFATE 4 MG/ML DISP.SYRIN. IV PRN (04:41)
[2018-04-15] MEDS: ENOXAPARIN 40 MG/0.4 ML SYRINGE. SQ SCH (04:45)
[2018-04-15] MEDS: AMINO AC 3%/ELECTROLYTE/GLYCER 1,000 ML IV SCH (05:25)
[2018-04-15 07:00] VITALS: BP 119/70
[2018-04-15] MEDS: IPRATRPIUM/ALBUTEROL 0.5/2.5MG 3 ML NEBU. NEB SCH ×4 (07:32→19:53)
[2018-04-15] MEDS: PANTOPRAZOLE IV PUSH 40 MG VIAL. IVP SCH (09:09)
[2018-04-15] MEDS: NICOTINE 21MG PATCH. TD SCH (09:10)
--- NOTE | 2018-04-15 09:11 | PATHOLOGY ---
[facility] Accession Number: [id number] . 01 Material submitted: . DISTAL STOMACH . 01 Clinical history: . Pneumoperitoneum. . 02 Diagnosis: Segment of stomach and attached portion of duodenum, distal stomach resection: - Acute perforation of proximal lesser curvature of stomach with transmural acute inflammation, spillage of gastric contents, and serosal and perigastric acute inflammation. - Mild superficial chronic inflammation of gastric body mucosa, focal. - Reactive changes of gastric antral mucosa, focal. - Reactive changes of perigastric lymph nodes. [facility]/04/14/2018 . 02 Comment: There is an acute perforation of the proximal lesser curvature of the stomach. This is most likely on the basis of local ischemia. There is no evidence of malignancy. (JPM:[facility] 04/14/2018) . 02 Electronically signed: . Claudio Patrick MD, Pathologist NPI- [id number] . 01 Gross description: . Received fresh from the operating room for intraoperative gross consultation, designated, "Britta Dhillon - Distal stomach" is a segment of stomach. The proximal margin of the stomach is open. The distal margin of the stomach is stapled closed. The stomach measures approximately 20 cm in length along the greater curvature, and is approximately 11.5 cm in length along the lesser curvature. The anterior serosa and the middle and inferior, posterior serosa is pink and glistening. There is grayish discoloration of the proximal superior posterior serosa and proximal lesser curvature fat. Within the latter area, there is a rounded defect of the stomach consisent with a perforation, measuring up to 1.5 cm. The greater curvature fat is yellow-red and without obvious nodules. The specimen is opened along the greater curvature. The gastric rugae are pink to thomas-guillen and appear preserved. The antral mucosa is pink-guillen and relatively smooth. There are no polyps or masses of the stomach or pyloric region noted. There is an ovoid-shaped defect (perforation) of the stomach along the lesser curvature, which does appear to extend to the proximal margin. This measures up to 2.5 cm in length. The wall of the stomach in this area is reddish-brown, softened and friable. There are no obvious tumor masses. The specimen is fixed in formalin prior to additional sectioning. (JPM:mml; 04/09/18) . Closing Coordinator sections are submitted as follows: A1-A2 area surrounding perforation A3 textile designs sales representative uninvolved gastric tissue [place] 04[place]10[place] Additional textile designs sales representative sections are submitted on April 13, 2018. A4 textile designs sales representative antrum A5 textile designs sales representative pyloric valve A6 distal margin A7 textile designs sales representative section of proximal margin closest to perforation A8-A9 sections of fibroadipose tissue surrounding perforation site A10 uninvolved mucosa adjacent to perforation site A11-A16 gastric fat submitted entirely [place] 04/13/[place] . INTRAOPERATIVE GROSS CONSULTATION: (Dr. Claudio Patrick) . Segment of stomach, distal stomach resection: - Perforation of proximal lesser curvature of stomach - no evidence of malignancy. . The results are displayed to Dr. Rojas in the operating room. (JPM:mml; 04/09/18) . . Gross consultation performed at [facility], [address] [place] [id number]. SYC/QLM . 02 Pathologist provided ICD-10: K29.00, K29.50 . 02 CPT . 263420 Performed at: 01 [facility] [address], [place] [id number] MD Gomez Arguelles MD Phone: [phone] Performed at: [address] [id number] MD Claudio Patrick MD Phone: [phone]
--- NOTE | 2018-04-15 09:30 | PDOC ---
JON ROBLES SKIN WASHER 04/15/18 0930: SURGICAL PROGRESS NOTE Subjective tolerating diet ambulating + flatus Vital Signs Vital Signs Date Time Temp Pulse Resp B/P (MAP) Pulse Ox O2 Delivery O2 Flow Rate FiO2 04/15/18 09:10 Room Air 04/15/18 07:00 98.2 82 18 119/70 (86) 93 98.2 04/14/18 17:11 2.0 I&O Intake and Output 04/15/18 07:00 Intake Total 1900 ml Output Total 1600 ml Balance 300 ml Intake Oral 1900 ml Output Urine Total 1600 ml # Voids 3 General: Alert, Oriented X3, Cooperative, No acute distress Abdomen: Soft, Other (incision c/d/i, no erythema, candelaria in place, scant nadrea drainage) Labs Laboratory Tests Test 04/14/18 03:35 04/14/18 13:35 04/14/18 22:55 04/15/18 03:40 White Blood Count 12.3 x10^3/uL (4.0-11.0) 12.5 x10^3/uL (4.0-11.0) Red Blood Count 3.28 x10^6/uL (3.50-5.40) 3.03 x10^6/uL (3.50-5.40) Hemoglobin 10.3 g/dL (12.0-15.5) 9.5 g/dL (12.0-15.5) Hematocrit 30.1 % (36.0-47.0) 27.7 % (36.0-47.0) Mean Corpuscular Volume 92 fL (79-100) 91 fL (79-100) Mean Corpuscular Hemoglobin 32 pg (25-35) 32 pg (25-35) Mean Corpuscular Hemoglobin Concent 34 g/dL (31-37) 35 g/dL (31-37) Red Cell Distribution Width 13.5 % (11.5-14.5) 13.5 % (11.5-14.5) Platelet Count 346 x10^3/uL (140-400) 342 x10^3/uL (140-400) Neutrophils (%) (Auto) 65 % (31-73) 64 % (31-73) Lymphocytes (%) (Auto) 17 % (24-48) 18 % (24-48) Monocytes (%) (Auto) 12 % (0-9) 12 % (0-9) Eosinophils (%) (Auto) 6 % (0-3) 5 % (0-3) Basophils (%) (Auto) 1 % (0-3) 1 % (0-3) Neutrophils # (Auto) 8.0 x10^3uL (1.8-7.7) 8.0 x10^3uL (1.8-7.7) Lymphocytes # (Auto) 2.0 x10^3/uL (1.0-4.8) 2.2 x10^3/uL (1.0-4.8) Monocytes # (Auto) 1.4 x10^3/uL (0.0-1.1) 1.5 x10^3/uL (0.0-1.1) Eosinophils # (Auto) 0.7 x10^3/uL (0.0-0.7) 0.7 x10^3/uL (0.0-0.7) Basophils # (Auto) 0.1 x10^3/uL (0.0-0.2) 0.1 x10^3/uL (0.0-0.2) Sodium Level 136 mmol/L (136-145) Potassium Level 3.5 mmol/L (3.5-5.1) Chloride Level 104 mmol/L (98-107) Carbon Dioxide Level 23 mmol/L (21-32) Anion Gap 9 (6-14) Blood Urea Nitrogen 12 mg/dL (7-20) Creatinine 0.9 mg/dL (0.6-1.0) Estimated GFR (Cockcroft-Gault) 65.5 Glucose Level 98 mg/dL (70-99) Calcium Level 8.9 mg/dL (8.5-10.1) Urine Collection Type Unknown Urine Color Yellow Urine Clarity Cloudy Urine pH 6.0 Urine Specific [place] 1.010 Urine Protein 100 mg/dL (NEG-TRACE) Urine Glucose (UA) Negative mg/dL (NEG) Urine Ketones (Stick) Negative mg/dL (NEG) Urine Blood Large (NEG) Urine Nitrite Negative (NEG) Urine Bilirubin Negative (NEG) Urine Urobilinogen Dipstick 0.2 mg/dL (0.2 mg/dL) Urine Leukocyte Esterase Trace (NEG) Urine RBC 6-10 /HPF (0-2) Urine WBC 5-10 /HPF (0-4) Urine Squamous Epithelial Cells Mod /LPF Urine Bacteria 0 /HPF (0-FEW) Urine Mucus Slight /LPF Lactic Acid Level 1.0 mmol/L (0.4-2.0) Laboratory Tests Test 04/14/18 13:35 04/14/18 22:55 04/15/18 03:40 Urine Collection Type Unknown Urine Color Yellow Urine Clarity Cloudy Urine pH 6.0 Urine Specific [place] 1.010 Urine Protein 100 mg/dL (NEG-TRACE) Urine Glucose (UA) Negative mg/dL (NEG) Urine Ketones (Stick) Negative mg/dL (NEG) Urine Blood Large (NEG) Urine Nitrite Negative (NEG) Urine Bilirubin Negative (NEG) Urine Urobilinogen Dipstick 0.2 mg/dL (0.2 mg/dL) Urine Leukocyte Esterase Trace (NEG) Urine RBC 6-10 /HPF (0-2) Urine WBC 5-10 /HPF (0-4) Urine Squamous Epithelial Cells Mod /LPF Urine Bacteria 0 /HPF (0-FEW) Urine Mucus Slight /LPF Lactic Acid Level 1.0 mmol/L (0.4-2.0) White Blood Count 12.5 x10^3/uL (4.0-11.0) Red Blood Count 3.03 x10^6/uL (3.50-5.40) Hemoglobin 9.5 g/dL (12.0-15.5) Hematocrit 27.7 % (36.0-47.0) Mean Corpuscular Volume 91 fL (79-100) Mean Corpuscular Hemoglobin 32 pg (25-35) Mean Corpuscular Hemoglobin Concent 35 g/dL (31-37) Red Cell Distribution Width 13.5 % (11.5-14.5) Platelet Count 342 x10^3/uL (140-400) Neutrophils (%) (Auto) 64 % (31-73) Lymphocytes (%) (Auto) 18 % (24-48) Monocytes (%) (Auto) 12 % (0-9) Eosinophils (%) (Auto) 5 % (0-3) Basophils (%) (Auto) 1 % (0-3) Neutrophils # (Auto) 8.0 x10^3uL (1.8-7.7) Lymphocytes # (Auto) 2.2 x10^3/uL (1.0-4.8) Monocytes # (Auto) 1.5 x10^3/uL (0.0-1.1) Eosinophils # (Auto) 0.7 x10^3/uL (0.0-0.7) Basophils # (Auto) 0.1 x10^3/uL (0.0-0.2) Assessment/Plan s/p subtotal gastrectomy advance diet at tolerated SUDHIR ORTEGA MD 04/15/18 0934: SURGICAL PROGRESS NOTE Assessment/Plan Agree with above JON ROBLES APRN Apr 15, 2018 09:30 SUDHIR ORTEGA MD Apr 15, 2018 09:34
--- NOTE | 2018-04-15 09:35 | PDOC ---
Infectious Disease Note Subjective Subjective says feeling better, ROS ROS no n/v/d/sob Vital Sign Vital Signs Vital Signs Date Time Temp Pulse Resp B/P (MAP) Pulse Ox O2 Delivery O2 Flow Rate FiO2 04/15/18 09:10 Room Air 04/15/18 07:00 98.2 82 18 119/70 (86) 93 98.2 04/14/18 17:11 2.0 Physical Exam PHYSICAL EXAM CONSTITUTIONAL: appears comfortable. Non verbal. deep sleep HEENT: Her pupils are equal and reactive. Normal conjunctivae. Oral cavity, pharynx clear. She has nasal cannula in place. NECK: Supple, no JVD. LUNGS: Decreased in the bases. HEART: S1, S2. ABDOMEN: Has a binder in place. Under the binder, she has a surgical dressing with a GLENYS in place with serous tinged fluid. Abdomen is softer with + bowel sounds. EXTREMITIES: No clubbing, cyanosis or gross edema. SKIN: Warm to touch without generalized signs of rash. NEUROLOGIC: She is non responsive s/p meds Labs Lab Laboratory Tests Test 04/14/18 13:35 04/14/18 22:55 04/15/18 03:40 Urine Collection Type Unknown Urine Color Yellow Urine Clarity Cloudy Urine pH 6.0 Urine Specific [place] 1.010 Urine Protein 100 mg/dL (NEG-TRACE) Urine Glucose (UA) Negative mg/dL (NEG) Urine Ketones (Stick) Negative mg/dL (NEG) Urine Blood Large (NEG) Urine Nitrite Negative (NEG) Urine Bilirubin Negative (NEG) Urine Urobilinogen Dipstick 0.2 mg/dL (0.2 mg/dL) Urine Leukocyte Esterase Trace (NEG) Urine RBC 6-10 /HPF (0-2) Urine WBC 5-10 /HPF (0-4) Urine Squamous Epithelial Cells Mod /LPF Urine Bacteria 0 /HPF (0-FEW) Urine Mucus Slight /LPF Lactic Acid Level 1.0 mmol/L (0.4-2.0) White Blood Count 12.5 x10^3/uL (4.0-11.0) Red Blood Count 3.03 x10^6/uL (3.50-5.40) Hemoglobin 9.5 g/dL (12.0-15.5) Hematocrit 27.7 % (36.0-47.0) Mean Corpuscular Volume 91 fL (79-100) Mean Corpuscular Hemoglobin 32 pg (25-35) Mean Corpuscular Hemoglobin Concent 35 g/dL (31-37) Red Cell Distribution Width 13.5 % (11.5-14.5) Platelet Count 342 x10^3/uL (140-400) Neutrophils (%) (Auto) 64 % (31-73) Lymphocytes (%) (Auto) 18 % (24-48) Monocytes (%) (Auto) 12 % (0-9) Eosinophils (%) (Auto) 5 % (0-3) Basophils (%) (Auto) 1 % (0-3) Neutrophils # (Auto) 8.0 x10^3uL (1.8-7.7) Lymphocytes # (Auto) 2.2 x10^3/uL (1.0-4.8) Monocytes # (Auto) 1.5 x10^3/uL (0.0-1.1) Eosinophils # (Auto) 0.7 x10^3/uL (0.0-0.7) Basophils # (Auto) 0.1 x10^3/uL (0.0-0.2) Micro Microbiology 04/11/18 Blood Culture - Preliminary, Resulted NO GROWTH AFTER 2 DAYS Objective Assessment Fever - ? Post op vs med vs ? withdrawl vs ID but abd improved and Chest clear - better Leukocytosis - reactive plus s/p Dexamethasone 04/09 Gastric perf Mild transaminitis S/p Exploratory laparoscopy, exploratory laparotomy, subtotal gastrectomy with Juan Luis-en-Y reconstruction 04/09 Encephalopathy - now medicated Substance abuse Plan Plan of Care zosyn/Fluconazole/Zyvox taper soon F/u labs/cults pt/ot D/w RN d/w Surgery MARYLU DARDEN MD Apr 15, 2018 09:35
[2018-04-15 11:00] VITALS: BP 142/73
--- NOTE | 2018-04-15 12:04 | PDOC ---
PROGRESS NOTES Chief Complaint Chief Complaint Gastric perf S/p Exploratory laparoscopy, exploratory laparotomy, subtotal gastrectomy with Juan Luis-en-Y reconstruction 04/09 toxic, metabolic Encephalopathy Substance abuse with Amph leukocytosis copd with smoking h/o CAD Fevers, resolved History of Present Illness History of Present Illness NO Williamson fevers Looking good Feeling well Starting to ambalate some WBC down to 12, hemoglobin stable at 9 Seen by NEERAJ LUQUE Patient request for Lidoderm patch to the back Plan: Lidoderm patch Regular diet I did add PTOT today Likely will go home tomorrow pending PT eval patient today. Vitals Vitals Vital Signs Date Time Temp Pulse Resp B/P (MAP) Pulse Ox O2 Delivery O2 Flow Rate FiO2 04/15/18 11:17 Room Air 04/15/18 07:00 98.2 82 18 119/70 (86) 93 98.2 04/14/18 17:11 2.0 Physical Exam Physical Exam CONSTITUTIONAL: appears comfortable. Non verbal. deep sleep HEENT: Her pupils are equal and reactive. Normal conjunctivae. Oral cavity, pharynx clear. She has nasal cannula in place. NECK: Supple, no JVD. LUNGS: Decreased in the bases. HEART: S1, S2. ABDOMEN: Has a binder in place. Under the binder, she has a surgical dressing with a ANDREA in place with serous tinged fluid. Abdomen is softer with + bowel sounds. EXTREMITIES: No clubbing, cyanosis or gross edema. SKIN: Warm to touch without generalized signs of rash. NEUROLOGIC: She is non responsive s/p meds General: Alert, Oriented X3, Cooperative, No acute distress Heart: Regular rate, Normal S1, Normal S2 Lungs: Other (bl decreased bs ) Abdomen: Soft, Other (incision c/d/i, no erythema, candelaria in place, scant andrea drainage) Extremities: No cyanosis Skin: No rashes Labs LABS Laboratory Tests Test 04/14/18 13:35 04/14/18 22:55 04/15/18 03:40 Urine Collection Type Unknown Urine Color Yellow Urine Clarity Cloudy Urine pH 6.0 Urine Specific [place] 1.010 Urine Protein 100 mg/dL (NEG-TRACE) Urine Glucose (UA) Negative mg/dL (NEG) Urine Ketones (Stick) Negative mg/dL (NEG) Urine Blood Large (NEG) Urine Nitrite Negative (NEG) Urine Bilirubin Negative (NEG) Urine Urobilinogen Dipstick 0.2 mg/dL (0.2 mg/dL) Urine Leukocyte Esterase Trace (NEG) Urine RBC 6-10 /HPF (0-2) Urine WBC 5-10 /HPF (0-4) Urine Squamous Epithelial Cells Mod /LPF Urine Bacteria 0 /HPF (0-FEW) Urine Mucus Slight /LPF Lactic Acid Level 1.0 mmol/L (0.4-2.0) White Blood Count 12.5 x10^3/uL (4.0-11.0) Red Blood Count 3.03 x10^6/uL (3.50-5.40) Hemoglobin 9.5 g/dL (12.0-15.5) Hematocrit 27.7 % (36.0-47.0) Mean Corpuscular Volume 91 fL (79-100) Mean Corpuscular Hemoglobin 32 pg (25-35) Mean Corpuscular Hemoglobin Concent 35 g/dL (31-37) Red Cell Distribution Width 13.5 % (11.5-14.5) Platelet Count 342 x10^3/uL (140-400) Neutrophils (%) (Auto) 64 % (31-73) Lymphocytes (%) (Auto) 18 % (24-48) Monocytes (%) (Auto) 12 % (0-9) Eosinophils (%) (Auto) 5 % (0-3) Basophils (%) (Auto) 1 % (0-3) Neutrophils # (Auto) 8.0 x10^3uL (1.8-7.7) Lymphocytes # (Auto) 2.2 x10^3/uL (1.0-4.8) Monocytes # (Auto) 1.5 x10^3/uL (0.0-1.1) Eosinophils # (Auto) 0.7 x10^3/uL (0.0-0.7) Basophils # (Auto) 0.1 x10^3/uL (0.0-0.2) Review of Systems Review of Systems back Pain otherwise the rest of 14 point systems reviewed negative Comment Review of Relevant I have reviewed the following items dariel (where applicable) has been applied. Labs Laboratory Tests Test 04/14/18 03:35 04/14/18 13:35 04/14/18 22:55 04/15/18 03:40 White Blood Count 12.3 x10^3/uL (4.0-11.0) 12.5 x10^3/uL (4.0-11.0) Red Blood Count 3.28 x10^6/uL (3.50-5.40) 3.03 x10^6/uL (3.50-5.40) Hemoglobin 10.3 g/dL (12.0-15.5) 9.5 g/dL (12.0-15.5) Hematocrit 30.1 % (36.0-47.0) 27.7 % (36.0-47.0) Mean Corpuscular Volume 92 fL (79-100) 91 fL (79-100) Mean Corpuscular Hemoglobin 32 pg (25-35) 32 pg (25-35) Mean Corpuscular Hemoglobin Concent 34 g/dL (31-37) 35 g/dL (31-37) Red Cell Distribution Width 13.5 % (11.5-14.5) 13.5 % (11.5-14.5) Platelet Count 346 x10^3/uL (140-400) 342 x10^3/uL (140-400) Neutrophils (%) (Auto) 65 % (31-73) 64 % (31-73) Lymphocytes (%) (Auto) 17 % (24-48) 18 % (24-48) Monocytes (%) (Auto) 12 % (0-9) 12 % (0-9) Eosinophils (%) (Auto) 6 % (0-3) 5 % (0-3) Basophils (%) (Auto) 1 % (0-3) 1 % (0-3) Neutrophils # (Auto) 8.0 x10^3uL (1.8-7.7) 8.0 x10^3uL (1.8-7.7) Lymphocytes # (Auto) 2.0 x10^3/uL (1.0-4.8) 2.2 x10^3/uL (1.0-4.8) Monocytes # (Auto) 1.4 x10^3/uL (0.0-1.1) 1.5 x10^3/uL (0.0-1.1) Eosinophils # (Auto) 0.7 x10^3/uL (0.0-0.7) 0.7 x10^3/uL (0.0-0.7) Basophils # (Auto) 0.1 x10^3/uL (0.0-0.2) 0.1 x10^3/uL (0.0-0.2) Sodium Level 136 mmol/L (136-145) Potassium Level 3.5 mmol/L (3.5-5.1) Chloride Level 104 mmol/L (98-107) Carbon Dioxide Level 23 mmol/L (21-32) Anion Gap 9 (6-14) Blood Urea Nitrogen 12 mg/dL (7-20) Creatinine 0.9 mg/dL (0.6-1.0) Estimated GFR (Cockcroft-Gault) 65.5 Glucose Level 98 mg/dL (70-99) Calcium Level 8.9 mg/dL (8.5-10.1) Urine Collection Type Unknown Urine Color Yellow Urine Clarity Cloudy Urine pH 6.0 Urine Specific [place] 1.010 Urine Protein 100 mg/dL (NEG-TRACE) Urine Glucose (UA) Negative mg/dL (NEG) Urine Ketones (Stick) Negative mg/dL (NEG) Urine Blood Large (NEG) Urine Nitrite Negative (NEG) Urine Bilirubin Negative (NEG) Urine Urobilinogen Dipstick 0.2 mg/dL (0.2 mg/dL) Urine Leukocyte Esterase Trace (NEG) Urine RBC 6-10 /HPF (0-2) Urine WBC 5-10 /HPF (0-4) Urine Squamous Epithelial Cells Mod /LPF Urine Bacteria 0 /HPF (0-FEW) Urine Mucus Slight /LPF Lactic Acid Level 1.0 mmol/L (0.4-2.0) Laboratory Tests Test 04/14/18 13:35 04/14/18 22:55 04/15/18 03:40 Urine Collection Type Unknown Urine Color Yellow Urine Clarity Cloudy Urine pH 6.0 Urine Specific [place] 1.010 Urine Protein 100 mg/dL (NEG-TRACE) Urine Glucose (UA) Negative mg/dL (NEG) Urine Ketones (Stick) Negative mg/dL (NEG) Urine Blood Large (NEG) Urine Nitrite Negative (NEG) Urine Bilirubin Negative (NEG) Urine Urobilinogen Dipstick 0.2 mg/dL (0.2 mg/dL) Urine Leukocyte Esterase Trace (NEG) Urine RBC 6-10 /HPF (0-2) Urine WBC 5-10 /HPF (0-4) Urine Squamous Epithelial Cells Mod /LPF Urine Bacteria 0 /HPF (0-FEW) Urine Mucus Slight /LPF Lactic Acid Level 1.0 mmol/L (0.4-2.0) White Blood Count 12.5 x10^3/uL (4.0-11.0) Red Blood Count 3.03 x10^6/uL (3.50-5.40) Hemoglobin 9.5 g/dL (12.0-15.5) Hematocrit 27.7 % (36.0-47.0) Mean Corpuscular Volume 91 fL (79-100) Mean Corpuscular Hemoglobin 32 pg (25-35) Mean Corpuscular Hemoglobin Concent 35 g/dL (31-37) Red Cell Distribution Width 13.5 % (11.5-14.5) Platelet Count 342 x10^3/uL (140-400) Neutrophils (%) (Auto) 64 % (31-73) Lymphocytes (%) (Auto) 18 % (24-48) Monocytes (%) (Auto) 12 % (0-9) Eosinophils (%) (Auto) 5 % (0-3) Basophils (%) (Auto) 1 % (0-3) Neutrophils # (Auto) 8.0 x10^3uL (1.8-7.7) Lymphocytes # (Auto) 2.2 x10^3/uL (1.0-4.8) Monocytes # (Auto) 1.5 x10^3/uL (0.0-1.1) Eosinophils # (Auto) 0.7 x10^3/uL (0.0-0.7) Basophils # (Auto) 0.1 x10^3/uL (0.0-0.2) Microbiology 04/11/18 Blood Culture - Preliminary, Resulted NO GROWTH AFTER 3 DAYS Medications Current Medications Sodium Chloride 1,000 ml @ 1,000 mls/hr 1X ONCE IV Last administered on at 07:36; Start 04/09/18 at 07:00; Stop 04/09/18 at 07:59; Status DC Ondansetron HCl (Zofran) 4 mg 1X ONCE IV Last administered on 04/09/18at 07:35; Start 04/09/18 at 07:00; Stop 04/09/18 at 07:02; Status DC Morphine Sulfate (Morphine Sulfate) 4 mg 1X ONCE IV Last administered on at 07:36; Start 04/09/18 at 07:00; Stop 04/09/18 at 07:03; Status DC Iohexol (Omnipaque 300 Mg/ml) 75 ml 1X ONCE IV Last administered on 04/09/18at 08:20; Start 04/09/18 at 07:15; Stop 04/09/18 at 07:16; Status DC Info (CONTRAST GIVEN -- Rx MONITORING) 1 each PRN DAILY PRN MC SEE COMMENTS; Start 04/09/18 at 07:15; Stop 04/11/18 at 07:14; Status DC Morphine Sulfate (Morphine Sulfate) 4 mg 1X ONCE IV ; Start 04/09/18 at 08:15; Stop 04/09/18 at 08:15; Status DC Morphine Sulfate (Morphine Sulfate) 6 mg 1X ONCE IV Last administered on at 08:10; Start 04/09/18 at 08:15; Stop 04/09/18 at 08:16; Status DC Lorazepam (Ativan) 1 mg 1X ONCE IV Last administered on 04/09/18at 08:41; Start 04/09/18 at 08:45; Stop 04/09/18 at 08:46; Status DC Piperacillin Sod/ Tazobactam Sod 3.375 gm/Sodium Chloride 50 ml @ 100 mls/hr 1X ONCE IV Last administered on 04/09/18at 08:54; Start 04/09/18 at 09:00; Stop 04/09/18 at 09:29; Status DC Sodium Chloride 1,000 ml @ 1,000 mls/hr 1X ONCE IV Last administered on at 08:45; Start 04/09/18 at 08:45; Stop 04/09/18 at 09:44; Status DC Propofol 20 ml @ As Directed STK-MED ONCE IV ; Start 04/09/18 at 08:53; Stop 04/09 at 08:54; Status DC Lidocaine HCl (Lidocaine Pf 2% Vial) 5 ml STK-MED ONCE .ROUTE ; Start 04/09/18 at 08:53; Stop 04/09/18 at 08:54; Status DC Dexamethasone Sodium Phosphate (Decadron) 20 mg STK-MED ONCE .ROUTE ; Start 04/09 at 08:53; Stop 04/09/18 at 08:54; Status DC Ondansetron HCl (Zofran) 4 mg STK-MED ONCE .ROUTE ; Start 04/09/18 at 08:53; Stop 04/09/18 at 08:54; Status DC Rocuronium Agar (Zemuron) 50 mg STK-MED ONCE .ROUTE ; Start 04/09/18 at 08:53 ; Stop 04/09/18 at 08:54; Status DC Midazolam HCl (Versed) 2 mg STK-MED ONCE .ROUTE ; Start 04/09/18 at 08:54; Stop 04/09/18 at 08:55; Status DC Fentanyl Citrate (Fentanyl 2ml Vial) 100 mcg STK-MED ONCE .ROUTE ; Start at 08:54; Stop 04/09/18 at 08:56; Status DC Ondansetron HCl (Zofran) 4 mg PRN Q8HRS PRN IV NAUSEA/VOMITING; Start 04/09/18 at 09:15; Stop 04/09/18 at 15:20; Status DC Morphine Sulfate (Morphine Sulfate) 4 mg PRN Q2HR PRN IV PAIN Last administered on 04/09/18at 19:45; Start 04/09/18 at 09:15; Stop 04/09/18 at 20:15; Status DC Ondansetron HCl (Zofran) 4 mg PRN Q6HRS PRN IV NAUSEA/VOMITING; Start 04/09/18 at 09:30; Stop 04/09/18 at 15:20; Status DC Fentanyl Citrate (Fentanyl 2ml Vial) 25 mcg PRN Q5MIN PRN IV MILD PAIN; Start 04/09/18 at 09:30; Stop 04/09/18 at 20:14; Status DC Fentanyl Citrate (Fentanyl 2ml Vial) 50 mcg PRN Q5MIN PRN IV MODERATE TO SEVERE PAIN Last administered on 04/09/18at 15:17; Start 04/09/18 at 09:30; Stop at 20:14; Status DC Morphine Sulfate (Morphine Sulfate) 1 mg PRN Q10MIN PRN IV SEVERE PAIN; Start 04/09/18 at 09:30; Stop 04/09/18 at 20:14; Status DC Ringer's Solution 1,000 ml @ 30 mls/hr Q24H IV ; Start 04/09/18 at 09:17; Stop 04/09/18 at 20:14; Status DC Lidocaine HCl (Xylocaine-Mpf 1% Vial) 2 ml PRN 1X PRN ID PRIOR TO IV START; Start 04/09/18 at 09:30; Stop 04/09/18 at 20:14; Status DC Prochlorperazine Edisylate (Compazine) 5 mg PACU PRN PRN IV NAUSEA, MRX1; Start 04/09/18 at 09:30; Stop 04/09/18 at 20:14; Status DC Bupivacaine HCl/ Epinephrine Bitart (Marcaine-Epi 0.25%-[id number]) 50 ml STK-MED ONCE .ROUTE ; Start 04/09/18 at 09:01; Stop 04/09/18 at 10:02; Status DC Albumin Human 500 ml @ As Directed STK-MED ONCE IV ; Start 04/09/18 at 10:23; Stop 04/09/18 at 10:24; Status DC Fentanyl Citrate (Fentanyl 2ml Vial) 100 mcg STK-MED ONCE .ROUTE ; Start at 11:00; Stop 04/09/18 at 11:01; Status DC Rocuronium Agar (Zemuron) 50 mg STK-MED ONCE .ROUTE ; Start 04/09/18 at 11:55 ; Stop 04/09/18 at 11:56; Status DC Neostigmine Methylsulfate (Neostigmine Methylsulfate) 5 mg STK-MED ONCE .ROUTE ; Start 04/09/18 at 13:26; Stop 04/09/18 at 13:27; Status DC Glycopyrrolate (Robinul) 1 mg STK-MED ONCE .ROUTE ; Start 04/09/18 at 13:26; Stop 04/09/18 at 13:27; Status DC Sevoflurane (Ultane) 90 ml STK-MED ONCE IH ; Start 04/09/18 at 13:53; Stop at 13:54; Status DC Morphine Sulfate (Morphine Sulfate) 10 mg STK-MED ONCE .ROUTE ; Start 04/09/18 at 14:57; Stop 04/09/18 at 14:58; Status DC Enoxaparin Sodium (Lovenox 40mg Syringe) 40 mg Q24H SQ ; Start 04/09/18 at 15:30 ; Status Cancel Sodium Chloride (Normal Saline Flush) 3 ml QSHIFT PRN IV AFTER MEDS AND BLOOD DRAWS; Start 04/09/18 at 15:00 Potassium Chloride/Sodium Chloride 1,000 ml @ 125 mls/hr Q8H IV Last administered on 04/11/18at 07:09; Start 04/09/18 at 14:54; Stop 04/11/18 at 09:29 ; Status DC Morphine Sulfate 30 ml @ 0 mls/hr CONT PRN PRN IV PER PROTOCOL; Start 04/09/18 at 15:00; Stop 04/15/18 at 09:33; Status DC Ondansetron HCl (Zofran) 4 mg PRN Q6HRS PRN IV NAUESA, 1ST CHOICE; Start at 15:00 Pantoprazole Sodium 80 mg/ Sodium Chloride 100 ml @ 10 mls/hr Q10H IV Last administered on 04/13/18at 08:37; Start 04/09/18 at 15:00; Stop 04/13/18 at 15:02 ; Status DC Enoxaparin Sodium (Lovenox 40mg Syringe) 40 mg Q24H SQ Last administered on at 04:45; Start 04/10/18 at 05:00 Lorazepam (Ativan) 2 mg PRN Q6HRS PRN IV ANXIETY / AGITATION Last administered on 04/10/18at 05:54; Start 04/09/18 at 16:15; Stop 04/10/18 at 09:45; Status DC Vancomycin HCl (Vanco Per Pharmacy) 1 each PRN DAILY PRN MC SEE COMMENTS Last administered on 04/10/18at 11:29; Start 04/09/18 at 18:30; Stop 04/11/18 at 08:09; Status DC Piperacillin Sod/ Tazobactam Sod (Zosyn Per Pharmacy) 1 each PRN DAILY PRN MC SEE COMMENTS; Start 04/09/18 at 18:30 Fluconazole/ Sodium Chloride 200 ml @ 100 mls/hr Q24H IV Last administered on 04/14/18at 17:15; Start 04/09/18 at 19:00; Stop 04/15/18 at 09:36; Status DC Vancomycin HCl 1.75 gm/Sodium Chloride 500 ml @ 250 mls/hr 1X ONCE IV Last administered on 04/09/18at 19:56; Start 04/09/18 at 19:00; Stop 04/09/18 at 20:59; Status DC Piperacillin Sod/ Tazobactam Sod 3.375 gm/Sodium Chloride 50 ml @ 100 mls/hr Q6HRS IV Last administered on 04/15/18at 05:24; Start 04/09/18 at 18:30 Morphine Sulfate (Morphine Sulfate) 2 mg PRN Q3HRS PRN IV MODERATE TO SEVERE PAIN Last administered on 04/15/18at 09:10; Start 04/09/18 at 18:45; Stop at 09:33; Status DC Morphine Sulfate (Morphine Sulfate) 4 mg PRN Q3HRS PRN IV MODERATE TO SEVERE PAIN Last administered on 04/15/18at 04:41; Start 04/09/18 at 18:45; Stop at 09:33; Status DC Morphine Sulfate (Morphine Sulfate) 5 mg PRN Q3HRS PRN IV MODERATE TO SEVERE PAIN Last administered on 04/11/18at 06:39; Start 04/09/18 at 18:45; Stop at 09:33; Status DC Vancomycin HCl 1 gm/Sodium Chloride 250 ml @ 250 mls/hr Q24H IV Last administered on 04/10/18at 20:01; Start 04/10/18 at 20:00; Stop 04/11/18 at 08:09; Status DC Vancomycin HCl (Vancomycin Trough Level) 1 each 1X ONCE MC ; Start 04/11/18 at 19:30; Stop 04/11/18 at 19:30; Status DC Haloperidol Lactate (Haldol Inj) 5 mg 1X ONCE IVP Last administered on at 20:44; Start 04/09/18 at 20:45; Stop 04/09/18 at 20:46; Status DC Diphenhydramine HCl (Benadryl) 25 mg 1X ONCE IVP Last administered on at 22:47; Start 04/09/18 at 20:45; Stop 04/09/18 at 20:46; Status DC Albuterol Sulfate (Ventolin Neb Soln) 2.5 mg RTQID NEB Last administered on 04/10at 11:36; Start 04/10/18 at 10:00; Stop 04/10/18 at 13:30; Status DC Lorazepam (Ativan) 2 mg PRN Q4HRS PRN IV ANXIETY / AGITATION Last administered on 04/11/18at 05:13; Start 04/10/18 at 09:45; Stop 04/11/18 at 09:05; Status DC Albuterol/ Ipratropium (Duoneb) 3 ml RTQID NEB Last administered on 04/15/18at 11:17; Start 04/10/18 at 16:00 Albuterol Sulfate (Ventolin Neb Soln) 2.5 mg PRN Q4HRS PRN NEB SHORTNESS OF BREATH; Start 04/10/18 at 13:30 Nicotine (Nicoderm Cq 21mg) 1 patch DAILY TD Last administered on 04/15/18at 09: 10; Start 04/10/18 at 15:45 Haloperidol Lactate (Haldol Inj) 2 mg PRN Q6HRS PRN IVP AGITATION, 2ND CHOICE Last administered on 04/11/18at 08:43; Start 04/10/18 at 21:30; Stop 04/11/18 at 09:05; Status DC Linezolid/Dextrose 300 ml @ 300 mls/hr Q12HR IV Last administered on at 09:10; Start 04/11/18 at 09:00; Stop 04/15/18 at 09:36; Status DC Haloperidol Lactate (Haldol Inj) 1 mg PRN Q6HRS PRN IVP AGITATION, 2ND CHOICE Last administered on 04/12/18at 02:54; Start 04/11/18 at 09:15 Lorazepam (Ativan) 0.5 mg PRN Q4HRS PRN IV ANXIETY / AGITATION Last administered on 04/12/18at 07:11; Start 04/11/18 at 09:15; Stop 04/12/18 at 15:17 ; Status DC Amino Acids/ Glycerin/ Electrolytes 1,000 ml @ 80 mls/hr [id number] IV Last administered on 04/15/18at 05:25; Start 04/11/18 at 09:30 Sodium Chloride 1,000 ml @ 50 mls/hr Q20H IV Last administered on 04/14/18at 17 :16; Start 04/11/18 at 09:30 Pantoprazole Sodium (PROTONIX VIAL for IV PUSH) 40 mg DAILYAC IVP Last administered on 04/15/18at 09:09; Start 04/14/18 at 07:30; Stop 04/15/18 at 09:33 ; Status DC Acetaminophen (Tylenol) 500 mg PRN Q6HRS PRN PO MILD PAIN / TEMP Last administered on 04/14/18at 13:01; Start 04/14/18 at 10:00 Pantoprazole Sodium (Protonix) 40 mg DAILYAC PO ; Start 04/16/18 at 07:30 Oxycodone/ Acetaminophen (Percocet 5/325) 1 tab PRN Q4HRS PRN PO PAIN; Start at 09:30 Active Scripts Active Reported No Known Medications Prior To Admisstion (Info) Each 1 Each Vitals/I & O Vital Sign - Last 24 Hours 04/14/18 04/14/18 04/14/18 04/14/18 13:02 15:00 15:47 17:11 Temp 98.4 98.4 Pulse 65 Resp 16 B/P (MAP) 105/47 (66) Pulse Ox 96 93 93 O2 Delivery Room Air Room Air Room Air Room Air O2 Flow Rate 2.0 04/14/18 04/14/18 04/14/18 04/14/18 19:00 19:29 20:00 20:21 Temp 99.0 99.0 Pulse 92 Resp 18 B/P (MAP) 106/70 (82) Pulse Ox 95 97 O2 Delivery Room Air Room Air Room Air Room Air 04/14/18 04/14/18 04/15/18 04/15/18 23:00 23:17 03:00 04:41 Temp 98.8 98.4 98.8 98.4 Pulse 93 84 Resp 18 18 B/P (MAP) 123/72 (89) 121/68 (85) Pulse Ox 96 94 O2 Delivery Room Air Room Air Room Air Room Air 04/15/18 04/15/18 04/15/18 04/15/18 06:37 07:00 07:33 08:15 Temp 98.2 98.2 Pulse 82 Resp 18 B/P (MAP) 119/70 (86) Pulse Ox 93 O2 Delivery Room Air Room Air Room Air Room Air 04/15/18 04/15/18 09:10 11:17 O2 Delivery Room Air Room Air Intake and Output 04/14/18 04/14/18 04/15/18 15:00 23:00 07:00 Intake Total 700 ml 1200 ml Output Total 1000 ml 600 ml Balance 700 ml 200 ml -600 ml YARED KAUR MD Apr 15, 2018 12:04
[2018-04-15] MEDS: oxyCODONE/APAP 5/325 1 TAB TABLET PO PRN ×3 (12:41→21:36)
[2018-04-15] MEDS: LIDOCAINE (700MG/PATCH) PATCH. TD SCH (12:44)
[2018-04-15] MEDS: IV NORMAL SALINE 1000ML BAG 1,000 ML IV SCH (13:30)
[2018-04-15 15:00] VITALS: BP 107/68
[2018-04-15 19:00] VITALS: BP 133/78
[2018-04-15] MEDS: LACTOBACILLUS RHAMNOSUS GG 1 CAPSULE. PO SCH (20:13)
[2018-04-15] MEDS: AMOXICILLIN/K CLAV 500/125MG TABLET. PO SCH (20:13)
[2018-04-15] MEDS ORDERED: PATCH REMOVAL. MC SCH (21:00)
[2018-04-15 23:00] VITALS: BP 124/65
[2018-04-16] MEDS: oxyCODONE/APAP 5/325 1 TAB TABLET PO PRN ×2 (02:09→06:26)
[2018-04-16 03:00] VITALS: BP 102/46
[2018-04-16 07:00] VITALS: BP 125/64
[2018-04-16] MEDS ORDERED: PANTOPRAZOLE 40 MG TABLET.DR. PO SCH (07:30)
[2018-04-16] MEDS: IPRATRPIUM/ALBUTEROL 0.5/2.5MG 3 ML NEBU. NEB SCH ×2 (07:44→11:17)
[2018-04-16] MEDS ORDERED: OXYC1TAB7 PO (08:50)
[2018-04-16] MEDS ORDERED: AMOX1TAB10 PO (08:50)
[2018-04-16] MEDS ORDERED: LIDO700A39 TD (08:50)
[2018-04-16] MEDS: LACTOBACILLUS RHAMNOSUS GG 1 CAPSULE. PO SCH (08:59)
[2018-04-16] MEDS: AMOXICILLIN/K CLAV 500/125MG TABLET. PO SCH (08:59)
[2018-04-16] MEDS: NICOTINE 21MG PATCH. TD SCH (09:00)
[2018-04-16] MEDS: LIDOCAINE (700MG/PATCH) PATCH. TD SCH (09:00)
--- NOTE | 2018-04-16 09:11 | PDOC ---
Infectious Disease Note Subjective Subjective says feeling better, ROS ROS no n/v/d/sob Vital Sign Vital Signs Vital Signs Date Time Temp Pulse Resp B/P (MAP) Pulse Ox O2 Delivery O2 Flow Rate FiO2 04/16/18 07:45 96 Room Air 04/16/18 07:30 17 04/16/18 07:00 98.5 71 125/64 (84) 98.5 Physical Exam PHYSICAL EXAM CONSTITUTIONAL: appears comfortable. Non verbal. deep sleep HEENT: Her pupils are equal and reactive. Normal conjunctivae. Oral cavity, pharynx clear. She has nasal cannula in place. NECK: Supple, no JVD. LUNGS: Decreased in the bases. HEART: S1, S2. ABDOMEN: Has a binder in place. Under the binder, she has a surgical dressing with a GLENYS in place with serous tinged fluid. Abdomen is softer with + bowel sounds. EXTREMITIES: No clubbing, cyanosis or gross edema. SKIN: Warm to touch without generalized signs of rash. NEUROLOGIC: She is non responsive s/p meds Labs Micro Microbiology 04/11/18 Blood Culture - Preliminary, Resulted NO GROWTH AFTER 2 DAYS Objective Assessment Fever - ? Post op vs med vs ? withdrawl vs ID but abd improved and Chest clear - better Leukocytosis - reactive plus s/p Dexamethasone 04/09 Gastric perf Mild transaminitis S/p Exploratory laparoscopy, exploratory laparotomy, subtotal gastrectomy with Juan Luis-en-Y reconstruction 04/09 Encephalopathy - now medicated Substance abuse Plan Plan of Care on augmentin, x 7 days F/u labs/cults pt/ot D/w RN d/w Surgery ok to d/c from ID stand point MARYLU DARDEN MD Apr 16, 2018 09:11
--- NOTE | 2018-04-16 10:36 | PDOC3 ---
Discharge Summary Visit Information Date of Admission: Apr 09, 2018 Date of Discharge: Apr 16, 2018 Admitting Diagnosis Comment: Gastric perf S/p Exploratory laparoscopy, exploratory laparotomy, subtotal gastrectomy with Juan Luis-en-Y reconstruction 04/09 toxic, metabolic Encephalopathy Substance abuse with Amph leukocytosis copd with smoking h/o CAD Fevers, resolved Brief Hospital Course Allergies Allergies Coded Allergies Type Severity Reaction Last Updated Verified No Known Drug Allergies 12/17/14 No Vital Signs Vital Signs Date Time Temp Pulse Resp B/P (MAP) Pulse Ox O2 Delivery O2 Flow Rate FiO2 04/16/18 08:15 Room Air 04/16/18 07:45 96 04/16/18 07:30 17 04/16/18 07:00 98.5 71 125/64 (84) 98.5 Lab Results Laboratory Tests Test 04/14/18 13:35 04/14/18 22:55 04/15/18 03:40 Urine Collection Type Unknown Urine Color Yellow Urine Clarity Cloudy Urine pH 6.0 Urine Specific [place] 1.010 Urine Protein 100 mg/dL (NEG-TRACE) Urine Glucose (UA) Negative mg/dL (NEG) Urine Ketones (Stick) Negative mg/dL (NEG) Urine Blood Large (NEG) Urine Nitrite Negative (NEG) Urine Bilirubin Negative (NEG) Urine Urobilinogen Dipstick 0.2 mg/dL (0.2 mg/dL) Urine Leukocyte Esterase Trace (NEG) Urine RBC 6-10 /HPF (0-2) Urine WBC 5-10 /HPF (0-4) Urine Squamous Epithelial Cells Mod /LPF Urine Bacteria 0 /HPF (0-FEW) Urine Mucus Slight /LPF Lactic Acid Level 1.0 mmol/L (0.4-2.0) White Blood Count 12.5 x10^3/uL (4.0-11.0) Red Blood Count 3.03 x10^6/uL (3.50-5.40) Hemoglobin 9.5 g/dL (12.0-15.5) Hematocrit 27.7 % (36.0-47.0) Mean Corpuscular Volume 91 fL (79-100) Mean Corpuscular Hemoglobin 32 pg (25-35) Mean Corpuscular Hemoglobin Concent 35 g/dL (31-37) Red Cell Distribution Width 13.5 % (11.5-14.5) Platelet Count 342 x10^3/uL (140-400) Neutrophils (%) (Auto) 64 % (31-73) Lymphocytes (%) (Auto) 18 % (24-48) Monocytes (%) (Auto) 12 % (0-9) Eosinophils (%) (Auto) 5 % (0-3) Basophils (%) (Auto) 1 % (0-3) Neutrophils # (Auto) 8.0 x10^3uL (1.8-7.7) Lymphocytes # (Auto) 2.2 x10^3/uL (1.0-4.8) Monocytes # (Auto) 1.5 x10^3/uL (0.0-1.1) Eosinophils # (Auto) 0.7 x10^3/uL (0.0-0.7) Basophils # (Auto) 0.1 x10^3/uL (0.0-0.2) Brief Hospital Course Ms. Dhillon is a 52 old female who stayed about 7 days with us because of a complicated or prolonged course of pneumoperitoneum. She has a history of subtotal gastrectomy with Juan Luis en Y and reconstruction on 04/09, unfortunately went into pneumoperitoneum needed exploratory laparoscopy by general surgery. Course remarkable for some toxic encephalopathy. She does have history of drug abuse. Self-pay, smoking history too. Had some fevers comanage with ID but cultures negative. Able to go home now with by mouth diet, ambulating very well with no PT needs, by mouth Augmentin for 7 days and has been cleared by [facility] for discharge. Procedures performed exploratory laparoscopy by [facility] COns[facility], ID Discharge disposition home follow-up [facility] 2 weeks To complete Augmentin for 7 days dc 31 mins > 50% dc educan and counseling Discharge Information Condition at Discharge: Improved, Stable Disposition/Orders: D/C to Home Scheduled Amoxicillin/Potassium Clav (Amox Tr-K Clv 500-125 Mg Tab) 1 Each Tablet, 1 TAB PO BID for 7 Days, #14 Prescribed by: YARED KAUR on 04/16/18 0850 Lidocaine (Lidocaine) 1 Each Adh..patch, 1 PATCH TD DAILY for 10 Days, #10 Prescribed by: YARED KAUR on 04/16/18 0850 Scheduled PRN Oxycodone Hcl/Acetaminophen (Oxycodone-Acetaminophen 5-325) 1 Each Tablet, 1 TAB PO PRN Q4HRS PRN for MODERATE-SEVERE PAIN for 30 Days Prescribed by: YARED KAUR on 04/16/18 0850 Miscellaneous Medications Info (No Known Medications Prior To Admisstion) Each, 1 EACH MC, (Reported) Entered as Reported by: Jackie Webster on 04/10/181432 Last Action: New Order on 04/10/181432 by YARED Mark MD Apr 16, 2018 10:36
[2018-04-16 11:00] VITALS: BP 109/72
--- NOTE | 2018-04-16 11:37 | PDOC ---
SURGICAL PROGRESS NOTE Subjective Patient doing well tolerating regular diet Vital Signs Vital Signs Date Time Temp Pulse Resp B/P (MAP) Pulse Ox O2 Delivery O2 Flow Rate FiO2 04/16/18 11:17 Room Air 04/16/18 11:00 98.5 84 18 109/72 (84) 96 98.5 I&O Intake and Output 04/16/18 07:00 # Voids 10 # Bowel Movements 2 PATIENT HAS A ALCOCER: No General: Alert, Oriented X3, Cooperative, No acute distress Abdomen: Normal bowel sounds, Soft, No tenderness, Other (wounds clean dry and intact GLENYS drain was serosanguineous drainage) Labs Laboratory Tests Test 04/14/18 13:35 04/14/18 22:55 04/15/18 03:40 Urine Collection Type Unknown Urine Color Yellow Urine Clarity Cloudy Urine pH 6.0 Urine Specific [place] 1.010 Urine Protein 100 mg/dL (NEG-TRACE) Urine Glucose (UA) Negative mg/dL (NEG) Urine Ketones (Stick) Negative mg/dL (NEG) Urine Blood Large (NEG) Urine Nitrite Negative (NEG) Urine Bilirubin Negative (NEG) Urine Urobilinogen Dipstick 0.2 mg/dL (0.2 mg/dL) Urine Leukocyte Esterase Trace (NEG) Urine RBC 6-10 /HPF (0-2) Urine WBC 5-10 /HPF (0-4) Urine Squamous Epithelial Cells Mod /LPF Urine Bacteria 0 /HPF (0-FEW) Urine Mucus Slight /LPF Lactic Acid Level 1.0 mmol/L (0.4-2.0) White Blood Count 12.5 x10^3/uL (4.0-11.0) Red Blood Count 3.03 x10^6/uL (3.50-5.40) Hemoglobin 9.5 g/dL (12.0-15.5) Hematocrit 27.7 % (36.0-47.0) Mean Corpuscular Volume 91 fL (79-100) Mean Corpuscular Hemoglobin 32 pg (25-35) Mean Corpuscular Hemoglobin Concent 35 g/dL (31-37) Red Cell Distribution Width 13.5 % (11.5-14.5) Platelet Count 342 x10^3/uL (140-400) Neutrophils (%) (Auto) 64 % (31-73) Lymphocytes (%) (Auto) 18 % (24-48) Monocytes (%) (Auto) 12 % (0-9) Eosinophils (%) (Auto) 5 % (0-3) Basophils (%) (Auto) 1 % (0-3) Neutrophils # (Auto) 8.0 x10^3uL (1.8-7.7) Lymphocytes # (Auto) 2.2 x10^3/uL (1.0-4.8) Monocytes # (Auto) 1.5 x10^3/uL (0.0-1.1) Eosinophils # (Auto) 0.7 x10^3/uL (0.0-0.7) Basophils # (Auto) 0.1 x10^3/uL (0.0-0.2) Assessment/Plan At his post partial gastrectomy doing quite well Surgically stable agree with discharge DAXA STEINER MD Apr 16, 2018 11:37
== END 2018-04-16 11:50 | disposition home or self-care (01) | DRG 326 ==
LOC: ER 06:50 → 1 WEST ICU 09:00 → 4 NORTH 04-11 10:59
PROVIDERS: ADMIT Family Medicine; ATTEND Family Medicine
PROC: 0DB60ZZ Excision of Stomach, Open Approach (ICD-10-PCS; 2018-04-09)
PROC: 0D160ZA Bypass Stomach to Jejunum, Open Approach (ICD-10-PCS; principal; 2018-04-09 10:30)
DX: K25.5 Chronic or unspecified gastric ulcer with perforation (principal); G92 Toxic encephalopathy; K66.8 Other specified disorders of peritoneum; F15.10 Other stimulant abuse, uncomplicated; I25.10 Atherosclerotic heart disease of native coronary artery without angina pectoris; D72.829 Elevated white blood cell count, unspecified; R74.0 Nonspecific elevation of levels of transaminase and lactic acid dehydrogenase [LDH]; F19.10 Other psychoactive substance abuse, uncomplicated; J44.9 Chronic obstructive pulmonary disease, unspecified; Z90.710 Acquired absence of both cervix and uterus; I25.2 Old myocardial infarction; Z90.49 Acquired absence of other specified parts of digestive tract; Z82.49 Family history of ischemic heart disease and other diseases of the circulatory system; Z72.0 Tobacco use
CPT/HCPCS: 36415; 71045; 71046; 74177; 80047; 80048; 80053; 80307; 81001; 83605; 83690; 83880; 84484; 85007; 85025; 87040; 87086; 87641; 88307; 93005; 94640; 94760; A7015; C9113; G0238; J1100; J1200; J1450; J1630; J1650; J2001; J2020; J2060; J2250; J2270; J2405; J2543; J2704; J2710; J3010; J3370; J3490; J7030; J7040; J7050; J7613; J7620; P9045; Q9967; G0479

== ENCOUNTER → 2019-01-06 | Outpatient (CLI) | payer BC ==
[~2019-01-06] MED LIST: AMOX1TAB10 PO; LIDO700A39 TD; OXYC1TAB7 PO
--- NOTE | 2019-01-06 17:08 | KCIC ---
DUPLEX SONOGRAPHY OF THE PERIPHERAL ARTERIAL SYSTEM OF THE RIGHT LOWER EXTREMITY Clinical indications: Calf claudication on the right side Findings: Duplex sonography of the peripheral arterial system of the right lower extremity including thomas scale and color flow and spectral waveform analysis was performed. There is a significant segmental stenosis of the right common femoral artery of at least 50%. There is increase in low resistance end diastolic flow throughout the right lower extremity. This starts at the common femoral artery even proximal to the stenosis. Therefore, aortoiliac inflow disease may be present as well. No occlusive disease is seen. The measurements were performed using the NASCET criteria. Peak systolic flow velocities are as follows: Common femoral artery- 266 cm/sec, profunda femoral artery -186 cm/sec, proximal superficial femoral artery -62 cm/sec, mid superficial femoral artery -57 cm/sec, distal superficial femoral artery- 65 cm/sec, popliteal artery -39 cm/sec, proximal posterior tibial artery- 29 cm/sec, distal posterior tibial artery- 37 cm/sec, peroneal artery- 20 cm/sec, anterior tibial artery- 18 cm/sec, dorsalis pedis artery -24 cm/sec. Impression: Significant segmental stenosis of the right common femoral artery of at least 50%. Possible aortoiliac inflow disease on the right side as well. Electronically signed by: Marcial Robert MD (01/06/2019 5:06 PM) [place] [id number]
== END | disposition home or self-care (01) ==
LOC: KCIC US 14:53
PROVIDERS: ATTEND Family Medicine
DX: I70.291 Other atherosclerosis of native arteries of extremities, right leg (principal)
CPT/HCPCS: 93926

== ENCOUNTER → 2019-02-17 | Outpatient (CLI) | payer BC ==
[~2019-02-17] MED LIST changes: +IOHEXOL 300 MG/ML 100ML VIAL. IV ONE; +LIDO700A21 TD; -LIDO700A39 TD
--- NOTE | 2019-02-18 10:29 | KCIC ---
CT ANGIO ABD ILEO/FEMOR RUNOFF Indication: Peripheral arterial disease, history of right calf claudication Technique: Postcontrast CT imaging was performed of the infrarenal abdominal aorta through the feet, multiplanar reconstruction images to include MIP and 3-D reconstruction images submitted. One or more of the following individualized dose reduction techniques were utilized for this examination: 1. Automated exposure control 2. Adjustment of the mA and/or kV according to patient size 3. Use of iterative reconstruction technique. Comparison: January 06, 2019 ultrasound exam Findings: And should be noted the exam only includes the distal aspect of the abdominal aorta and the abdominal visceral organs not included on this exam. There is some calcified plaque of the common and internal iliac arteries bilaterally without significant stenosis. There is more focal severe stenosis right common femoral artery with only trace residual lumen identified. No other significant focal stenosis is identified. Right peroneal artery is not well visualized beyond the level of the distal one third of the tibia/fibula. Left peroneal artery is seen to level of ankle. There is visualization of the anterior and posterior tibial arteries bilaterally. There is some diverticulosis of the visualized sigmoid colon. There is facet degenerative change of visualized lumbar spine. IMPRESSION: 1. There is a high-grade stenosis of the right common femoral artery. Electronically signed by: Russell Pope MD (02/18/2019 10:26 AM) [id number]
== END | disposition home or self-care (01) ==
LOC: KCIC CT 08:29
PROVIDERS: ATTEND Family Medicine
DX: I70.8 Atherosclerosis of other arteries (principal); I70.201 Unspecified atherosclerosis of native arteries of extremities, right leg; K57.30 Diverticulosis of large intestine without perforation or abscess without bleeding; I25.10 Atherosclerotic heart disease of native coronary artery without angina pectoris; F17.200 Nicotine dependence, unspecified, uncomplicated; Z90.49 Acquired absence of other specified parts of digestive tract; Z88.8 Allergy status to other drugs, medicaments and biological substances
CPT/HCPCS: 75635; Q9967

== ENCOUNTER 2021-05-15 15:21 | Emergency (ER) | payer SELFPAY ==
[~2021-05-15] VITALS: Ht 157.5 cm; Wt 59.9 kg
[~2021-05-15 15:21] MED LIST changes: -IOHEXOL 300 MG/ML 100ML VIAL. IV ONE
--- NOTE | 2021-05-15 17:50 | EKG ---
[facility] [address] [place] [address] Test Date: 2021-05-15 Test Time: 17:34:17 Pat Name: ANTHONY SCHMIDT Department: Room: Gender: F [employer] Professional: : [id number] Requested By: VIPIN GAN Order Number: [id number] Reading MD: Louis De Guzman Measurements Intervals [place] Rate: 69 P: 0 CT: 58 QRS: 191 QRSD: 192 T: 32 QT: 490 QTc: 527 Interpretive Statements SINUS RHYTHM Electronically Signed On 05-16-2021 13:03:14 CDT by Louis De Guzman
--- NOTE | 2021-05-15 17:56 | PHYS DOC ---
Past Medical History Past Medical History: CAD, COPD, High Cholesterol Additional Past Medical Histor: med noncompliant (VIPIN GAN) Past Surgical History: Cholecystectomy, Hysterectomy, Tubal ligation Additional Past Surgical Histo: BREAST LUMPECTOMY (VIPIN GAN) Smoking Status: Current Every Day Smoker Alcohol Use: None Drug Use: None (VIPIN GAN) General Adult EDM: Chief Complaint: CHEST PAIN Problems: (1) Chest pain (VIPIN GAN) HPI: HPI: Patient is a 55 year old female with history of COPD and prior ME who presents with complaints of chest tightness, nonproductive cough, shortness of breath for the past 3 days. Patient states her symptoms have worsened since onset and feels similar to when she had pneumonia last year. She reports associated intermittent palpitations. Patient received both doses of Covid vaccine, but she is unsure whether she received [place] or Pfizer. Patient states that 2 weeks ago, she was exposed to Covid by a family member. She states she has been both rapid and PCR swab 3 times a week with negative results consistently. Patient denies fever, hemoptysis, abdominal pain, N/V/D. Patient is a somewhat poor historian. She cannot describe her current symptoms, but does not know details of her personal medical history. For example she reports that she was on "life support" for a prior ME, however she denies having stents or CABG at that time. She states "they talked about a heart transplant" but that her heart "healed itself 50%." (VIPIN GAN) Review of Systems: Review of Systems: ROS negative except as mentioned in HPI. (VIPIN GAN) Heart Score: C/O Chest Pain: Yes HEART Score for Chest Pain: HEART Score for Chest Pain Response (Comments) Value History Slighlty/Non-Suspicious 0 ECG Normal 0 Age >45 - < 65 1 Risk Factors >3 Risk Factors or Hx CAD 2 Troponin < Normal Limit 0 Total 3 Risk Factors: Risk Factors: Current smoker, HTN, HLD, history of CAD, obesity. Risk Scores: Score 0 - 3: 2.5% MACE over next 6 weeks - Discharge Home Score 4 - 6: 20.3% MACE over next 6 weeks - Admit for Clinical Observation Score 7 - 10: 72.7% MACE over next 6 weeks - Early Invasive Strategies (VIPIN GAN) Allergies: Allergies: Allergies Coded Allergies Type Severity Reaction Last Updated Verified No Known Drug Allergies 12/17/14 No (VIPIN GAN) Physical Exam: PE: Constitutional: Well developed, well nourished, no acute distress, responsive but somewhat somnolent. Neck: Normal range of motion, no tenderness, supple, no stridor. Cardiovascular:Heart rate regular rhythm, no murmur. Lungs & Thorax: Bilateral breath sounds clear to auscultation. Abdomen: Bowel sounds normal, soft, no tenderness, no masses, no pulsatile masses. Skin: Warm, dry, no erythema, no rash. Extremities: No tenderness, no cyanosis, no clubbing, ROM intact, no edema. Neurologic: Alert and oriented X 3, normal motor function, normal sensory function, no focal deficits noted. (VIPIN GAN) Current Patient Data: Labs: Laboratory Tests Test 05/15/21 17:40 White Blood Count 10.5 x10^3/uL (4.0-11.0) Red Blood Count 4.42 x10^6/uL (3.50-5.40) Hemoglobin 13.7 g/dL (12.0-15.5) Hematocrit 40.3 % (36.0-47.0) Mean Corpuscular Volume 91 fL (79-100) Mean Corpuscular Hemoglobin 31 pg (25-35) Mean Corpuscular Hemoglobin Concent 34 g/dL (31-37) Red Cell Distribution Width 12.9 % (11.5-14.5) Platelet Count 444 x10^3/uL (140-400) Neutrophils (%) (Auto) 56 % (31-73) Lymphocytes (%) (Auto) 32 % (24-48) Monocytes (%) (Auto) 8 % (0-9) Eosinophils (%) (Auto) 3 % (0-3) Basophils (%) (Auto) 1 % (0-3) Neutrophils # (Auto) 5.8 x10^3/uL (1.8-7.7) Lymphocytes # (Auto) 3.4 x10^3/uL (1.0-4.8) Monocytes # (Auto) 0.9 x10^3/uL (0.0-1.1) Eosinophils # (Auto) 0.3 x10^3/uL (0.0-0.7) Basophils # (Auto) 0.1 x10^3/uL (0.0-0.2) Sodium Level 143 mmol/L (136-145) Potassium Level 3.7 mmol/L (3.5-5.1) Chloride Level 105 mmol/L (98-107) Carbon Dioxide Level 27 mmol/L (21-32) Anion Gap 11 (6-14) Blood Urea Nitrogen 12 mg/dL (7-20) Creatinine 1.1 mg/dL (0.6-1.0) Estimated GFR (Cockcroft-Gault) 51.4 BUN/Creatinine Ratio 11 (6-20) Glucose Level 59 mg/dL (70-99) Lactic Acid Level 0.8 mmol/L (0.4-2.0) Calcium Level 9.3 mg/dL (8.5-10.1) Total Bilirubin 0.4 mg/dL (0.2-1.0) Aspartate Amino Transf (AST/SGOT) 16 U/L (15-37) Alanine Aminotransferase (ALT/SGPT) 22 U/L (14-59) Alkaline Phosphatase 130 U/L (46-116) Troponin I Quantitative < 0.017 ng/mL (0.000-0.055) ED-Sye-A-Type Natriuretic Peptide 127 pg/mL (0-124) Total Protein 7.1 g/dL (6.4-8.2) Albumin 3.5 g/dL (3.4-5.0) Albumin/Globulin Ratio 1.0 (1.0-1.7) Vital Signs: Vital Signs Date Time Temp Pulse Resp B/P (MAP) Pulse Ox O2 Delivery O2 Flow Rate FiO2 05/15/21 17:00 98.0 74 24 149/71 (97) 99 Room Air 98.0 (VIPIN GAN) EKG: EKG: EKG Interpreted by Dr. Oliver: Rate 69 bpm and regular rhythm with no ectopic beats. QTc 527 ms. No STEMI. (VIPIN GAN) Radiology/Procedures: Radiology/Procedures: PROCEDURE: PORTABLE CHEST 1V XR CHEST 1V INDICATION: CP COMPARISON STUDY: 04/14/2018. FINDINGS: Lungs: Normal lung volume. No focal airspace disease. Normal pulmonary vasculature. Pleura: No pleural effusion or pneumothorax. Heart and Mediastinum: Normal cardiomediastinal silhouette and great vessels. IMPRESSION: No focal airspace disease. Electronically signed by: Russell Roque MD (05/15/2021 6:23 PM) [facility] (VIPIN GAN) Course & Med Decision Making: Course & Med Decision Making Pertinent Labs and Imaging studies reviewed. (See chart for details) There is significant artifact on EKG. When compared to prior EKG, no acute changes. Labs and imaging are not concerning for acute pneumonia, infection, heart failure. On reevaluation, patient states that this feels similar to prior COPD exacerbations. She will be discharged home with a 5-day course of prednisone p.o. Patient is agreeable to this plan. Return precautions were given for worsening shortness of breath, fever, new onset chest pain. (VIPIN GAN) Course & Med Decision Making Patients Care and treatment plan provided by ER Nurse Practitioner. I did evaluate the patient and agree with plan of care. (MICHAEL ANDERSON DO) Dragon Disclaimer: Dragon Disclaimer: This electronic medical record was generated, in whole or in part, using a voice recognition dictation system. (VIPIN GAN) Departure Departure Impression: Primary Impression: COPD exacerbation Disposition: 01 HOME / SELF CARE / HOMELESS Condition: STABLE Referrals: KELVIN TILLMAN MD (PCP) Patient Instructions: Chronic Obstructive Pulmonary Disease Exacerbation, [id number] Additional Instructions: Follow-up with your primary care provider if COPD exacerbations become more frequent. Return to emergency department for worsening shortness of breath, fever, new onset chest pain. Scripts Prednisone (PREDNISONE) 20 Mg Tablet 2 TAB PO DAILY for 5 Days, #10 TAB Take 2 tablets by mouth once per day for 5 days. Prov: VIPIN GAN 05/15/21 VIPIN GAN May 15, 2021 17:56 MICHAEL ANDERSON DO May 16, 2021 04:36
[2021-05-15 17:57] LABS: BASO # 0.1 x10^3/uL (0.0-0.2); BASO % 1 % (0-3); EOS # 0.3 x10^3/uL (0.0-0.7); EOS % 3 % (0-3); HEMATOCRIT 40.3 % (36.0-47.0); HEMOGLOBIN 13.7 g/dL (12.0-15.5); LYMPH # 3.4 x10^3/uL (1.0-4.8); LYMPH % 32 % (24-48); MEAN CORPUSCULAR HEMOGLOBIN 31 pg (25-35); MEAN CORPUSCULAR HGB CONC 34 g/dL (31-37); MEAN CORPUSCULAR VOLUME 91 fL (79-100); MONO # 0.9 x10^3/uL (0.0-1.1); MONO % 8 % (0-9); NEUT # 5.8 x10^3/uL (1.8-7.7); NEUT % 56 % (31-73); PLATELET COUNT 444 x10^3/uL (140-400); RED BLOOD COUNT 4.42 x10^6/uL (3.50-5.40); RED CELL DISTRIBUTION WIDTH 12.9 % (11.5-14.5); WHITE BLOOD COUNT 10.5 x10^3/uL (4.0-11.0)
[2021-05-15 18:08] LABS: CALCIUM 9.3 mg/dL (8.5-10.1); CREATININE 1.1 mg/dL (0.6-1.0); GFR 51.4; POTASSIUM 3.7 mmol/L (3.5-5.1)
[2021-05-15 18:14] LABS: ALBUMIN 3.5 g/dL (3.4-5.0); TOTAL BILIRUBIN 0.4 mg/dL (0.2-1.0); TOTAL PROTEIN 7.1 g/dL (6.4-8.2)
--- NOTE | 2021-05-15 18:25 | RAD ---
XR CHEST 1V INDICATION: CP COMPARISON STUDY: 04/14/2018. FINDINGS: Lungs: Normal lung volume. No focal airspace disease. Normal pulmonary vasculature. Pleura: No pleural effusion or pneumothorax. Heart and Mediastinum: Normal cardiomediastinal silhouette and great vessels. IMPRESSION: No focal airspace disease. Electronically signed by: Russell Roque MD (05/15/2021 6:23 PM) [facility]
[2021-05-15] MEDS ORDERED: PRED20TA PO (18:59)
[2021-05-15 19:30] VITALS: BP 134/71
== END 2021-05-15 19:45 | disposition home or self-care (01) ==
LOC: ER 15:21
DX: J44.1 Chronic obstructive pulmonary disease with (acute) exacerbation (principal); E78.00 Pure hypercholesterolemia, unspecified; F17.200 Nicotine dependence, unspecified, uncomplicated; I25.10 Atherosclerotic heart disease of native coronary artery without angina pectoris
CPT/HCPCS: 36415; 71045; 80053; 83605; 83880; 84484; 85025; 93005; 99285-25